=== PATIENT | male | born 2000 | race Caucasian/White ===

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

== ENCOUNTER → 2020-06-15 08:52 | Outpatient (CLI) | payer OTHER, SELFPAY ==
[2020-06-15 08:28] VITALS: BMI 19.5
[2020-06-15 12:51] LABS: Absolute Lymphocyte Count 2.95 X10^3/uL (0.83-4.51); Absolute Neutrophil Count 4.2 X10^3/uL (2.0-7.7); Basophil# 0.02 X10^3/uL; Basophil% 0.3 % (0-1); Eosinophil# 0.17 X10^3/uL; Eosinophils% 2.2 % (0-5); Hematocrit 45.9 % (40-54); Hemoglobin 14.8 g/dL (13.0-16.5); Lymphocyte # 2.95 X10^3/ul (4.0); Lymphocyte % 37.4 % (19-41); Mean Corp Hgb Conc 32.2 g/dL (32-36); Mean Corpuscular Hgb 30.1 pg (27.0-32.0); Mean Corpuscular Volume 93.5 fL (80-94); Mean Platelet Vol. 10.6 fl (6.2-12.0); Monocyte% 6.3 % (0-10); NRBC Flagged by Analyzer 0 % (0-5); Neutrophil # 4.24 X10^3/uL (2.7-7.7); Neutrophil % 53.7 % (47-70); Platelet Count 285 K/mm3 (150-450); RBC Distribution Width CV 11.5 % (11.6-14.6); RBC Distribution Width SD 39.6 fl (35.1-43.9); Red Blood Count 4.91 M/mm3 (4.6-6.2); White Blood Count 7.9 K/mm3 (4.4-11.0)
[2020-06-15 13:16] LABS: Anion Gap 5 (5-15); BUN 18 mg/dL (7-18); BUN/Creat Ratio 22.3 RATIO (10-20); Chloride 104 mmol/L (98-107); Creatinine, Serum 0.81 mg/dL (0.70-1.30); EST Glomerular Filtration Rate 129 mL/min (>60); Est Glom Filt Rate - Afr Amer 157 mL/min (>60); Glucose 99 mg/dL (74-106); Potassium 4.5 mmol/L (3.5-5.1); Sodium Level 139 mmol/L (136-145); T4 Free Direct 0.97 ng/dL (0.76-1.46); Thyroid Stim Hormone (TSH) 1.76 uIU/mL (0.358-3.74)
== END ==
PROVIDERS: PCP Family Medicine; Referring Provider Family Medicine; Visit Provider Family Medicine
DX: F41.9 Anxiety disorder, unspecified (principal); R53.83 Other fatigue; R00.0 Tachycardia, unspecified
CPT/HCPCS: 36415; 80048; 84439; 84443; 85025

== ENCOUNTER → 2020-07-06 07:38 | Outpatient (CLI) | payer OTHER, SELFPAY ==
[2020-06-15 08:28] VITALS: BMI 19.5
--- NOTE | 2020-07-06 07:43 | ECHOD_ITS ---
Reason For Study: possible marfans syncrome Procedure This was a 2D Doppler, Color Flow transthoracic echocardiogram. The study was technically difficult. Due to body habitus and poor apical windows. Exam performed in department. Left Ventricle Normal LV size. Left ventricular systolic function is normal. The estimated ejection fraction is 60 %. No evidence for diastolic dysfunction. No regional wall motion abnormalities noted. Right Ventricle Normal RV size. Normal systolic function. Atria Normal left atrium. Normal right atrium. No doppler evidence for ASD. Mitral Valve There is no mitral annular calcification. Anterior leaflet diffuse mitral valve thickening. Trivial mitral valve insufficiency. Tricuspid Valve Normal tricuspid valve. Trivial tricuspid valve insufficiency. Right ventricular systolic pressure estimated to be 20 mmHg. Aortic Valve Trisinus/trileaflet aortic valve. Normal aortic valve. Pulmonic Valve The pulmonic valve is not well visualized. Trivial pulmonic valve insufficiency. Great Vessels The aortic root is not well visualized. Pericardium/Pleural No pericardial effusion. MMode/2D Measurements & Calculations LVIDd: 4.4 cm IVSd: 1.0 cm Ao root diam: 3.1 cm LVIDs: 2.8 cm LVPWd: 1.0 cm RVDd: 3.1 cm FS: 35.9 % LA A4 area: 11.9 cm2 RA A4 area: 11.7 cm2 Time Measurements MV dec time: 0.19 sec Doppler Measurements & Calculations MV E max chetan: 78.8 cm/sec Lat Peak E' Chetan: 12.6 cm/sec Med Peak E' Chetan: 12.3 cm/sec MV A max chetan: 46.6 cm/sec E/E' lat: 6.3 E/E' med: 6.4 MV E/A: 1.7 PA V2 max: 79.7 cm/sec TR max chetan: 208.2 cm/sec TR max P.4 mmHg Interpretation Summary The study was technically difficult. Left ventricular systolic function is normal. The estimated ejection fraction is 60 %. Anterior leaflet diffuse mitral valve thickening. Trivial mitral valve insufficiency. Trivial tricuspid valve insufficiency. Trivial pulmonic valve insufficiency. Right ventricular systolic pressure estimated to be 20 mmHg. No evidence for diastolic dysfunction. Comment: The aortic root is not well visualized. Consider further evaluation of the thoracic aorta with chest CT scan with IV contrast if clinically indicated. Ordering Physician: Rodrigo Romeo Referring Physician: Rodrigo Romeo Performed By: Cyndi Smith RVT, RDCS and Student
== END ==
PROVIDERS: PCP Family Medicine; Referring Provider Family Medicine; Visit Provider Family Medicine
DX: R29.91 Unspecified symptoms and signs involving the musculoskeletal system (principal)
CPT/HCPCS: 93306

== ENCOUNTER → 2021-05-22 11:16 | Outpatient (CLI) | payer OTHER, SELFPAY ==
[2021-05-19 14:00] VITALS: BMI 19.5
--- NOTE | 2021-05-22 11:19 | EKG12_ITS ---
Test Reason : CP PALP Blood Pressure : / mmHG Vent. Rate : 061 BPM Atrial Rate : 061 BPM P-R Int : 152 ms QRS Dur : 082 ms QT Int : 392 ms P-R-T Axes : 057 067 064 degrees QTc Int : 394 ms Normal sinus rhythm Normal ECG Confirmed by JASON CODY, PASCUAL ([id number]), image editor ZARINA MARCUS ([id number]) on 05/23/2021 9:34:06 AM Referred By: Sabine Bobo Confirmed By:PASCUAL GOMEZ MD
== END ==
LOC: PSN 11:17
PROVIDERS: PCP Family Medicine; Referring Provider Physician Assistant; Visit Provider Physician Assistant
DX: R00.2 Palpitations (principal); R07.9 Chest pain, unspecified
CPT/HCPCS: 93005

== ENCOUNTER 2021-05-27 14:38 | Emergency (ER) | payer OTHER, SELFPAY ==
[2021-05-19 14:00] VITALS: BMI 19.5
[2021-05-27 14:38] VITALS: BP 129/83; PULSE 92; RESP 15; TEMP 36.8; O2SAT 100; BMI 20.3
--- NOTE | 2021-05-27 15:21 | EDS_ITS ---
HPI History of Present Illness Chief Complaint: Lower Extremity Injury Narrative Narrative: 21-year-old male presenting with pain in the right proximal femoral area medially. He states that it just appeared last night. Patient has not done anything strenuous. He states he has not felt a pop. He states this woke him up from sleep and he has a small lump here. Patient denies any testicular pain or penile pain. He denies dysuria or hematuria. He does have radiation of the pain down the leg anteriorly and posteriorly. He has not had fever, chills, nausea, vomiting. PFSH PFS Medical History Hearing problem IBS (irritable bowel syndrome) Seasonal allergies Home Medications calcium carbonate 200 mg calcium (500 mg) chewable tablet 200 mg PO .QID PRN tab 05/31/20 [History Last Taken Unknown] Allergy/AdvReac Type Severity Reaction Status Date / Time No Known Allergies Allergy Unverified 06/15/20 08:26 Family History Grandfather Cancer Parkinson disease Thyroid disorder Grandmother Cancer Osteoporosis Father Arthritis Myocardial infarction, Onset Age: 54 Cancer skin Spinal stenosis Mother Thyroid disorder Social History Smoking Status: Never smoker alcohol intake: current alcohol intake frequency: a few times a week substance use type: does not use what type of physical activity do you participate in: walking, running and weight training frequency: 3-4 times per week ROS ROS ED Constitutional Constitutional ED: Denies chills or fever(s) Eyes Eyes: Denies blurry vision or change in vision ENT ENT ED: Denies ear pain, rhinorrhea or sore throat Cardiovascular Cardiovascular: Denies chest pain or palpitations Respiratory/Chest Respiratory/Chest: Denies cough, dyspnea or sputum Gastrointestinal Gastrointestinal: Denies abdominal pain, nausea or vomiting Genitourinary Genitourinary ED: Denies dysuria or hematuria Musculoskeletal Musculoskeletal: Reports other Details: Small lump in the right proximal femoral region. ; Denies back pain Integumentary Denies abscess or rash Neurologic Neurologic: Denies headache(s) or weakness Psychiatric Psychiatric: Denies anxiety or depression EXAM Physical Exam Const Vital Signs: 05/27/21 14:38 05/27/21 18:32 Temperature 98.3 F Temperature Source Temporal Pulse Rate 92 66 Respiratory Rate 15 17 Blood Pressure 129/83 H 128/81 H Blood Pressure Mean 98 96 Pulse Ox 100 Oxygen Delivery Method Room Air Positive well nourished and well developed General Appearance ED: well developed HEENT Reports moist mucous membranes Negative for trauma Eyes PERRL and EOMs intact bilaterally Resp normal respiratory effort and clear to auscultation bilaterally Cardio regular rate and regular rhythm GI normal to inspection, nondistended, normoactive bowel sounds Extremity Extremity Narrative: Painful 2 cm lump in the right proximal femoral region. No erythema or ecchymosis. Neuro oriented x3 Sensorium / Orientation: alert Psych mental status grossly normal Skin no rashes or lesions noted and no wounds MDM MDM MDM Narrative Medical decision making narrative: Patient presents with painful area in the right inguinal region. I do see this and I am able to palpate it but it does not feel like an abscess or a lymph node. I also do not feel like it is a hernia. Patient stating the pain is very exquisite. I did lab work which shows no leukocytosis and has a negative lactic acid and a negative urinalysis. CT of the abdomen pelvis with IV contrast shows no acute findings in this area. Upon hearing the results the patient asked when can I go home. Patient counseled use Tylenol and ibuprofen for pain. Impression: 1. Right inguinal pain Lab Data Attestation: I reviewed the patient's lab results. Labs: Laboratory Results - last 24 hr 05/27/21 05/27/21 05/27/21 15:30 15:30 15:30 WBC 6.7 RBC 4.81 Hgb 14.7 Hct 43.6 MCV 90.6 MCH 30.6 MCHC 33.7 RDW Std Deviation 38.5 RDW Coeff of Amalia 11.4 L Plt Count 249 MPV 9.5 Immature Gran % (Auto) 0.500 Neut % (Auto) 71.7 H Lymph % (Auto) 16.8 L Mariposa % (Auto) 10.2 H Eos % (Auto) 0.5 Baso % (Auto) 0.3 Absolute Neuts (auto) 4.8 Absolute Lymphs (auto) 1.12 Nucleated RBC % 0 Sodium 138 Potassium 3.9 Chloride 104 Carbon Dioxide 28.0 Anion Gap 6 BUN 12 Creatinine 0.73 Estim Creat Clear Calc 171.62 Est GFR (MDRD) Af Amer 175 Est GFR (MDRD) Non-Af 144 BUN/Creatinine Ratio 16.5 Glucose 103 Lactic Acid 0.8 Calcium 9.1 Troponin I High Sens < 3.0 L Urine Color Urine Clarity Urine pH Ur Specific Grayling Urine Protein Urine Glucose (UA) Urine Ketones Urine Occult Blood Urine Nitrite Urine Bilirubin Urine Urobilinogen Ur Leukocyte Esterase Urine RBC Urine WBC Ur Squamous Epith Cells Amorphous Sediment Urine Bacteria Urine Mucus 05/27/21 15:46 WBC RBC Hgb Hct MCV MCH MCHC RDW Std Deviation RDW Coeff of Amalia Plt Count MPV Immature Gran % (Auto) Neut % (Auto) Lymph % (Auto) Mariposa % (Auto) Eos % (Auto) Baso % (Auto) Absolute Neuts (auto) Absolute Lymphs (auto) Nucleated RBC % Sodium Potassium Chloride Carbon Dioxide Anion Gap BUN Creatinine Estim Creat Clear Calc Est GFR (MDRD) Af Amer Est GFR (MDRD) Non-Af BUN/Creatinine Ratio Glucose Lactic Acid Calcium Troponin I High Sens Urine Color Yellow Urine Clarity Sl. Cloudy Urine pH 8.0 Ur Specific Grayling 1.015 Urine Protein Negative Urine Glucose (UA) Normal Urine Ketones 5 H Urine Occult Blood Negative Urine Nitrite Negative Urine Bilirubin Negative Urine Urobilinogen Normal Ur Leukocyte Esterase Negative Urine RBC 0 SEEN Urine WBC 0-5 SEEN Ur Squamous Epith Cells 0 SEEN Amorphous Sediment 1+ Urine Bacteria 0 SEEN Urine Mucus 0 SEEN Radiography Diagnostic Testing: Radiology Impression Abdomen/Pelvis CT 05/27/21 16:59 IMPRESSION: No acute findings in the abdomen or pelvis. Electronically Signed: Yves Guillen MD ([place]) at 17:26 EDT , Service support , Discharge Plan Triage Chief Complaint: Lower Extremity Injury ED Provider: Charles Lugo Dx/Rx/DC Orders Instructions: ED Groin Strain Prescriptions: No Action calcium carbonate 200 mg calcium (500 mg) tablet,chewable 200 mg PO .QID PRN (Reason: gerd) RF: 0 Stand Alone Forms: ED Work / School Excuse Primary Care Provider: Rodrigo Romeo Referrals: Rodrigo Romeo, DO [Primary Care Provider] - Disposition Disposition: Home, Self Care Discharge Date/Time: 05/27/21 18:37
[2021-05-27] MEDS: Ondansetron 4 MG/2 ML Vial IV (15:42)
[2021-05-27] MEDS: Morphine 4 MG/ML Syringe IV (15:42)
[2021-05-27 15:44] LABS: Absolute Lymphocyte Count 1.12 X10^3/uL (0.83-4.51); Absolute Neutrophil Count 4.8 X10^3/uL (2.0-7.7); Basophil# 0.02 X10^3/uL; Basophil% 0.3 % (0-1); Eosinophil# 0.03 X10^3/uL; Eosinophils% 0.5 % (0-5); Hematocrit 43.6 % (40-54); Hemoglobin 14.7 g/dL (13.0-16.5); Lymphocyte # 1.12 X10^3/ul (0.83-4.51); Lymphocyte % 16.8 % (19-41); Mean Corp Hgb Conc 33.7 g/dL (32-36); Mean Corpuscular Hgb 30.6 pg (27.0-32.0); Mean Corpuscular Volume 90.6 fL (80-94); Mean Platelet Vol. 9.5 fl (6.2-12.0); Monocyte# 0.68 X10^3/uL; Monocyte% 10.2 % (0-10); NRBC Flagged by Analyzer 0 % (0-5); Neutrophil # 4.78 X10^3/uL (2.7-7.7); Neutrophil % 71.7 % (47-70); Platelet Count 249 K/mm3 (150-450); RBC Distribution Width CV 11.4 % (11.6-14.6); RBC Distribution Width SD 38.5 fl (35.1-43.9); Red Blood Count 4.81 M/mm3 (4.6-6.2); White Blood Count 6.7 K/mm3 (4.4-11.0)
[2021-05-27 15:53] LABS: Bacteria 0 SEEN /hpf (None Seen); Mucous, Urine 0 SEEN /hpf (<or=2+); Red Blood Cells-Urine 0 SEEN /hpf (0-5); Squamous Epithelial Cells - UA 0 SEEN /hpf (0-5)
[2021-05-27 15:56] LABS: Color, Urine Yellow (Yellow); Glucose, Dipstick Normal (Normal); Ketone-Dipstick 5 mg/dl (Negative); Leukocyte Esterase-Dipstick Negative /ul (Negative); Nitrite-Dipstick Negative (Negative); Occult Blood-Urine Negative /ul (Negative); Protein-Dipstick Negative (Negative); Specific Gravity, Urine 1.015 (1.002-1.030); Urine Bilirubin Dipstick Negative (Negative); Urine Clarity Sl. Cloudy (Clear); Urine Urobilinogen Normal (Normal)
[2021-05-27 15:59] LABS: Anion Gap 6 (5-15); BUN 12 mg/dL (7-18); BUN/Creat Ratio 16.5 RATIO (10-20); Calcium,Total 9.1 mg/dL (8.5-10.1); Chloride 104 mmol/L (98-107); Creatinine, Serum 0.73 mg/dL (0.70-1.30); EST Glomerular Filtration Rate 144 mL/min (>60); Est Glom Filt Rate - Afr Amer 175 mL/min (>60); Estimated Creatinine Clearance 171.62 ml/min; Glucose 103 mg/dL (74-106); Potassium 3.9 mmol/L (3.5-5.1); Sodium Level 138 mmol/L (136-145); Troponin-I HS < 3.0 pg/mL (3.0-78.5)
[2021-05-27 16:09] LABS: Lactic Acid 0.8 mmol/L (0.4-1.9)
[2021-05-27 16:16] LABS: Amorphous Sediment 1+
[2021-05-27 16:17] LABS: White Blood Cells 0-5 SEEN /hpf (0-5)
--- NOTE | 2021-05-27 16:59 | CT_ITS ---
EXAM: CT ABDOMEN AND PELVIS WITH INTRAVENOUS CONTRAST CLINICAL INDICATION: rlq pain TECHNIQUE: Helically acquired images were obtained of the abdomen and pelvis with intravenous contrast. This CT exam was performed using one or more of the following dose reduction techniques: automated exposure control, adjustment of the mA and/or kV according to patient size, and/or use of iterative reconstruction technique. This report was created using [employer] report generation technology. CONTRAST: IV 100mL Isovue-300 COMPARISON: None. FINDINGS: LOWER THORAX: Unremarkable. Lung bases are clear. No cardiomegaly. No significant pericardial effusion. ABDOMEN: LIVER: Unremarkable. Homogeneous. No focal mass. GALLBLADDER AND BILE DUCTS: Unremarkable. No calcified gallstones. No gallbladder distention or wall edema. No intra- or extrahepatic biliary ductal dilation. PANCREAS: Unremarkable. No focal cystic or solid mass. SPLEEN: Spleen size at the upper limits of normal. ADRENALS: Unremarkable. No nodules. KIDNEYS AND URETERS: Unremarkable. Normal renal size and position. No hydronephrosis. STOMACH AND BOWEL: Unremarkable. No stomach or bowel distention. No focal inflammatory change. PELVIS: APPENDIX: No evidence of acute appendicitis. BLADDER: Unremarkable. REPRODUCTIVE: Unremarkable as visualized. No mass. ABDOMEN and PELVIS: INTRAPERITONEAL SPACE: Unremarkable. No ascites or other fluid collection. No free air. BONES/JOINTS: Unremarkable. No suspicious lytic or blastic abnormality. SOFT TISSUES: Unremarkable. No discrete abdominal or pelvic wall hernia. VASCULATURE: Unremarkable. Abdominal aorta is non-dilated. LYMPH NODES: Unremarkable. No enlarged lymph nodes. CT/Abdomen/Pelvis W IV Cont ONLY IMPRESSION: No acute findings in the abdomen or pelvis. Electronically Signed: Yves Guillen MD ([place]) at 17:26 EDT , Service support ,
[2021-05-27] MEDS: fentaNYL 100 MCG/2 ML Ampul 25 MCG IV (17:24)
[2021-05-27 18:32] VITALS: BP 128/81; PULSE 66; RESP 17
== END 2021-05-27 18:37 | disposition home or self-care (01) ==
PROVIDERS: Emergency Provider Student in an Organized Health Care Education/Training Program; PCP Family Medicine
DX: M79.651 Pain in right thigh (principal)
CPT/HCPCS: 74177; 80048; 81001; 83605; 84484; 85025; 96374; 96375; 99283; Q9967; A4216; J2405

== ENCOUNTER 2021-05-29 15:00 | Emergency (ER) | payer OTHER, SELFPAY ==
[2021-05-29 15:02] VITALS: BP 115/73; PULSE 106; RESP 15; TEMP 37.6; O2SAT 99; BMI 20.4
--- NOTE | 2021-05-29 16:29 | EDS_ITS ---
HPI History of Present Illness Chief Complaint: Fever Informant: patient Onset/Context/Timing Onset: Weeks (1) Context: Sudden Onset Timing: Continuous Quality: Throbbing, aching Location: Right inguinal area Worsened by: Ambulation Relieved by: Nothing Associated Symptoms Associated Symptoms: Dizziness and lightheadedness Narrative Narrative: Patient presents with right inguinal pain that has been getting worse over the past week. Patient was seen here 2 days ago and had labs and CT scan done at that time. Labs were normal and so was the CT scan. Patient was instructed to continue Tylenol or ibuprofen as needed for pain. Patient was instructed to follow-up with his primary care physician. Patient states that today when he called his primary care physician for follow-up he had a fever of 102 and his primary care physician then referred him back to the emergency department. Patient admits to some mild headache and neck pain. Patient denies any chest pain or shortness of breath. Patient denies any nausea or vomiting. Patient denies any urinary complaints. [facility] Medical History (Updated 05/29/21 @ 18:[address] Kwesi Villarreal DO) Hearing problem IBS (irritable bowel syndrome) Seasonal allergies Home Medications calcium carbonate 200 mg calcium (500 mg) chewable tablet 200 mg PO .QID PRN tab 05/31/20 [History Last Taken Unknown] cephalexin 500 mg PO Q6 #40 capsule 05/29/21 [Rx Last Taken Unknown] Allergy/AdvReac Type Severity Reaction Status Date / Time No Known Allergies Allergy Unverified 06/15/20 08:26 Family History Grandfather Cancer Parkinson disease Thyroid disorder Grandmother Cancer Osteoporosis Father Arthritis Myocardial infarction, Onset Age: 54 Cancer skin Spinal stenosis Mother Thyroid disorder no surgical history Social History Smoking Status: Never smoker alcohol intake: current alcohol intake frequency: a few times a week substance use type: does not use what type of physical activity do you participate in: walking, running and weight training frequency: 3-4 times per week ROS ROS ED Constitutional Constitutional ED: Reports fever(s); Denies chills Eyes Eyes: Denies blurry vision or change in vision ENT ENT ED: Denies rhinorrhea or sore throat Cardiovascular Cardiovascular: Denies chest pain or palpitations Respiratory/Chest Respiratory/Chest: Denies cough or dyspnea Gastrointestinal Gastrointestinal: Denies nausea or vomiting Genitourinary Genitourinary ED: Denies dysuria or hematuria Musculoskeletal Musculoskeletal: Reports neck pain; Denies back pain Integumentary Denies abscess or rash Neurologic Neurologic: Reports headache(s); Denies weakness Allergic/Immunologic Allergic/Immunologic ED: Denies mouth swelling or urticaria EXAM Physical Exam Const Vital Signs: 05/29/21 15:02 05/29/21 16:01 Temperature 99.6 F H Temperature Source Temporal Pulse Rate 106 H Respiratory Rate 15 Respiratory Effort Normal Non-Labored Respiratory Pattern Normal Blood Pressure 115/73 Blood Pressure Mean 87 Pulse Ox 99 Oxygen Delivery Method Room Air Positive well nourished and well developed General Appearance ED: well developed HEENT Reports moist mucous membranes Neck supple and no JVD Resp normal respiratory effort and clear to auscultation bilaterally Cardio regular rate, regular rhythm and no murmurs GI normal to inspection, nondistended, normoactive bowel sounds GI Narrative: There are no inguinal hernias palpated. Palpation: soft and tender other (Right inguinal); Negative for guarding or rebound tenderness present Extremity normal to inspection General Extremety ED: Negative for edema or tenderness General Extremity: Negative for edema Neuro oriented x3, CN's II-XII intact bilaterally and no sensory deficits noted Sensorium / Orientation: alert Motor Exam: strength 5/5 throughout Psych mental status grossly normal Skin no rashes or lesions noted MDM MDM MDM Narrative Medical decision making narrative: Patient was given IV fluids here. CBC and comprehensive metabolic profile were obtained and were essentially within normal limits. Urinalysis does not show any evidence of urinary tract infection. The tenderness in the right inguinal area is from tender swollen lymph nodes. There is no inguinal hernia noted. Patient was given a prescription for Keflex. Patient was instructed to continue Tylenol and ibuprofen as needed for any fevers or pain. Patient was instructed to follow-up with his primary care physician in 3 to 5 days. Patient understood and was agreeable with the plan. All questions were answered. Lab Data Attestation: I reviewed the patient's lab results. Labs: Laboratory Results - last 24 hr 05/29/21 05/29/21 05/29/21 16:41 16:50 16:50 WBC 4.1 L RBC 4.79 Hgb 14.8 Hct 43.3 MCV 90.4 MCH 30.9 MCHC 34.2 RDW Std Deviation 38.3 RDW Coeff of Amalia 11.5 L Plt Count 208 MPV 9.6 Immature Gran % (Auto) 0.700 Neut % (Auto) 69.5 Lymph % (Auto) 15.9 L [place] % (Auto) 13.2 H Eos % (Auto) 0.2 Baso % (Auto) 0.5 Absolute Neuts (auto) 2.8 Absolute Lymphs (auto) 0.65 L Nucleated RBC % 0 Sodium 137 Potassium 3.5 Chloride 100 Carbon Dioxide 30.0 Anion Gap 7 BUN 7 Creatinine 0.85 Estim Creat Clear Calc 148.17 Est GFR (MDRD) Af Amer 146 Est GFR (MDRD) Non-Af 121 BUN/Creatinine Ratio 8.2 L Glucose 123 H Calcium 8.9 Total Bilirubin 0.60 AST 19 ALT 21 Alkaline Phosphatase 79 Total Protein 7.6 Albumin 4.0 Globulin 3.6 Albumin/Globulin Ratio 1.1 Urine Color Yellow Urine Clarity Clear Urine pH 6.0 Ur Specific [place] 1.020 Urine Protein Negative Urine Glucose (UA) 50 H Urine Ketones 15 H Urine Occult Blood Negative Urine Nitrite Negative Urine Bilirubin Negative Urine Urobilinogen Normal Ur Leukocyte Esterase Negative Urine RBC 0 SEEN Urine WBC 0 SEEN Ur Squamous Epith Cells 0 SEEN Urine Bacteria 1+ Urine Mucus 0 SEEN Radiography Chest X-Ray - ED: 1 View, Read by ED Physician, Read by Radiologist and Normal Diagnostic Testing: Radiology Impression Chest X-Ray 05/29/21 16:49 IMPRESSION: Normal x-ray examination of the chest. Electronically Signed: Manjit Flowers DO at 16:57 EDT Tel [phone], Service support , Discharge Plan Triage Chief Complaint: Fever ED Provider: Kwesi Villarreal Dx/Rx/DC Orders Clinical Impression: Inguinal lymphadenitis Instructions: Lymphadenopathy Prescriptions: New cephalexin [cephalexin] 500 MG capsule 500 mg PO Q6 Qty: 40 RF: 0 No Action calcium carbonate 200 mg calcium (500 mg) tablet,chewable 200 mg PO .QID PRN (Reason: gerd) RF: 0 Primary Care Provider: Rodrigo Romeo Referrals: Rodrigo Romeo DO [Primary Care Provider] - 3-5 Days Disposition Disposition: Home, Self Care
[2021-05-29 16:48] LABS: Mucous, Urine 0 SEEN /hpf (<or=2+); Red Blood Cells-Urine 0 SEEN /hpf (0-5); Squamous Epithelial Cells - UA 0 SEEN /hpf (0-5); White Blood Cells 0 SEEN /hpf (0-5)
--- NOTE | 2021-05-29 16:49 | RAD_ITS ---
STUDY: X-RAY CHEST REASON FOR EXAM: Male, 21 years old. Fever. Swollen lymph nodes in brain for 2 days TECHNIQUE: Single AP portable view of the chest. COMPARISON: None. FINDINGS: The lungs are clear and expanded. There is no demonstrated pleural abnormality. Normal size heart. Normal mediastinum and laura. Normal visualized pulmonary arteries. Normal visualized aortic arch and descending thoracic aorta. Normal visualized thoracic spine. Normal visualized ribs, clavicles, and shoulders. There is no demonstrated abnormality of the visualized soft tissue structures of the upper abdomen. RAD/Chest 1 View (Portable) IMPRESSION: Normal x-ray examination of the chest. Electronically Signed: Manjit Flowers DO at 16:57 EDT Tel [phone], Service support ,
[2021-05-29] MEDS: 0.9% Normal Saline 1,000 ML 1000 ML IV (16:57)
[2021-05-29 17:04] LABS: Color, Urine Yellow (Yellow); Glucose, Dipstick 50 mg/dl (Normal); Ketone-Dipstick 15 mg/dl (Negative); Leukocyte Esterase-Dipstick Negative /ul (Negative); Nitrite-Dipstick Negative (Negative); Occult Blood-Urine Negative /ul (Negative); Protein-Dipstick Negative (Negative); Urine Bilirubin Dipstick Negative (Negative); Urine Clarity Clear (Clear); Urine Urobilinogen Normal (Normal)
[2021-05-29 17:24] LABS: Bacteria 1+ /hpf (None Seen)
[2021-05-29 17:24] LABS: Absolute Lymphocyte Count 0.65 X10^3/uL (0.83-4.51); Absolute Neutrophil Count 2.8 X10^3/uL (2.0-7.7); Basophil# 0.02 X10^3/uL; Basophil% 0.5 % (0-1); Eosinophil# 0.01 X10^3/uL; Eosinophils% 0.2 % (0-5); Hematocrit 43.3 % (40-54); Hemoglobin 14.8 g/dL (13.0-16.5); Lymphocyte # 0.65 X10^3/ul (0.83-4.51); Lymphocyte % 15.9 % (19-41); Mean Corp Hgb Conc 34.2 g/dL (32-36); Mean Corpuscular Hgb 30.9 pg (27.0-32.0); Mean Corpuscular Volume 90.4 fL (80-94); Mean Platelet Vol. 9.6 fl (6.2-12.0); Monocyte# 0.54 X10^3/uL; Monocyte% 13.2 % (0-10); NRBC Flagged by Analyzer 0 % (0-5); Neutrophil # 2.83 X10^3/uL (2.7-7.7); Neutrophil % 69.5 % (47-70); Platelet Count 208 K/mm3 (150-450); RBC Distribution Width CV 11.5 % (11.6-14.6); RBC Distribution Width SD 38.3 fl (35.1-43.9); Red Blood Count 4.79 M/mm3 (4.6-6.2); White Blood Count 4.1 K/mm3 (4.4-11.0)
[2021-05-29 17:41] LABS: ALB/GLOB Ratio 1.1 RATIO (0.9-2.4); AST(SGOT) 19 U/L (15-37); Alanine Aminotransfer ALT/SGPT 21 U/L (16-61); Alkaline Phosphatase 79 U/L (45-117); Anion Gap 7 (5-15); BUN 7 mg/dL (7-18); BUN/Creat Ratio 8.2 RATIO (10-20); Calcium,Total 8.9 mg/dL (8.5-10.1); Chloride 100 mmol/L (98-107); Creatinine, Serum 0.85 mg/dL (0.70-1.30); EST Glomerular Filtration Rate 121 mL/min (>60); Est Glom Filt Rate - Afr Amer 146 mL/min (>60); Estimated Creatinine Clearance 148.17 ml/min; Globulin 3.6 g/dL (2.2-4.2); Glucose 123 mg/dL (74-106); Potassium 3.5 mmol/L (3.5-5.1); Protein, Total 7.6 g/dL (6.4-8.2); Sodium Level 137 mmol/L (136-145)
[2021-05-29] MEDS: Cephalexin 500 MG Capsule PO (18:24)
[2021-05-29 18:25] VITALS: BP 114/67; PULSE 68; RESP 15; O2SAT 97
== END 2021-05-29 18:25 | disposition home or self-care (01) ==
PROVIDERS: Emergency Provider Emergency Medicine; PCP Family Medicine
DX: I88.9 Nonspecific lymphadenitis, unspecified (principal)
CPT/HCPCS: 71045; 80053; 81001; 85025; 99284; J7030

== ENCOUNTER → 2021-06-02 14:50 | Outpatient (CLI) | payer OTHER, SELFPAY ==
[2021-05-19 14:00] VITALS: BMI 19.5
[2021-06-01 09:39] VITALS: BMI 20.4
--- NOTE | 2021-06-02 14:55 | CT_ITS ---
STUDY: CT CHEST WITH CONTRAST REASON FOR EXAM: Male, 21 years old. possible marfan''s RADIATION DOSAGE (If Supplied By Facility): CTDIvol = ( 5.04 ) mGy, DLP = ( 280.02 ) mGycm TECHNIQUE: Transaxial imaging was performed following intravenous administration of IV 100ML ISOVUE 300. Multiplanar coronal and sagittal images were reformatted. Individualized dose optimization techniques were used for this CT. COMPARISON: None. FINDINGS: The lungs are normal. There is no demonstrated pleural abnormality. Normal heart and pericardium. Normal mediastinum. Normal hilar regions. Normal enhanced pulmonary arteries. Normal aorta arch and descending thoracic aorta. Relative narrowing of the AP dimension of the chest (at lower sternum) in relation to the transverse dimension (Ellen index measures 3.3). More pronounced posterior orientation of the xiphoid likely results in a higher index measurement. There is no demonstrated abnormality of the visualized upper abdomen. CT/Chest WITH Contrast IMPRESSION: 1. No thoracic aortic dissection or coarctation identified (not a dedicated CTA). 2. Pectus excavatum, which can be associated with Marfan''s syndrome. Electronically Signed: Yves Guillen MD ([place]) at 15:33 EDT , Service support ,
== END ==
LOC: CT 14:53
PROVIDERS: PCP Family Medicine; Referring Provider Physician Assistant; Visit Provider Physician Assistant
DX: R29.91 Unspecified symptoms and signs involving the musculoskeletal system (principal)
CPT/HCPCS: 71260; Q9967

== ENCOUNTER → 2021-09-20 16:11 | Outpatient (CLI) | payer OTHER, SELFPAY ==
[2021-09-20 16:50] LABS: Absolute Lymphocyte Count 2.32 X10^3/uL (0.83-4.51); Absolute Neutrophil Count 5.8 X10^3/uL (2.0-7.7); Basophil# 0.04 X10^3/uL; Basophil% 0.5 % (0-1); Eosinophil# 0.04 X10^3/uL; Eosinophils% 0.5 % (0-5); Hematocrit 48.1 % (40-54); Hemoglobin 16.1 g/dL (13.0-16.5); Lymphocyte # 2.32 X10^3/ul (0.83-4.51); Lymphocyte % 26.2 % (19-41); Mean Corp Hgb Conc 33.5 g/dL (32-36); Mean Corpuscular Hgb 30.7 pg (27.0-32.0); Mean Corpuscular Volume 91.6 fL (80-94); Mean Platelet Vol. 9.5 fl (6.2-12.0); Monocyte# 0.62 X10^3/uL; NRBC Flagged by Analyzer 0 % (0-5); Neutrophil % 65.5 % (47-70); Platelet Count 321 K/mm3 (150-450); RBC Distribution Width CV 11.9 % (11.6-14.6); RBC Distribution Width SD 39.8 fl (35.1-43.9); Red Blood Count 5.25 M/mm3 (4.6-6.2); White Blood Count 8.9 K/mm3 (4.4-11.0)
[2021-09-20 17:20] LABS: Hemoglobin A1c 4.9 % (3.8-5.6)
[2021-09-20 17:36] LABS: ALB/GLOB Ratio 1.2 RATIO (0.9-2.4); AST(SGOT) 18 U/L (15-37); Alanine Aminotransfer ALT/SGPT 24 U/L (16-61); Albumin, Serum 4.4 g/dL (3.2-5.0); Alkaline Phosphatase 71 U/L (45-117); Anion Gap 8 (5-15); BUN 14 mg/dL (7-18); BUN/Creat Ratio 15.7 RATIO (10-20); Calcium,Total 9.3 mg/dL (8.5-10.1); Chloride 103 mmol/L (98-107); Creatinine, Serum 0.89 mg/dL (0.70-1.30); EST Glomerular Filtration Rate 114 mL/min (>60); Est Glom Filt Rate - Afr Amer 138 mL/min (>60); Globulin 3.8 g/dL (2.2-4.2); Glucose 89 mg/dL (74-106); Magnesium 2.4 mg/dL (1.6-2.6); Potassium 3.4 mmol/L (3.5-5.1); Protein, Total 8.2 g/dL (6.4-8.2); Sodium Level 139 mmol/L (136-145); Thyroid Stim Hormone (TSH) 1.29 uIU/mL (0.358-3.74)
== END ==
LOC: BIMLAB 16:12
PROVIDERS: PCP Family Medicine; Referring Provider Nurse Practitioner Family; Visit Provider Nurse Practitioner Family
DX: R00.2 Palpitations (principal); R07.9 Chest pain, unspecified; R55 Syncope and collapse; R73.09 Other abnormal glucose
CPT/HCPCS: 36415; 80053; 83036; 83735; 84443; 85025

== ENCOUNTER 2021-11-14 21:17 | Observation (INO) | payer OTHER, SELFPAY ==
[2021-11-14 21:18] VITALS: BP 141/98; PULSE 89; RESP 17; TEMP 36.8; O2SAT 100
--- NOTE | 2021-11-14 21:39 | EKG12_ITS ---
Test Reason : SYNCOPE Blood Pressure : / mmHG Vent. Rate : 079 BPM Atrial Rate : 079 BPM P-R Int : 162 ms QRS Dur : 088 ms QT Int : 360 ms P-R-T Axes : 062 027 052 degrees QTc Int : 412 ms Normal sinus rhythm Normal ECG Confirmed by LIDIA CODY, KATHY ([id number]), offline editor ZARINA MARCUS ([id number]) on 11/17/2021 1:03:20 PM Referred By: REX Confirmed By:KATHY MURILLO MD
--- NOTE | 2021-11-14 21:50 | RAD_ITS ---
Single PA view of the chest. COMPARISON: CT chest 06/02/2021 and chest x-ray 05/29/2021. HISTORY: Palpitations. FINDINGS: Normal size heart with no evidence of pulmonary vascular congestion. Cardiomediastinal silhouette shows normal contours. Increased lung volumes likely due to deep inspiratory effort without flattening of the diaphragm. No airspace opacity or abnormal interstitial pattern. No pleural effusion or pneumothorax. No nodule or mass. Osseous structures are within normal limits for age. RAD/Chest 1 View IMPRESSION: Normal exam. Electronically Signed: Bobby Green DO at 22:47 EST Tel , Service support ,
[2021-11-14 22:00] LABS: Absolute Lymphocyte Count 2.02 X10^3/uL (0.83-4.51); Absolute Neutrophil Count 5.7 X10^3/uL (2.0-7.7); Basophil# 0.04 X10^3/uL; Basophil% 0.5 % (0-1); Eosinophil# 0.09 X10^3/uL; Eosinophils% 1.1 % (0-5); Hematocrit 48.4 % (40-54); Lymphocyte # 2.02 X10^3/ul (0.83-4.51); Mean Corp Hgb Conc 33.1 g/dL (32-36); Mean Corpuscular Hgb 30.6 pg (27.0-32.0); Mean Corpuscular Volume 92.5 fL (80-94); Mean Platelet Vol. 9.2 fl (6.2-12.0); Monocyte# 0.52 X10^3/uL; Monocyte% 6.2 % (0-10); NRBC Flagged by Analyzer 0 % (0-5); Neutrophil # 5.74 X10^3/uL (2.7-7.7); Platelet Count 377 K/mm3 (150-450); RBC Distribution Width CV 11.9 % (11.6-14.6); RBC Distribution Width SD 40.9 fl (35.1-43.9); Red Blood Count 5.23 M/mm3 (4.6-6.2); White Blood Count 8.4 K/mm3 (4.4-11.0)
[2021-11-14 22:26] LABS: ALB/GLOB Ratio 1.1 RATIO (0.9-2.4); AST(SGOT) 22 U/L (15-37); Alanine Aminotransfer ALT/SGPT 35 U/L (16-61); Albumin, Serum 4.6 g/dL (3.2-5.0); Alkaline Phosphatase 89 U/L (45-117); Anion Gap 6 (5-15); BUN 7 mg/dL (7-18); BUN/Creat Ratio 9.3 RATIO (10-20); Calcium,Total 9.3 mg/dL (8.5-10.1); Chloride 108 mmol/L (98-107); Creatinine, Serum 0.75 mg/dL (0.70-1.30); EST Glomerular Filtration Rate 139 mL/min (>60); Est Glom Filt Rate - Afr Amer 168 mL/min (>60); Estimated Creatinine Clearance 164.93 ml/min; Globulin 4.2 g/dL (2.2-4.2); Glucose 110 mg/dL (74-106); Potassium 3.8 mmol/L (3.5-5.1); Protein, Total 8.8 g/dL (6.4-8.2); Sodium Level 143 mmol/L (136-145); Troponin-I HS < 3 pg/mL (3.0-78.0)
[2021-11-14 22:30] LABS: Amphetamine Urine VISTA NEGATIVE (<1000 ng/mL); Barbiturate Urine VISTA NEGATIVE (< 200 ng/mL); Benzodiazepine Urine VISTA NEGATIVE (< 200 ng/mL); Cocaine Urine VISTA NEGATIVE (< 300 ng/mL); Ecstacy Urine VISTA NEGATIVE (< 500 ng/mL); Methadone Urine VISTA NEGATIVE (< 300 ng/mL); PCP Urine VISTA NEGATIVE (< 25 ng/mL); THC Urine VISTA NEGATIVE (< 50 ng/mL); Vista UDS pH Range 6
--- NOTE | 2021-11-14 23:41 | EDS_ITS ---
HPI History of Present Illness Chief Complaint: Syncope Narrative Narrative: Patient is a 21-year-old male who states over the last 3 months he has been having bouts of dizziness and palpitations. He states he started getting worked up as an outpatient by cardiology and had an event monitor performed a few weeks ago. The event monitor did show runs of narrow complex tachycardia and nonsustained ventricular tachycardia. He reports he takes 50 mg of metoprolol daily. He denies any illicit drug use or excessive stimulant use. He states that today he was just at home sitting on the couch when he had a bout of palpitations which then led to syncope. Father was present during this time and states there was no seizure-like activity or postictal phase. The syncopal event did happen twice within a few hours of each other. Therefore they contacted the patient's ceramic tile installation helper who advised him to come to the hospital for evaluation. [facility] Medical History Allergic rhinitis Anxiety Anxiety about health Chest pain Condyloma acuminata Hearing problem IBS (irritable bowel syndrome) Inguinal lymphadenitis Non-sustained ventricular tachycardia Palpitations Pectus excavatum Pre-syncope Seasonal allergies Home Medications omeprazole 20 mg capsule,delayed release 20 mg PO DAILY PRN 09/20/21 [History Last Taken Unknown] sertraline 50 mg tablet 50 mg PO QDAY #30 tab 09/20/21 [Rx Last Taken Unknown] metoprolol tartrate 25 mg tablet 25 mg PO DAILY #30 tab 11/13/21 [Rx Last Taken Unknown] Allergy/AdvReac Type Severity Reaction Status Date / Time cephalexin Allergy Mild Rash-Hives Verified 11/08/21 12:28 Family History Grandfather Cancer Parkinson disease Thyroid disorder Grandmother Cancer Osteoporosis Father Arthritis Myocardial infarction, Onset Age: 54 Cancer skin Spinal stenosis Heart disease atrial fib Mother Thyroid disorder Other CAD (coronary artery disease) Social History Smoking Status: Never smoker alcohol intake: current alcohol intake frequency: a few times a week substance use type: does not use what type of physical activity do you participate in: walking, running and weight training frequency: 3-4 times per week ROS ROS ED Constitutional Constitutional ED: Denies chills or fever(s) ENT ENT ED: Denies sore throat Cardiovascular Cardiovascular: Reports palpitations and racing heartbeat; Denies chest pain Respiratory/Chest Respiratory/Chest: Denies cough or dyspnea Gastrointestinal Gastrointestinal: Denies abdominal pain, diarrhea, nausea or vomiting Genitourinary Genitourinary ED: Denies dysuria Musculoskeletal Musculoskeletal: Denies myalgias Integumentary Denies rash Neurologic Neurologic: Reports other Details: Positive syncope ; Denies headache(s) Hematologic/Lymphatic Hematologic/Lymphatic: Denies easy bleeding or easy bruising EXAM Physical Exam Const Vital Signs: 11/14/21 21:18 11/14/21 21:48 11/14/21 23:56 Temperature 98.2 F Temperature Source Temporal Pulse Rate 89 90 Respiratory Rate 17 15 Respiratory Effort Normal Non-Labored Respiratory Pattern Normal Blood Pressure 141/98 H 132/89 H Blood Pressure Mean 112 103 Pulse Ox 100 97 Oxygen Delivery Method Room Air Room Air Positive well nourished and well developed General Appearance ED: well developed HEENT Reports moist mucous membranes HEENT Narrative: No tongue or cheek biting noted Eyes PERRL and EOMs intact bilaterally Neck supple Resp normal respiratory effort and clear to auscultation bilaterally Cardio regular rate and regular rhythm GI normal to inspection, nondistended, normoactive bowel sounds, non-tender, non- distended and no masses Auscultation: normoactive bowel sounds Palpation: soft Extremity normal to inspection Neuro oriented x3 and CN's II-XII intact bilaterally Sensorium / Orientation: alert Motor Exam: strength 5/5 throughout Psych mental status grossly normal Skin no rashes or lesions noted MDM MDM MDM Narrative Medical decision making narrative: Patient presented to the ER normal sinus rhythm but with his report of 2 bouts of syncope and palpitations as well as recent event monitor showing narrow complex tachycardia and nonsustained V. tach there was concern that he went into 1 of these dysrhythmias leading to his syncope this evening. Chest x-ray and basic blood work was obtained which shows no clinically significant finding. His ceramic tile installation helper does recommend an electrophysiology consultation. Secondary to this I contacted the [facility] who does agree that with the patient's worsening symptoms and recent dysrhythmias on the event monitor that he should be further evaluated. Therefore patient be transferred to their facility for further evaluation and treatment. The patient did remain hemodynamically stable for his entire stay in the ER Lab Data Attestation: I reviewed the patient's lab results. Labs: Laboratory Results - last 24 hr 11/14/21 11/14/21 11/14/21 21:50 21:50 21:50 WBC 8.4 RBC 5.23 Hgb 16.0 Hct 48.4 MCV 92.5 MCH 30.6 MCHC 33.1 RDW Std Deviation 40.9 RDW Coeff of Amalia 11.9 Plt Count 377 MPV 9.2 Immature Gran % (Auto) 0.200 Neut % (Auto) 68.0 Lymph % (Auto) 24.0 [place] % (Auto) 6.2 Eos % (Auto) 1.1 Baso % (Auto) 0.5 Absolute Neuts (auto) 5.7 Absolute Lymphs (auto) 2.02 Nucleated RBC % 0 Sodium 143 Potassium 3.8 Chloride 108 H Carbon Dioxide 29.0 Anion Gap 6 BUN 7 Creatinine 0.75 Estim Creat Clear Calc 164.93 Est GFR (MDRD) Af Amer 168 Est GFR (MDRD) Non-Af 139 BUN/Creatinine Ratio 9.3 L Glucose 110 H Calcium 9.3 Total Bilirubin 0.50 AST 22 ALT 35 Alkaline Phosphatase 89 Troponin I High Sens < 3 L Total Protein 8.8 H Albumin 4.6 Globulin 4.2 Albumin/Globulin Ratio 1.1 Urine Opiates Screen Urine Methadone Screen Ur Barbiturates Screen Ur Phencyclidine Scrn Ur Amphetamines Screen U Methamphetamin-MDMA U Benzodiazepines Scrn Urine Cocaine Screen U Cannabinoids Screen Ur Drug Screen Comment Ethyl Alcohol 173.0 11/14/21 22:00 WBC RBC Hgb Hct MCV MCH MCHC RDW Std Deviation RDW Coeff of Amalia Plt Count MPV Immature Gran % (Auto) Neut % (Auto) Lymph % (Auto) [place] % (Auto) Eos % (Auto) Baso % (Auto) Absolute Neuts (auto) Absolute Lymphs (auto) Nucleated RBC % Sodium Potassium Chloride Carbon Dioxide Anion Gap BUN Creatinine Estim Creat Clear Calc Est GFR (MDRD) Af Amer Est GFR (MDRD) Non-Af BUN/Creatinine Ratio Glucose Calcium Total Bilirubin AST ALT Alkaline Phosphatase Troponin I High Sens Total Protein Albumin Globulin Albumin/Globulin Ratio Urine Opiates Screen NEGATIVE Urine Methadone Screen NEGATIVE Ur Barbiturates Screen NEGATIVE Ur Phencyclidine Scrn NEGATIVE Ur Amphetamines Screen NEGATIVE U Methamphetamin-MDMA NEGATIVE U Benzodiazepines Scrn NEGATIVE Urine Cocaine Screen NEGATIVE U Cannabinoids Screen NEGATIVE Ur Drug Screen Comment Ethyl Alcohol Radiography Diagnostic Testing: Clinical Impression(s) from Imaging Studies Chest X-Ray 11/14/21 21:50 IMPRESSION: Normal exam. Electronically Signed: Bobby Green DO at 22:47 EST Tel , Service support , Discharge Plan Triage Chief Complaint: Syncope ED Provider: Fady Reddy Dx/Rx/DC Orders Clinical Impression: Syncope, Palpitations Prescriptions: No Action omeprazole 20 mg capsule,delayed release(DR/EC) 20 mg PO DAILY PRN (Reason: Heartburn) RF: 0 sertraline 50 mg tablet 50 mg PO QDAY Qty: 30 RF: 1 metoprolol tartrate 25 mg tablet 25 mg PO DAILY Qty: 30 RF: 3 Primary Care Provider: Rodrigo Romeo Referrals: Rodrigo Romeo DO [Primary Care Provider] - Disposition Disposition: Transfer to Another Type HCF Discharge Location: [facility]
[2021-11-14 23:56] VITALS: BP 132/89; PULSE 90; RESP 15; O2SAT 97
[2021-11-15] VITALS (12 sets, daily range): BP systolic 95–154; BP diastolic 58–96; PULSE 58–82; RESP 15–20; TEMP 36.4–36.8; O2SAT 95–99; BMI 19.3
--- NOTE | 2021-11-15 00:02 | ED.RN ---
[facility] DENIED THE PATIENT DUE TO BEING OUT OF THE ZONE, [facility] SAID NO DUE TO HIM BEING OVER 18 AND [facility] IS TALKING TO [place]
[2021-11-15 02:03] LABS: Magnesium 2.6 mg/dL (1.6-2.6)
--- NOTE | 2021-11-15 03:37 | ED.RN ---
CALLED [facility] FOR A BED UPDATE, THEY SAID WE ARE STILL WAITING ON A BED ASSIGNMENT
--- NOTE | 2021-11-15 08:52 | NURSING ---
CALLED [facility] TRANSFER LINE. TALKED TO DHEERAJ.. BEDS ARE CRITICAL. NO BED YET
--- NOTE | 2021-11-15 09:51 | PCM.HP.STD ---
HPI - General General Date of Admission: 11/15/21 HPI Narrative CINDY CUNNINGHAM, is a 21 M came to ED for palpitation. Patient has palpitation ongoing since May but is progressively getting worse and is more related with exertion and work. Patient has episodes of dizziness and palpitations and 1 day before admission when he was in the bar and had for 12 ounces beer he passed out for few seconds according to his friends. After that his father told him to come to ER. Patient also having flushing sensation, palpitation and dizziness. Prior to that patient has been evaluated by heat and frost insulator Dr. Post lead EKG and 2D echo. Twelve-lead EKG on 22 May 2021 shows normal sinus rhythm, P mitrale similar to the present EKG at 79 bpm, QTC 412 ms. Normal axis, MA interval and QRS duration. TSH, serial troponins and magnesium are normal. Patient had Covid infection past October 2020 and was vaccinated in . [facility] Medical History Allergic rhinitis Anxiety Anxiety about health Chest pain Condyloma acuminata Hearing problem IBS (irritable bowel syndrome) Inguinal lymphadenitis Non-sustained ventricular tachycardia Palpitations Pectus excavatum Pre-syncope Seasonal allergies Home Medications omeprazole 20 mg capsule,delayed release 20 mg PO DAILY PRN 09/20/21 [History Last Taken 11/13/21] sertraline 50 mg tablet 50 mg PO QDAY #30 tab 09/20/21 [Rx Last Taken 11/14/21 19:00] metoprolol tartrate 25 mg tablet 25 mg PO DAILY #30 tab 11/13/21 [Rx Last Taken 11/14/21 19:00] acetaminophen [Tylenol] 650 mg PO Q4H PRN 11/15/21 [History Last Taken Unknown] Allergy/AdvReac Type Severity Reaction Status Date / Time cephalexin Allergy Mild Rash-Hives Verified 11/08/21 12:28 Family History Grandfather Cancer Parkinson disease Thyroid disorder Grandmother Cancer Osteoporosis Father Arthritis Myocardial infarction, Onset Age: 54 Cancer skin Spinal stenosis Heart disease atrial fib Mother Thyroid disorder Other CAD (coronary artery disease) Social History Smoking Status: Current some day smoker tobacco type: cigarettes alcohol intake: current alcohol intake frequency: a few times a week substance use type: does not use what type of physical activity do you participate in: walking, running and weight training frequency: 3-4 times per week ROS ROS Narrative Constitutional: Reports fatigue and weakness HEENT: Reports systems reviewed and no addt'l complaints, except as documented Respiratory/Chest: As mentioned in HPI Gastrointestinal: Denies coffee ground emesis, hematemesis or vomiting Genitourinary: Denies burning urination or new urinary tract symptoms Musculoskeletal: Denies joint pain or limited range of motion Neurologic: Denies seizure-like activity skin: No ulcer. No rash Endocrinology: Reports systems reviewed and no addt'l complaints, except as documented Hematologic/Lymphatic: Reports systems reviewed and no addt'l complaints, except as documented Rest 12 ROS are negative except as mentioned in HPI Vital Signs Vital Signs Vital Signs: 11/14/21 21:18 11/14/21 21:48 11/14/21 23:56 Temperature 98.2 F Temperature Source Temporal Pulse Rate 89 90 Respiratory Rate 17 15 Respiratory Effort Normal Non-Labored Respiratory Pattern Normal Blood Pressure 141/98 H 132/89 H Blood Pressure Mean 112 103 Pulse Ox 100 97 Oxygen Delivery Method Room Air Room Air 11/15/21 01:00 11/15/21 03:00 11/15/21 04:29 Temperature Temperature Source Pulse Rate 65 72 70 Respiratory Rate 20 H 18 18 Respiratory Effort Respiratory Pattern Blood Pressure 115/75 95/58 L 113/70 Blood Pressure Mean 88 70 84 Pulse Ox 95 96 95 Oxygen Delivery Method Room Air Room Air Room Air 11/15/21 05:35 11/15/21 06:24 11/15/21 07:24 Temperature Temperature Source Pulse Rate 62 60 58 L Respiratory Rate 17 16 16 Respiratory Effort Respiratory Pattern Blood Pressure 117/74 101/63 113/70 Blood Pressure Mean 88 75 84 Pulse Ox 96 97 99 Oxygen Delivery Method Room Air Room Air Room Air 11/15/21 08:50 11/15/21 09:09 Temperature Temperature Source Pulse Rate 71 66 Respiratory Rate 18 15 Respiratory Effort Respiratory Pattern Blood Pressure 132/96 H 127/78 H Blood Pressure Mean 108 94 Pulse Ox 97 99 Oxygen Delivery Method Room Air Room Air Weight Weight: 165 lb Body Mass Index (BMI) 20.0 Physical Exam Narrative General: Alert, Oriented x3, Cooperative HEENT: Atraumatic, PERRLA, EOMI, Normocephalic Oral: No Gingival or Mucosal Lesions/ Ulcerations Neck: Supple, No JVD, Negative Carotid Bruits Lungs: Air entry equal in bilateral lungs. No crepitation/rhonchi Cardiovascular: Regular rate, Regular Rhythm, Normal S1, Normal S2, No murmurs Abdomen: Bowel Sounds Present, Soft, Non Tender, Non-Distended : No renal angle tenderness. No suprapubic tenderness. Extremities: No edema, Capillary Refill Less than 3 Seconds Skin: No rashes, No breakdown Musculoskeletal: No Tenderness to Palpation of Joints or Extremities Neurological: Cranial nerves II-XII grossly intact, DTR 2+/4 and Symmetrical, Neuro grossly intact Psych/Mental Status: Normal Affect, Appropriate. Results Lab / Micro Data Result Diagrams: 11/14/21 21:50 11/14/21 21:50 Labs: Laboratory Results - last 24 hr 11/14/21 21:50: WBC 8.4, RBC 5.23, Hgb 16.0, Hct 48.4, MCV 92.5, MCH 30.6, MCHC 33.1, RDW Std Deviation 40.9, RDW Coeff of Amalia 11.9, Plt Count 377, MPV 9.2, Immature Gran % (Auto) 0.200, Neut % (Auto) 68.0, Lymph % (Auto) 24.0, [place] % (Auto) 6.2, Eos % (Auto) 1.1, Baso % (Auto) 0.5, Absolute Neuts (auto) 5.7, Absolute Lymphs (auto) 2.02, Nucleated RBC % 0 11/14/21 21:50: Sodium 143, Potassium 3.8, Chloride 108 H, Carbon Dioxide 29.0, Anion Gap 6, BUN 7, Creatinine 0.75, Estim Creat Clear Calc 164.93, Est GFR (MDRD) Af Amer 168, Est GFR (MDRD) Non-Af 139, BUN/Creatinine Ratio 9.3 L, Glucose 110 H, Calcium 9.3, Total Bilirubin 0.50, AST 22, ALT 35, Alkaline Phosphatase 89, Troponin I High Sens < 3 L, Total Protein 8.8 H, Albumin 4.6, Globulin 4.2, Albumin/Globulin Ratio 1.1 11/14/21 21:50: Ethyl Alcohol 173.0 11/14/21 21:50: Magnesium 2.6, TSH 2.30 11/14/21 22:00: Urine Opiates Screen NEGATIVE, Urine Methadone Screen NEGATIVE, Ur Barbiturates Screen NEGATIVE, Ur Phencyclidine Scrn NEGATIVE, Ur Amphetamines Screen NEGATIVE, U Methamphetamin-MDMA NEGATIVE, U Benzodiazepines Scrn NEGATIVE, Urine Cocaine Screen NEGATIVE, U Cannabinoids Screen NEGATIVE, Ur Drug Screen Comment Micro: Microbiology 11/15/21 01:20 Nasal Secretion SARS-CoV-2 Antigen (Rapid) - Final Radiology Impression Chest X-Ray 11/14/21 21:50 IMPRESSION: Normal exam. Electronically Signed: Bobby Norma, DO at 22:47 EST Tel , Service support , Assessment & Plan Assessment/Plan (1) Syncope: PLAN: 1. Syncope, exact etiology unclear: It is unclear whether patient had transit passed out because of alcohol intoxication alcohol level was high 173. Patient has history of NSVT on 30-day event monitor. Patient was seen by Dr. Post in the office on 11/08/2021. Previous echo in July 2020 showed EF 60%, normal RV size and systolic function mild anterior mitral valve thickening. The patient was also in [place] for a year in 2017 with a suspicion raised of Sjogren's disease by heat and frost insulator. Currently waiting for bed availability in [facility] where he is accepted for EP evaluation. Serial troponins, serum magnesium, potassium are normal. No EKG change. 2. Supraventricular tachycardia and NSVT: 30-day event showed supraventricular arrhythmia, narrow complex tachycardia with 186 beats per. He also had 1 episode of NSVT. Patient is on metoprolol 25 mg twice daily and continued 3. Pectus excavatum.: Chronic. As per CT scan of 06/20/2021. Cardiac MRI was ordered as outpatient to exclude Marfan syndrome/infiltrative disease and is scheduled in Dr. [facility] congenital. 4. Occasional alcohol/beer. Denies substance no first-degree family history of sudden cardiac /arrhythmia. Full code VTE prophylaxis low risk. Ambulation encouraged Charges/Coding Visit Charges Inpatient E&M: 86590 Init Hosp L3
--- NOTE | 2021-11-15 09:51 | NURSING ---
PCU DAVID SYNCOPE, TACHYCARDIA
--- NOTE | 2021-11-15 10:30 | CASEMGMT ---
According to the [facility] website, the following are in-network tertiary facilities: [facility], [facility], [facility], [facility], [facility], [facility], [facility], [facility], [facility], and . [facility] CM
--- NOTE | 2021-11-15 10:32 | NURSING ---
CALLED [facility] TRANSFER LINE, TALKED TO DES. SHE TOOK UPDATED INFO ON ADMISSION. SHE UNDERSTANDS PATIENT STILL NEEDS TRANSFERRED
--- NOTE | 2021-11-15 10:48 | PCS.PANDOC ---
PANDEMIC DOCUMENTATION INITIATED: Date: 07/17/2021 Time: 190
[2021-11-15] MEDS: Metoprolol Tartrate 25 MG Tablet PO (12:50)
--- NOTE | 2021-11-15 14:55 | NURSING ---
Attempted to call report to [facility] for pt transfer. Was notified nurse will return call in 5 minutes. Phone number given for Progressive care unit and pt will be picked up in 30 minutes.
--- NOTE | 2021-11-15 15:33 | NURSING ---
Report called for pt transfer to [facility], spoke to nurse Pacheco.
--- NOTE | 2021-11-15 15:53 | DS.PCM_ITS ---
Providers Date of Admission: 11/15/21 Primary Care Physician: Dr. Rodrigo Romeo, DO Reason For Visit: ARRTHYMIA Diagnosis Discharge Diagnosis (1) Syncope: Status: Acute Code(s): R55 - Syncope and collapse Medications at Discharge Home Medications omeprazole 20 mg capsule,delayed release 20 mg PO DAILY PRN 09/20/21 sertraline 50 mg tablet 50 mg PO QDAY #30 tab 09/20/21 metoprolol tartrate 25 mg tablet 25 mg PO DAILY #30 tab 11/13/21 acetaminophen [Tylenol] 650 mg PO Q4H PRN 11/15/21 Hospital Course Summary of Care Provided Hospital Course: The patient was admitted through ER for evaluation of palpitation and syncope. Patient is already accepted in [facility] but was admitted in PCU in taking for unavailability of bed. Patient left her [facility] main campus when the bed got available. Please see H&P for details. Physical Exam Narrative Patient was admitted today and accepted in [facility] therefore left. Please see H&P for detailed physical exam findings. Weight / BMI Weight Weight: 158 lb 11.725 oz Body Mass Index (BMI) 19.3 ABG / Lab / Microbiology Data Result Diagrams: 11/14/21 21:50 11/14/21 21:50 Laboratory: Laboratory Results - last 24 hr 11/14/21 21:50: WBC 8.4, RBC 5.23, Hgb 16.0, Hct 48.4, MCV 92.5, MCH 30.6, MCHC 33.1, RDW Std Deviation 40.9, RDW Coeff of Amalia 11.9, Plt Count 377, MPV 9.2, Immature Gran % (Auto) 0.200, Neut % (Auto) 68.0, Lymph % (Auto) 24.0, [place] % (Auto) 6.2, Eos % (Auto) 1.1, Baso % (Auto) 0.5, Absolute Neuts (auto) 5.7, Absolute Lymphs (auto) 2.02, Nucleated RBC % 0 11/14/21 21:50: Sodium 143, Potassium 3.8, Chloride 108 H, Carbon Dioxide 29.0, Anion Gap 6, BUN 7, Creatinine 0.75, Estim Creat Clear Calc 164.93, Est GFR (MDRD) Af Amer 168, Est GFR (MDRD) Non-Af 139, BUN/Creatinine Ratio 9.3 L, Glucose 110 H, Calcium 9.3, Total Bilirubin 0.50, AST 22, ALT 35, Alkaline Phosphatase 89, Troponin I High Sens < 3 L, Total Protein 8.8 H, Albumin 4.6, Globulin 4.2, Albumin/Globulin Ratio 1.1 11/14/21 21:50: Ethyl Alcohol 173.0 11/14/21 21:50: Magnesium 2.6, TSH 2.30 11/14/21 22:00: Urine Opiates Screen NEGATIVE, Urine Methadone Screen NEGATIVE, Ur Barbiturates Screen NEGATIVE, Ur Phencyclidine Scrn NEGATIVE, Ur Amphetamines Screen NEGATIVE, U Methamphetamin-MDMA NEGATIVE, U Benzodiazepines Scrn NEGATIVE, Urine Cocaine Screen NEGATIVE, U Cannabinoids Screen NEGATIVE, Ur Drug Screen Comment Microbiology: Microbiology 11/15/21 01:20 Nasal Secretion SARS-CoV-2 Antigen (Rapid) - Final Radiography Diagnostic Testing: Radiology Impression Chest X-Ray 11/14/21 21:50 IMPRESSION: Normal exam. Electronically Signed: Bobby Green DO at 22:47 EST Tel , Service support , Meaningful Use Info Meaningful Use Diagnoses (Choose all that apply): None applicable Discharge Plan Admission Admit Date/Time: 11/15/21 09:49 Attending Provider: Dangelo Sawyer Primary Care Provider: Rodrigo Romeo Discharge Orders/Prescriptions Prescriptions: No Action omeprazole 20 mg capsule,delayed release(DR/EC) 20 mg PO DAILY PRN (Reason: Heartburn) RF: 0 sertraline 50 mg tablet 50 mg PO QDAY Qty: 30 RF: 1 acetaminophen [Tylenol] 325 mg Capsule 650 mg PO Q4H PRN (Reason: Chest Pain) RF: 0 metoprolol tartrate 25 mg tablet 25 mg PO DAILY Qty: 30 RF: 3 Referrals / Follow Up: Rodrigo Romeo DO [Primary Care Provider] - Disposition Discharge Orders: Discharge Patient (Routine); Ordered 11/15/21 Ordered By: Dr. Dangelo Sawyer Charges/Coding Addendum Addendum: Please cancel the billing charge of patient for the same date. Visit Charges OBSV E&M: 16890 Observ/hosp same date L3
== END 2021-11-15 15:20 | disposition short-term general hospital (02) ==
LOC: ED 11-15 01:02 → PCU 11-16 11:11
PROVIDERS: Admitting Provider Internal Medicine; Emergency Provider Emergency Medicine; PCP Family Medicine; Visit Provider Internal Medicine
DX: R55 Syncope and collapse (principal); R00.2 Palpitations; I47.2 Ventricular tachycardia; F41.9 Anxiety disorder, unspecified; Q67.6 Pectus excavatum; K58.9 Irritable bowel syndrome, unspecified; F10.129 Alcohol abuse with intoxication, unspecified; Y90.6 Blood alcohol level of 120-199 mg/100 ml; F17.210 Nicotine dependence, cigarettes, uncomplicated; Z79.899 Other long term (current) drug therapy; Z86.16 Personal history of COVID-19
CPT/HCPCS: 71045; 80053; 80307; 82077; 83735; 84443; 84484; 85025; 87426; 93005; 99218; 99284; A4216; G0378

== ENCOUNTER 2021-11-19 23:56 | Emergency (ER) | payer OTHER, SELFPAY ==
[2021-11-19 23:56] VITALS: BP 120/94; PULSE 110; RESP 18; TEMP 37; O2SAT 100; BMI 18.2
[2021-11-20] VITALS (12 sets, daily range): BP systolic 118–131; BP diastolic 66–90; PULSE 78–98; RESP 14–18; TEMP 36.3–37; O2SAT 97–99
--- NOTE | 2021-11-20 | EKG12_ITS ---
Test Reason : DYSRYTHMIA Blood Pressure : / mmHG Vent. Rate : 092 BPM Atrial Rate : 092 BPM P-R Int : 158 ms QRS Dur : 086 ms QT Int : 328 ms P-R-T Axes : 062 030 057 degrees QTc Int : 405 ms Normal sinus rhythm Low voltage QRS Confirmed by LIDIA CODY, KATHY ([id number]), editor book ZARINA MARCUS ([id number]) on 11/22/2021 9:48:08 AM Referred By: ROCHELLE Confirmed By:KATHY MURILLO MD
--- NOTE | 2021-11-20 00:29 | ED.RN ---
PT VERBALIZES THAT I KNOW HOW TO MANIPULATE THE SYSTEM AND I WILL MAKE SURE THAT I DON'T GET PINK SLIPPED AND I GET TO GO HOME. PT REPEATEDLY VERBALIZES THAT HE IF HE HAS TO WAIT TOO LONG HE WILL LEAVE.
[2021-11-20 00:41] LABS: Absolute Lymphocyte Count 3.94 X10^3/uL (0.83-4.51); Basophil# 0.06 X10^3/uL; Basophil% 0.5 % (0-1); Eosinophil# 0.17 X10^3/uL; Eosinophils% 1.4 % (0-5); Hematocrit 46.8 % (40-54); Hemoglobin 15.9 g/dL (13.0-16.5); Lymphocyte # 3.94 X10^3/ul (0.83-4.51); Lymphocyte % 33.6 % (19-41); Mean Corpuscular Hgb 31.1 pg (27.0-32.0); Mean Corpuscular Volume 91.4 fL (80-94); Mean Platelet Vol. 9.2 fl (6.2-12.0); Monocyte# 0.56 X10^3/uL; Monocyte% 4.8 % (0-10); NRBC Flagged by Analyzer 0 % (0-5); Neutrophil # 6.98 X10^3/uL (2.7-7.7); Neutrophil % 59.4 % (47-70); Platelet Count 410 K/mm3 (150-450); RBC Distribution Width CV 11.9 % (11.6-14.6); RBC Distribution Width SD 39.9 fl (35.1-43.9); Red Blood Count 5.12 M/mm3 (4.6-6.2); White Blood Count 11.7 K/mm3 (4.4-11.0)
[2021-11-20 00:53] LABS: Anion Gap 6 (5-15); BUN 11 mg/dL (7-18); BUN/Creat Ratio 14.9 RATIO (10-20); Calcium,Total 9.1 mg/dL (8.5-10.1); Chloride 108 mmol/L (98-107); Creatinine, Serum 0.74 mg/dL (0.70-1.30); EST Glomerular Filtration Rate 142 mL/min (>60); Est Glom Filt Rate - Afr Amer 171 mL/min (>60); Estimated Creatinine Clearance 151.96 ml/min; Glucose 109 mg/dL (74-106); Potassium 4.4 mmol/L (3.5-5.1); Sodium Level 143 mmol/L (136-145)
[2021-11-20 01:01] LABS: Amphetamine Urine VISTA NEGATIVE (<1000 ng/mL); Barbiturate Urine VISTA NEGATIVE (< 200 ng/mL); Benzodiazepine Urine VISTA NEGATIVE (< 200 ng/mL); Cocaine Urine VISTA NEGATIVE (< 300 ng/mL); Ecstacy Urine VISTA NEGATIVE (< 500 ng/mL); Methadone Urine VISTA NEGATIVE (< 300 ng/mL); PCP Urine VISTA NEGATIVE (< 25 ng/mL); THC Urine VISTA NEGATIVE (< 50 ng/mL); Vista UDS pH Range 5
--- NOTE | 2021-11-20 01:48 | EX.ED.DYSGE1 ---
HPI <Dr. Geoff Louis MD - Last Filed: 11/20/21 22:43> History of Present Illness Chief Complaint: Suicidal Informant: patient and parent Narrative Narrative: Patient presents after suicidal ideation statements. He does have a history of anxiety. He gets Zoloft. It sounds like this might be prescribed by primary physician. I do not think he is seeing a counselor or psychiatrist at this time. Of note, history is limited due to heavy alcohol intoxication. This patient told a friend that he had tried to kill himself by cutting his wrist. No meds were reportedly taken. The alcohol was drank. Per his mother he has never displayed suicidal thoughts before. This is really a new thing. He is evidently stressed over finances and inability to pay bills. Nothing specifically makes symptoms better or worse. Patient had stated to the nurse that he knows how to manipulate doctors. He is going to leave when he gets the chance. He will walk out of here. It was explained to him that we need to have further evaluation. It was explained that he is expected to stay in the room and be cooperative. We are here to help him. [facility] <Dr. Geoff Louis MD - Last Filed: 11/20/21 22:43> [facility] Medical History Allergic rhinitis Anxiety Anxiety about health Chest pain Condyloma acuminata Hearing problem IBS (irritable bowel syndrome) Inguinal lymphadenitis Non-sustained ventricular tachycardia Palpitations Pectus excavatum Pre-syncope Seasonal allergies Home Medications omeprazole 20 mg capsule,delayed release 20 mg PO DAILY PRN 09/20/21 [History Last Taken 11/13/21] sertraline 50 mg tablet 50 mg PO QDAY #30 tab 09/20/21 [Rx Last Taken 11/14/21 19:00] acetaminophen [Tylenol] 650 mg PO Q4H PRN 11/15/21 [History Last Taken Unknown] Allergy/AdvReac Type Severity Reaction Status Date / Time cephalexin Allergy Mild Rash-Hives Verified 11/20/21 00:03 Penicillins [PCN] Allergy Rash Verified 11/20/21 00:03 Family History Grandfather Cancer Parkinson disease Thyroid disorder Grandmother Cancer Osteoporosis Father Arthritis Myocardial infarction, Onset Age: 54 Cancer skin Spinal stenosis Heart disease atrial fib Mother Thyroid disorder Other CAD (coronary artery disease) Social History Smoking Status: Current some day smoker tobacco type: cigarettes and e-cigarettes alcohol intake: current alcohol intake frequency: a few times a week substance use type: does not use what type of physical activity do you participate in: walking, running and weight training frequency: 3-4 times per week ROS <Dr. Geoff Louis MD - Last Filed: 11/20/21 22:43> ROS ED Review of Systems ROS Unobtainable: due to mental status and other Details: Patient is heavily intoxicated. Constitutional Constitutional ED: Denies fever(s) Eyes Eyes: Denies blurry vision ENT ENT ED: Denies rhinorrhea Cardiovascular Cardiovascular: Reports palpitations and other Details: Patient has a history of some palpitations. He evidently had episode of nonsustained V. tach once. However, he had a month-long title one reading teacher placed that showed no dysrhythmias. He has been off of his medications. He has a another monitor on at this time. He is seeing cardiology. He has not been having any symptoms or syncope. ; Denies chest pain Respiratory/Chest Respiratory/Chest: Denies cough or dyspnea Gastrointestinal Gastrointestinal: Denies diarrhea or vomiting Genitourinary Genitourinary ED: Denies dysuria Musculoskeletal Musculoskeletal: Denies myalgias Integumentary Denies rash Neurologic Neurologic: Denies headache(s) Psychiatric Psychiatric: Reports anxiety, suicidal ideation and suicidal thoughts Endocrine Endocrinology: Denies polydipsia or polyuria Allergic/Immunologic Allergic/Immunologic ED: Denies urticaria EXAM <Dr. Geoff Louis MD - Last Filed: 11/20/21 22:43> Physical Exam Const Vital Signs: 11/19/21 23:56 11/20/21 01:00 11/20/21 02:51 Temperature 98.6 F Temperature Source Temporal Pulse Rate 110 H Respiratory Rate 18 16 14 Blood Pressure 120/94 H Blood Pressure Mean 102 Pulse Ox 100 Oxygen Delivery Method 11/20/21 03:14 11/20/21 04:19 11/20/21 05:17 Temperature Temperature Source Pulse Rate 88 Respiratory Rate 16 14 15 Blood Pressure 118/78 Blood Pressure Mean 91 Pulse Ox 99 Oxygen Delivery Method Room Air 11/20/21 06:00 11/20/21 07:00 11/20/21 08:00 Temperature Temperature Source Pulse Rate Respiratory Rate 16 15 16 Blood Pressure Blood Pressure Mean Pulse Ox Oxygen Delivery Method 11/20/21 09:00 11/20/21 10:00 11/20/21 11:00 Temperature 98.6 F Temperature Source Temporal Pulse Rate 98 Respiratory Rate 15 16 18 Blood Pressure 131/90 H Blood Pressure Mean 103 Pulse Ox 97 Oxygen Delivery Method Room Air 11/20/21 15:02 Temperature 97.4 F L Temperature Source Pulse Rate 78 Respiratory Rate 14 Blood Pressure 118/66 Blood Pressure Mean Pulse Ox 98 Oxygen Delivery Method Patient is asleep. He can be aroused with voice and gentle shaking. Positive well nourished and well developed General Appearance ED: well developed; Negative for cyanotic or diaphoretic HEENT Negative for trauma Eyes PERRL General Eye ED: Negative for pale conjunctiva Neck no JVD Chest Wall Chest Narrative: Long-term title one reading teacher attached anterior chest. Resp normal respiratory effort and clear to auscultation bilaterally Cardio regular rate, regular rhythm and no murmurs GI normal to inspection, nondistended, normoactive bowel sounds and non-tender Palpation: soft Back/Spine no CVA tenderness Extremity normal to inspection General Extremety ED: Negative for edema or tenderness General Extremity: Negative for edema Neuro Sensorium / Orientation: lethargic Psych Psych Narrative: Right now he is quiet. He has been mildly agitated at times. However he has not been threatening to any staff. He has been cooperative. Attitude: agitated Mood & Affect: anxious Skin Skin Narrative: Patient has multiple superficial abrasions/lacerations to his left volar wrist. None of these need suturing. Trauma: abrasion Wounds: wounds noted <Dr. Charles Lugo, DO - Last Filed: 11/20/21 13:42> Physical Exam Const Vital Signs: 11/19/21 23:56 11/20/21 01:00 11/20/21 02:51 Temperature 98.6 F Temperature Source Temporal Pulse Rate 110 H Respiratory Rate 18 16 14 Blood Pressure 120/94 H Blood Pressure Mean 102 Pulse Ox 100 Oxygen Delivery Method 11/20/21 03:14 11/20/21 04:19 11/20/21 05:17 Temperature Temperature Source Pulse Rate 88 Respiratory Rate 16 14 15 Blood Pressure 118/78 Blood Pressure Mean 91 Pulse Ox 99 Oxygen Delivery Method Room Air 11/20/21 06:00 11/20/21 07:00 11/20/21 08:00 Temperature Temperature Source Pulse Rate Respiratory Rate 16 15 16 Blood Pressure Blood Pressure Mean Pulse Ox Oxygen Delivery Method 11/20/21 09:00 11/20/21 10:00 11/20/21 11:00 Temperature 98.6 F Temperature Source Temporal Pulse Rate 98 Respiratory Rate 15 16 18 Blood Pressure 131/90 H Blood Pressure Mean 103 Pulse Ox 97 Oxygen Delivery Method Room Air 11/20/21 15:02 Temperature 97.4 F L Temperature Source Pulse Rate 78 Respiratory Rate 14 Blood Pressure 118/66 Blood Pressure Mean Pulse Ox 98 Oxygen Delivery Method MDM <Dr. Geoff Louis MD - Last Filed: 11/20/21 22:43> MDM MDM Narrative Medical decision making narrative: Patient's EKG shows no acute process. CBC shows minimal elevation of white count which is a nonspecific finding. Electrolytes show no marked abnormalities. Tox screen is negative. Alcohol level was quite elevated at 321. Patient will need further sobriety in order to get a good history and further details. We will have counselor see him once his alcohol level is down. However, he is medically cleared for psychiatric evaluation and admission if needed. We will delay the evaluation until further sobriety though. Lab Data Attestation: I reviewed the patient's lab results. Labs: Laboratory Results - last 24 hr 11/20/21 11/20/21 11/20/21 00:13 00:24 00:24 WBC 11.7 H RBC 5.12 Hgb 15.9 Hct 46.8 MCV 91.4 MCH 31.1 MCHC 34.0 RDW Std Deviation 39.9 RDW Coeff of Amalia 11.9 Plt Count 410 MPV 9.2 Immature Gran % (Auto) 0.300 Neut % (Auto) 59.4 Lymph % (Auto) 33.6 [place] % (Auto) 4.8 Eos % (Auto) 1.4 Baso % (Auto) 0.5 Absolute Neuts (auto) 7.0 Absolute Lymphs (auto) 3.94 Nucleated RBC % 0 Sodium 143 Potassium 4.4 Chloride 108 H Carbon Dioxide 29.0 Anion Gap 6 BUN 11 Creatinine 0.74 Estim Creat Clear Calc 151.96 Est GFR (MDRD) Af Amer 171 Est GFR (MDRD) Non-Af 142 BUN/Creatinine Ratio 14.9 Glucose 109 H Calcium 9.1 Urine Opiates Screen NEGATIVE Urine Methadone Screen NEGATIVE Ur Barbiturates Screen NEGATIVE Ur Phencyclidine Scrn NEGATIVE Ur Amphetamines Screen NEGATIVE U Methamphetamin-MDMA NEGATIVE U Benzodiazepines Scrn NEGATIVE Urine Cocaine Screen NEGATIVE U Cannabinoids Screen NEGATIVE Ur Drug Screen Comment Ethyl Alcohol 11/20/21 11/20/21 00:24 11:48 WBC RBC Hgb Hct MCV MCH MCHC RDW Std Deviation RDW Coeff of Amalia Plt Count MPV Immature Gran % (Auto) Neut % (Auto) Lymph % (Auto) [place] % (Auto) Eos % (Auto) Baso % (Auto) Absolute Neuts (auto) Absolute Lymphs (auto) Nucleated RBC % Sodium Potassium Chloride Carbon Dioxide Anion Gap BUN Creatinine Estim Creat Clear Calc Est GFR (MDRD) Af Amer Est GFR (MDRD) Non-Af BUN/Creatinine Ratio Glucose Calcium Urine Opiates Screen Urine Methadone Screen Ur Barbiturates Screen Ur Phencyclidine Scrn Ur Amphetamines Screen U Methamphetamin-MDMA U Benzodiazepines Scrn Urine Cocaine Screen U Cannabinoids Screen Ur Drug Screen Comment Ethyl Alcohol 321.0 H* 56.0 EKG Initial EKG: Comments: EKG done as part of medical clearance and read by me shows a normal sinus rhythm with overall rate of 92. There is no ventricular ectopy. No PVCs or PACs. There is no acute ST elevation or depression consistent with infarct or ischemia. NH interval, QRS duration and QTc are all within normal limits. There is no marked change from EKG of 14 November of this year. <Dr. Charles Lugo, DO - Last Filed: 11/20/21 13:42> [facility] Narrative Medical decision making narrative: 21-year-old male with history of anxiety presenting last evening and saw my partner who was intoxicated and expressing ideas of suicidal thoughts. Patient has been monitored until his alcohol is below 100 and he was able to see social work and at this time after talking with his mother there is no history of suicidal ideation or attempts. His mother feels comfortable helping him get outpatient follow-up. Patient is amenable to this and does not admit to any suicidal ideation before and now he is sober and not admitting to any suicidal or homicidal ideation. Social work is comfortable safety planning him for home. Given this patient will be discharged home with his mother. He is counseled return for any new or worsening symptoms. Lab Data Labs: Laboratory Results - last 24 hr 11/20/21 11/20/21 11/20/21 00:13 00:24 00:24 WBC 11.7 H RBC 5.12 Hgb 15.9 Hct 46.8 MCV 91.4 MCH 31.1 MCHC 34.0 RDW Std Deviation 39.9 RDW Coeff of Amalia 11.9 Plt Count 410 MPV 9.2 Immature Gran % (Auto) 0.300 Neut % (Auto) 59.4 Lymph % (Auto) 33.6 [place] % (Auto) 4.8 Eos % (Auto) 1.4 Baso % (Auto) 0.5 Absolute Neuts (auto) 7.0 Absolute Lymphs (auto) 3.94 Nucleated RBC % 0 Sodium 143 Potassium 4.4 Chloride 108 H Carbon Dioxide 29.0 Anion Gap 6 BUN 11 Creatinine 0.74 Estim Creat Clear Calc 151.96 Est GFR (MDRD) Af Amer 171 Est GFR (MDRD) Non-Af 142 BUN/Creatinine Ratio 14.9 Glucose 109 H Calcium 9.1 Urine Opiates Screen NEGATIVE Urine Methadone Screen NEGATIVE Ur Barbiturates Screen NEGATIVE Ur Phencyclidine Scrn NEGATIVE Ur Amphetamines Screen NEGATIVE U Methamphetamin-MDMA NEGATIVE U Benzodiazepines Scrn NEGATIVE Urine Cocaine Screen NEGATIVE U Cannabinoids Screen NEGATIVE Ur Drug Screen Comment Ethyl Alcohol 11/20/21 11/20/21 00:24 11:48 WBC RBC Hgb Hct MCV MCH MCHC RDW Std Deviation RDW Coeff of Amalia Plt Count MPV Immature Gran % (Auto) Neut % (Auto) Lymph % (Auto) [place] % (Auto) Eos % (Auto) Baso % (Auto) Absolute Neuts (auto) Absolute Lymphs (auto) Nucleated RBC % Sodium Potassium Chloride Carbon Dioxide Anion Gap BUN Creatinine Estim Creat Clear Calc Est GFR (MDRD) Af Amer Est GFR (MDRD) Non-Af BUN/Creatinine Ratio Glucose Calcium Urine Opiates Screen Urine Methadone Screen Ur Barbiturates Screen Ur Phencyclidine Scrn Ur Amphetamines Screen U Methamphetamin-MDMA U Benzodiazepines Scrn Urine Cocaine Screen U Cannabinoids Screen Ur Drug Screen Comment Ethyl Alcohol 321.0 H* 56.0 Discharge Plan Triage Chief Complaint: Suicidal ED Provider: Geoff Louis Dx/Rx/DC Orders Clinical Impression: Suicidal ideation, Abrasion of left wrist, initial encounter, Alcohol intoxication Instructions: ED Withdrawal Alcohol, CONTRACT, No Harm Prescriptions: No Action omeprazole 20 mg capsule,delayed release(DR/EC) 20 mg PO DAILY PRN (Reason: Heartburn) RF: 0 sertraline 50 mg tablet 50 mg PO QDAY Qty: 30 RF: 1 acetaminophen [Tylenol] 325 mg Capsule 650 mg PO Q4H PRN (Reason: Chest Pain) RF: 0 Stand Alone Forms: ED Work / School Excuse, Work Status Form Primary Care Provider: Rodrigo Romeo Referrals: Rodrigo Romeo, [Primary Care Provider] - Disposition Disposition: Home, Self Care Discharge Date/Time: 11/20/21 15:03
--- NOTE | 2021-11-20 10:15 | CM.ED ---
SOCIAL WORK Informed by nursing, patient intoxicated upon arrival. Patient presents with suicidal ideation. Frostproof Slip on chart. This worker to evaluate once medically cleared. Michael Kc, TORPEDOMAN'S MATE, WEB DESIGNER
--- NOTE | 2021-11-20 14:40 | CM.ED ---
SOCIAL WORK ASSESSMENT Referral Source: Dr. Lugo Reason for Consult: Suicidal ideation Chief Compliant: Patient presented last evening intoxicated with suicidal ideation. Marital/Social History: Single Living Situation: Home alone in an apartment Support/Resources: Family, friends History: None Education and Employment History: high school grad, employed full-time Mental Health Treatment/History: anxiety for the last 2 months. Started on Zoloft. Triggers/Stressors: stressed over finances due to health issues. Patient reports had COVID-19 in October 2020. Patient has had issues with increased heart rate. Coping Skills: ?talk self down?, watch a show or movie, walk or jog Abuse Issues: Patient denies any history of emotional, physical, or sexual abuse. Substance Abuse History: alcohol. Patient admits to drinking 1-2 beers a night and ?a little more on the weekends.? Patient reports substance abuse in the family. Risk to Self/Others: Suicidal- Patient denies any suicidal ideation, plan, or intent. Homicidal- Patient denies any homicidal ideation. Violence- patient reports cut wrist last night, no prior history of cutting. Mental Status Exam: Orientation- A&OX3 Memory: good Appearance/General Behavior: appropriate, calm Mood/Affect: appropriate Communication Pattern: responds to questions Thought Process: appropriate General Intellectual Functioning: Average Judgement: good Insight: good Assessment: Met with patient and patient?s mother in room. Mother stepped out while this worker completed assessment. Patient admits to social stressors and reports ?I drank more than normal last night.? Patient states does not remember a lot of what was said and done last evening due to intoxication. Patient states ?I blacked out and cut my wrist. I?ve never cut before.? Patient denies any current suicidal ideation, plan, or intent. Patient reports good support from family and friends and feels safe returning home. Patient states has been worried about health due to effects from COVID-19 on his heart. Patient wearing heart monitor. Much emotional support and education provided. Patient open to counseling services and provided with list of providers. Patient gave permission for this worker to speak with mother. Mother escorted back to room and reports ?this is not normal for him.? Mother feels safe with patient returning home and states has good family and friend support. Mother concerned about patient taking Zoloft and believes medication may be increasing patient?s anxiety. Patient reports plan to speak with PCP regarding medication. Collaboration with Dr. Lugo. Patient does not require hospitalization at this time. Safety plan completed with patient and patient?s mother. Resources provided. Follow up phone calls to be completed by ER SW over the next 2 days. Plan: Safety plan completed, home with resources provided JOANN Vaughan, MILLED LUMBER GRADER
--- NOTE | 2021-11-21 17:56 | CM.ED ---
Addendum entered by Kayla Rizo 11/21/21 17:59: Continued He has felt he needed help for awhile but is glad he came in last night for help. Patient was advised that the ED is available 24/06 for any help or assistance and patient verbalized understanding. Patient voiced no issues or concerns. Advised that Jeffry will follow up with him on Saturday and patient appreciative of the support. SW staff available if futher needs arise. Plan: Home with safety plan. Kayla TRAN Original Note: DON Note 5:03 pm SW called patient. He indicated he was doing good but voiced that he was currently at work. SW agreed to call patient back later. 5:50pm SW called patient. He reports he had a good day and indicated that this is the first day in a week that he has been back to work. Patient said that he is currently at [employer] Saturday with her friend/Uncle waiting for your call. Patient said that he is glad he came into the hospitl last night and said that he f
--- NOTE | 2021-11-22 20:17 | CM.ED ---
SOCIAL WORK Follow up call Patient was sent home with safety plan on 11/20/21. Follow up call made by Kayla OCHOA on 11/21/21. Call to patient today for follow up. Patient states is doing very well and plans to call to set up counseling. Patient also reports plan to attend AA meeting due to abuse of alcohol at times. Patient thanking this worker for time in ER and phone call today. Patient encouraged to call the ER with any further needs for assistance. Michael Kc, MANAGER PHP, SOLE LEATHER CUTTING MACHINE OPERATOR
== END 2021-11-20 15:03 | disposition home or self-care (01) ==
PROVIDERS: Student in an Organized Health Care Education/Training Program; Emergency Provider Emergency Medicine; PCP Family Medicine
DX: R45.851 Suicidal ideations (principal); S60.812A Abrasion of left wrist, initial encounter; F10.129 Alcohol abuse with intoxication, unspecified; F17.210 Nicotine dependence, cigarettes, uncomplicated; Q67.6 Pectus excavatum; F41.9 Anxiety disorder, unspecified; X58.XXXA Exposure to other specified factors, initial encounter; Z79.899 Other long term (current) drug therapy
CPT/HCPCS: 36415; 80048; 80307; 82077; 85025; 87426; 93005; 99283; A4216

== ENCOUNTER → 2023-04-11 | Outpatient (CLI) | payer BC, SELFPAY ==
[2023-04-11 14:58] LABS: Absolute Lymphocyte Count 2.55 X10^3/uL (0.83-4.51); Absolute Neutrophil Count 5.2 X10^3/uL (2.0-7.7); Basophil# 0.04 X10^3/uL; Basophil% 0.5 % (0-1); Eosinophils% 1.2 % (0-5); Hematocrit 48.8 % (40-54); Hemoglobin 16.6 g/dL (13.0-16.5); Lymphocyte # 2.55 X10^3/ul (0.83-4.51); Lymphocyte % 30.6 % (19-41); Mean Corpuscular Hgb 31.1 pg (27.0-32.0); Mean Corpuscular Volume 91.4 fL (80-94); Mean Platelet Vol. 8.9 fl (6.2-12.0); Monocyte# 0.43 X10^3/uL; Monocyte% 5.2 % (0-10); NRBC Flagged by Analyzer 0 % (0-5); Neutrophil # 5.17 X10^3/uL (2.7-7.7); Neutrophil % 61.9 % (47-70); Platelet Count 384 K/mm3 (150-450); RBC Distribution Width CV 11.9 % (11.6-14.6); RBC Distribution Width SD 39.9 fl (35.1-43.9); Red Blood Count 5.34 M/mm3 (4.6-6.2); White Blood Count 8.3 K/mm3 (4.4-11.0)
[2023-04-11 16:07] LABS: Anion Gap 5 (5-15); BUN 10 mg/dL (7-18); BUN/Creat Ratio 12.6 RATIO (10-20); Chloride 108 mmol/L (98-107); Creatinine, Serum 0.79 mg/dL (0.70-1.30); EST Glomerular Filtration Rate 129 mL/min (>60); Est Glom Filt Rate - Afr Amer 156 mL/min (>60); Glucose 110 mg/dL (74-106); Magnesium 2.7 mg/dL (1.6-2.6); Potassium 3.8 mmol/L (3.5-5.1); Sodium Level 140 mmol/L (136-145); Thyroid Stim Hormone (TSH) 0.76 uIU/mL (0.358-3.74)
== END | disposition home or self-care (01) ==
LOC: LAB 14:44
PROVIDERS: PCP Family Medicine; Referring Provider Nurse Practitioner Gerontology; Visit Provider Nurse Practitioner Gerontology
DX: R00.2 Palpitations (principal)
CPT/HCPCS: 36415; 80048; 83735; 84439; 84443; 84481; 85025

== ENCOUNTER 2023-04-19 07:44 | Emergency (ER) | payer BC, SELFPAY ==
[2023-04-19 07:45] VITALS: BP 186/101; PULSE 108; RESP 14; TEMP 36.2; O2SAT 100; BMI 20.7
--- NOTE | 2023-04-19 08:07 | EKG12_ITS ---
Test Reason : HIGH HR Blood Pressure : / mmHG Vent. Rate : 080 BPM Atrial Rate : 080 BPM P-R Int : 152 ms QRS Dur : 080 ms QT Int : 344 ms P-R-T Axes : 053 015 053 degrees QTc Int : 396 ms Normal sinus rhythm Normal ECG Confirmed by JASON CODY, PASCUAL ([id number]), associate editor ZARINA MARCUS ([id number]) on 04/22/2023 10:29:24 AM Referred By: ROBERTO Confirmed By:PASCUAL GOMEZ MD
--- NOTE | 2023-04-19 08:09 | EX.ED.DYSGE1 ---
HPI History of Present Illness Chief Complaint: Palpitations Narrative Narrative: 23-year-old male past medical history of previous palpitations and tachycardia, presents with rapid heart rate. He states he sees Dr. Post as his skin tanner and is currently taking metoprolol 25 mg twice a day. He states he did not have problems with palpitations for at least 7 to 8 months, but over the last month he seems to get them every day. He saw the skin tanner this nurse practitioner who is setting him up for a Holter monitor next week. He presents to the emergency department today because of more of a sustained tachycardia. He woke up this morning with a heart rate ranging from 1 60-1 80 and may have felt his heart skipping a beat, but a strong, pounding rapid heart rate. Usually, his symptoms resolve after about 20 minutes, but it started at 630 this morning and was lasting until he got to the emergency department. He denies any nausea or vomiting, no other symptoms. This is similar to his previous tachycardia. It sounds as if he is having paroxysmal supraventricular tachycardia. He does admit to smoking a few cigarettes yesterday, and to drinking alcohol. This seems to be a trigger for him when he has his palpitations. Currently, upon examination he feels improved. [facility] Medical History Allergic rhinitis Anxiety Anxiety about health Chest pain Condyloma acuminata Hearing problem IBS (irritable bowel syndrome) Inguinal lymphadenitis Left ventricular dilatation Non-sustained ventricular tachycardia Palpitations Pectus excavatum Pre-syncope Seasonal allergies Home Medications omeprazole 20 mg capsule,delayed release 20 mg PO DAILY PRN Heartburn 09/20/21 [History Last Taken 11/13/21] acetaminophen 325 mg capsule (Tylenol) 650 mg PO Q4H PRN Chest Pain 11/15/21 [History Last Taken Unknown] metoprolol tartrate 25 mg tablet 12.5 mg PO ONCE PRN palpitstions 02/13/22 [History Last Taken Unknown] multivitamin (Daily Multi-Vitamin tablet) 1 tab PO DAILY 04/11/23 [History Last Taken Unknown] Allergy/AdvReac Type Severity Reaction Status Date / Time cephalexin Allergy Mild Rash-Hives Verified 04/19/23 07:47 Penicillins [PCN] Allergy Rash Verified 04/19/23 07:47 Family History Grandfather Cancer Parkinson disease Thyroid disorder Grandmother Cancer Osteoporosis Father Arthritis Myocardial infarction, Onset Age: 54 Cancer skin Spinal stenosis Heart disease atrial fib Mother Thyroid disorder Other CAD (coronary artery disease) Social History Smoking Status: Current some day smoker tobacco type: cigarettes and e-cigarettes alcohol intake: current alcohol intake frequency: a few times a week substance use type: does not use what type of physical activity do you participate in: walking, running and weight training frequency: 3-4 times per week ROS ROS ED ROS Narrative Constitutional: No fever, no chills. HEENT: No sore throat. No neck pain. No loss of vision. No rhinorrhea. Cardiovascular: Positive chest pain-resolved. Positive palpitations. High heart rate in the 160s to 180s this morning. No pedal edema. Respiratory: No cough, no shortness of breath. Abdominal: No abdominal pain. No nausea. No vomiting. Genitourinary: No dysuria. No hematuria. Musculoskeletal: No myalgias. No arthralgias. Neurologic: No headaches. Positive dizziness and lightheadedness-resolved/improved Skin: No rash. No change in color. Psychiatric: No depression. No anxiety. EXAM Physical Exam Narrative Exam Narrative: Afebrile. Vital signs noted. HEENT: Normocephalic. Atraumatic. PERRL, EOMI. Neck soft and supple. No point tenderness or step off. Cardiovascular: Regular rate and rhythm. No murmurs, rubs, or gallops appreciated. Respiratory: No tachypnea. Lungs clear to auscultation bilaterally. Gastrointestinal: Abdomen soft, nontender, with normoactive bowel sounds. No rebound or guarding. Neurological: Awake. Alert. Nonfocal, nonlateralizing. Skin: No rash. Normal color. No pallor. Musculoskeletal: No pedal edema. Full range of motion extremities. Const Vital Signs: 04/19/23 07:45 04/19/23 07:51 04/19/23 08:19 Temperature 97.2 F L Temperature Source Temporal Pulse Rate 108 H Respiratory Rate 14 Respiratory Effort Normal Non-Labored Blood Pressure 186/101 H Blood Pressure Mean 129 Pulse Ox 100 Oxygen Delivery Method Room Air Room Air 04/19/23 08:21 Temperature Temperature Source Pulse Rate 79 Respiratory Rate 18 Respiratory Effort Blood Pressure 135/67 H Blood Pressure Mean 89 Pulse Ox 98 Oxygen Delivery Method Room Air MDM MDM MDM Narrative Medical decision making narrative: I reviewed the patient's prior out patient cardiology records and notes. It was reported that he did have a 12 beat run of wide-complex tachycardia that was asymptomatic. He has had echocardiograms in the past with an EF of 60%. He has had narrow complex tachycardia as well. My suspicion is more that he may be having dysrhythmias such as PACs versus PVCs versus bouts of his sustained paroxysmal supraventricular tachycardia. I will check his laboratory work to look for dehydration or anemia. EKG was obtained and interpreted by myself independently which demonstrates normal sinus rhythm at 80 bpm without ectopy or acute ST changes. No STEMI. I feel cardiac ischemia/STEMI has been ruled out with this EKG. I will obtain a troponin just to see if there has been a troponin leak with his reported SVT. As he was having chest pain also I will obtain a chest x-ray, but I have low suspicion for pulmonary embolism as his pulse ox is 100% on room air, and his symptoms have essentially resolved. Chest x-ray interpreted by myself independently shows no evidence of an acute process, no pneumonia or pneumothorax. I reviewed the radiology report which confirms my independent interpretation. I reviewed his laboratory work and he has a normal white count of 8.0, hemoglobin normal at 16.1, platelet count normal at 331. CMP is grossly unremarkable with a normal sodium of 140 and a normal potassium of 3.5, magnesium also normal at 2.0. High-sensitivity troponin is 3. I do not feel that serial enzymes are indicated as he is not having chest pain so I do not feel he needs to be a chest pain rule out. At this point in time, upon repeat examination at approximately 9:15 AM, his heart rate is in the 70s and his blood pressure has come down to 135/67. I do feel that there may be some anxiety component paired with his paroxysmal supraventricular tachycardia. I discussed the patient with Dr. Antonio with cardiology who agrees with increasing the dosing of his metoprolol to tartrate to 50 mg twice a day. He was told that should he have severe bradycardia or low blood pressure with this, that he should back off the dosing. Otherwise he will follow-up with cardiology as scheduled for his Holter monitor. I feel he can be discharged safely home with follow-up. Return instructions to the emergency department were reviewed. Disposition is discharged home in stable condition. Lab Data Attestation: I reviewed the patient's lab results. Labs: Laboratory Results - last 24 hr 04/19/23 04/19/23 08:01 08:01 WBC 8.0 RBC 5.21 Hgb 16.1 Hct 48.5 MCV 93.1 MCH 30.9 MCHC 33.2 RDW Std Deviation 41.5 RDW Coeff of Amalia 12.0 Plt Count 331 MPV 9.1 Immature Gran % (Auto) 0.100 Neut % (Auto) 61.3 Lymph % (Auto) 30.9 [place] % (Auto) 5.7 Eos % (Auto) 1.4 Baso % (Auto) 0.6 Absolute Neuts (auto) 4.9 Absolute Lymphs (auto) 2.46 Nucleated RBC % 0 Sodium 140 Potassium 3.5 Chloride 106 Carbon Dioxide 27.0 Anion Gap 7 BUN 11 Creatinine 0.81 Estim Creat Clear Calc 154.70 Est GFR (MDRD) Af Amer 152 Est GFR (MDRD) Non-Af 126 BUN/Creatinine Ratio 13.6 Glucose 108 H Calcium 8.7 Magnesium 2.0 Total Bilirubin 0.60 AST 27 ALT 34 Alkaline Phosphatase 69 Troponin I High Sens 3 Total Protein 7.6 Albumin 4.0 Globulin 3.6 Albumin/Globulin Ratio 1.1 Radiography Diagnostic Testing: Clinical Impression(s) from Imaging Studies Chest X-Ray 04/19/23 08:33 IMPRESSION: No acute abnormality is seen. Electronically Signed: Baldo Fowler MD at 8:59 EDT , Discharge Plan Triage Chief Complaint: Palpitations ED Provider: Joey Sultana Dx/Rx/DC Orders Clinical Impression: Paroxysmal supraventricular tachycardia, Palpitations Instructions: ED Understanding Supraventricular Tachycardia (SVT), ED Palpitations Prescriptions: No Action omeprazole 20 mg capsule,delayed release(DR/EC) 20 mg PO DAILY PRN (Reason: Heartburn) metoprolol tartrate 25 mg tablet 12.5 mg PO ONCE PRN (Reason: palpitstions) multivitamin [Daily Multi-Vitamin] Tablet 1 tab PO DAILY acetaminophen [Tylenol] 325 mg Capsule 650 mg PO Q4H PRN (Reason: Chest Pain) Stand Alone Forms: ED Work / School Excuse Primary Care Provider: Rodrigo Romeo Referrals: Rodrigo Romeo, DO [Primary Care Provider] - Activity Restrictions/Additional Instructions: Increase your metoprolol to tartrate to 50 mg twice a day (2 tablets of the 25 mg by mouth twice a day). Follow-up with cardiology for your Holter monitor as scheduled. Disposition Disposition: Home, Self Care
[2023-04-19 08:19] LABS: Absolute Lymphocyte Count 2.46 X10^3/uL (0.83-4.51); Absolute Neutrophil Count 4.9 X10^3/uL (2.0-7.7); Basophil# 0.05 X10^3/uL; Basophil% 0.6 % (0-1); Eosinophil# 0.11 X10^3/uL; Eosinophils% 1.4 % (0-5); Hematocrit 48.5 % (40-54); Hemoglobin 16.1 g/dL (13.0-16.5); Lymphocyte # 2.46 X10^3/ul (0.83-4.51); Lymphocyte % 30.9 % (19-41); Mean Corp Hgb Conc 33.2 g/dL (32-36); Mean Corpuscular Hgb 30.9 pg (27.0-32.0); Mean Corpuscular Volume 93.1 fL (80-94); Mean Platelet Vol. 9.1 fl (6.2-12.0); Monocyte# 0.45 X10^3/uL; Monocyte% 5.7 % (0-10); NRBC Flagged by Analyzer 0 % (0-5); Neutrophil # 4.87 X10^3/uL (2.7-7.7); Neutrophil % 61.3 % (47-70); Platelet Count 331 K/mm3 (150-450); RBC Distribution Width SD 41.5 fl (35.1-43.9); Red Blood Count 5.21 M/mm3 (4.6-6.2)
[2023-04-19 08:21] VITALS: BP 135/67; PULSE 79; RESP 18; O2SAT 98
[2023-04-19] MEDS: 0.9% Normal Saline 1,000 ML 1000 ML IV (08:25)
--- NOTE | 2023-04-19 08:33 | RAD_ITS ---
STUDY: X-RAY CHEST REASON FOR EXAM: Male, 23 years old. Chest pain TECHNIQUE: Single AP portable view of the chest. COMPARISON: Comparison is made with prior study dated November 14, 2021. FINDINGS: EKG electrodes are seen. Hyperinflation. The lungs are clear. There is no demonstrated pleural abnormality. Normal size heart. Normal mediastinum and laura. Normal visualized pulmonary arteries. Normal visualized aortic arch and descending thoracic aorta. Normal visualized thoracic spine. Normal visualized ribs, clavicles, and shoulders. There is no demonstrated abnormality of the visualized soft tissue structures of the upper abdomen. RAD/Chest 1 View (Portable) IMPRESSION: No acute abnormality is seen. Electronically Signed: Baldo Fowler MD at 8:59 EDT ,
[2023-04-19 08:43] LABS: ALB/GLOB Ratio 1.1 RATIO (0.9-2.4); AST(SGOT) 27 U/L (15-37); Alanine Aminotransfer ALT/SGPT 34 U/L (16-61); Alkaline Phosphatase 69 U/L (45-117); Anion Gap 7 (5-15); BUN 11 mg/dL (7-18); BUN/Creat Ratio 13.6 RATIO (10-20); Calcium,Total 8.7 mg/dL (8.5-10.1); Chloride 106 mmol/L (98-107); Creatinine, Serum 0.81 mg/dL (0.70-1.30); EST Glomerular Filtration Rate 126 mL/min (>60); Est Glom Filt Rate - Afr Amer 152 mL/min (>60); Globulin 3.6 g/dL (2.2-4.2); Glucose 108 mg/dL (74-106); Potassium 3.5 mmol/L (3.5-5.1); Protein, Total 7.6 g/dL (6.4-8.2); Sodium Level 140 mmol/L (136-145); Troponin-I HS 3 pg/mL (3.0-78.0)
[2023-04-19 09:18] VITALS: BP 135/95; PULSE 73; RESP 20; O2SAT 98
[2023-04-19 09:29] VITALS: PULSE 76; RESP 18; O2SAT 100
== END 2023-04-19 09:29 | disposition home or self-care (01) ==
PROVIDERS: Emergency Provider Emergency Medicine; PCP Family Medicine; Visit Provider Emergency Medicine
DX: R00.2 Palpitations (principal); I47.1 Supraventricular tachycardia; F17.210 Nicotine dependence, cigarettes, uncomplicated; Z79.899 Other long term (current) drug therapy; F17.290 Nicotine dependence, other tobacco product, uncomplicated
CPT/HCPCS: 71045; 80053; 83735; 84484; 85025; 93005; 96360; 99284; J7030; A4216

== ENCOUNTER → 2023-05-06 | Outpatient (CLI) | payer BC, SELFPAY | END | disposition home or self-care (01) | PROVIDERS: PCP Family Medicine; Referring Provider Nurse Practitioner Gerontology; Visit Provider Nurse Practitioner Gerontology | DX: R00.2 Palpitations (principal) | CPT/HCPCS: 93225; 93226 ==

== ENCOUNTER 2023-07-21 22:03 | Emergency (ER) | payer BC, SELFPAY ==
[2023-07-21 22:04] VITALS: BP 145/90; PULSE 98; RESP 16; TEMP 36.4; O2SAT 100; BMI 21.0
--- NOTE | 2023-07-21 22:41 | EX.ED.GENINJ ---
HPI History of Present Illness Chief Complaint: Laceration Narrative Narrative: Patient sustained a cut to the right index finger distally while cutting tomatoes. No other injuries tetanus is not up-to-date [facility] Medical History Allergic rhinitis Anxiety Anxiety about health Chest pain Condyloma acuminata Hearing problem IBS (irritable bowel syndrome) Inguinal lymphadenitis Left ventricular dilatation Non-sustained ventricular tachycardia Palpitations Pectus excavatum Pre-syncope Seasonal allergies Home Medications omeprazole 20 mg capsule,delayed release 20 mg PO DAILY PRN Heartburn 09/20/21 [History Last Taken 11/13/21] multivitamin (Daily Multi-Vitamin tablet) 1 tab PO DAILY 04/11/23 [History Last Taken Unknown] Allergy/AdvReac Type Severity Reaction Status Date / Time cephalexin Allergy Mild Rash-Hives Verified 07/21/23 22:06 Penicillins [PCN] Allergy Rash Verified 07/21/23 22:06 Family History Grandfather Cancer Parkinson disease Thyroid disorder Grandmother Cancer Osteoporosis Father Arthritis Myocardial infarction, Onset Age: 54 Cancer skin Spinal stenosis Heart disease atrial fib Mother Thyroid disorder Other CAD (coronary artery disease) Social History Smoking Status: Current some day smoker tobacco type: cigarettes and e-cigarettes alcohol intake: current alcohol intake frequency: a few times a week substance use type: does not use what type of physical activity do you participate in: walking, running and weight training frequency: 3-4 times per week ROS ROS ED ROS Narrative Past medical history: none Medications: Reviewed Social history: Noncontributory Review of systems: Musculoskeletal: Lacerations in HPI Skin: As above Neurological: No weakness or paresthesias Hematologic: No easy bleeding or easy bruising EXAM Physical Exam Narrative Exam Narrative: Physical exam General: Patient does not appear in significant distress . Head: Normocephalic, Atraumatic Neck: No C-spine tenderness Cardiovascular: Normal distal pulses Back: Nontender, Normal Inspection. Extremities: 2 cm laceration over the pulp of the index finger of the right hand it is horizontal. No tendon involvement. Skin: No abrasions, no lacerations Neurological: Normal strength and sensation Const Vital Signs: 07/21/23 22:04 Temperature 97.6 F L Temperature Source Temporal Pulse Rate 98 Respiratory Rate 16 Blood Pressure 145/90 H Blood Pressure Mean 108 Pulse Ox 100 Oxygen Delivery Method Room Air PROC Procedures Lacerations Finger laceration: Length: 0.79 in Depth: Sub Q Shape: Linear Prep: Shure-Clens Laceration repair: Lidocaine and Local Number of Sutures/[place]: 3 Suture Information: Ethilon and 4-0 Comment: Patient tolerated procedure MDM MDM MDM Narrative Medical decision making narrative: Patient sustained a laceration, at this time there is no need for an x-ray. Tetanus was updated. Laceration was sutured. Patient be discharged with wound care instructions. Discharge Plan Triage Chief Complaint: Laceration ED Provider: Grady Grigsby Dx/Rx/DC Orders Clinical Impression: Tetanus-diphtheria (Td) vaccination, Finger laceration Instructions: ED Laceration, Hand: All Closures Prescriptions: No Action omeprazole 20 mg capsule,delayed release(DR/EC) 20 mg PO DAILY PRN (Reason: Heartburn) multivitamin [Daily Multi-Vitamin] Tablet 1 tab PO DAILY Stand Alone Forms: ED Work / School Excuse Primary Care Provider: Rodrigo Romeo Referrals: Rodrigo Romeo, [Primary Care Provider] - 10 Day for suture removal Activity Restrictions/Additional Instructions: Stitches to be removed in 10 days
[2023-07-21] MEDS: Diphth,Pertuss(Acell),Tet Vac 0.5 ML Vial IM (23:10)
[2023-07-21] MEDS: Lidocaine 1% (20 ml mdv) 20 ML Vial INFILT (23:12)
== END 2023-07-21 23:24 | disposition home or self-care (01) ==
PROVIDERS: Emergency Provider Emergency Medicine; PCP Family Medicine; Visit Provider Emergency Medicine
DX: S61.210A Laceration without foreign body of right index finger without damage to nail, initial encounter (principal); F17.210 Nicotine dependence, cigarettes, uncomplicated; Z23 Encounter for immunization; X58.XXXA Exposure to other specified factors, initial encounter
CPT/HCPCS: 12001; 90715; 99284

== ENCOUNTER 2024-01-29 07:39 | Emergency (ER) | payer BC, SELFPAY ==
[2024-01-29 07:39] VITALS: BP 160/105; PULSE 79; RESP 16; TEMP 36.2; O2SAT 100; BMI 21.8
--- NOTE | 2024-01-29 08:02 | ED.VIS.GI ---
HPI HPI - GI History of Present Illness Chief Complaint: Abd Pain Informant: patient Abdominal Pain/Flank Pain Onset: Today Context: Sudden Onset Timing: Intermittent Quality: Dull Location: RUQ Worsened by: Nothing Relieved by: Nothing Nausea/Vomiting/Emesis GI Symptom: Negative for Nausea or Vomiting Diarrhea/Melena/Hematochezia GI Symptom: Positive for Diarrhea and Hematochezia Onset: Today Associated Symptoms Associated Symptoms: Positive for Dysuria; Negative for Frequency or Hematuria Narrative Narrative: Patient presents with abdominal pain and rectal bleeding that began this morning. Patient states his pain is intermittent. Patient states his pain is mainly over the right upper abdomen. Patient describes the pain as dull. Patient states nothing makes it better nothing makes it worse. Patient states he noted some blood in his stool and on the toilet paper when he wiped. Patient states he has had a history of colon polyps in the past. Patient admits to some dysuria. Patient denies any fevers or chills. Patient denies any nausea or vomiting. PFSH PFS Medical History Allergic rhinitis Anxiety Anxiety about health Chest pain Condyloma acuminata Hearing problem History of suicidal ideation IBS (irritable bowel syndrome) Inguinal lymphadenitis Left ventricular dilatation Non-sustained ventricular tachycardia Palpitations Pectus excavatum Pre-syncope Seasonal allergies Home Medications multivitamin (Daily Multi-Vitamin tablet) 1 tab PO DAILY 04/11/23 [History Last Taken Unknown] venlafaxine 75 mg capsule,extended release 24 hr (Effexor XR) 75 mg PO DAILY #90 caps 10/09/23 [Rx Last Taken Unknown] metoprolol succinate 50 mg tablet,extended release 24 hr 50 mg PO DAILY #30 tabs 10/29/23 [Rx Last Taken Unknown] ciprofloxacin HCl 500 mg tablet 500 mg PO BID #20 TABLETS 01/29/24 [Rx Last Taken Unknown] metronidazole 500 mg tablet 500 mg PO Q6H #40 tabs 01/29/24 [Rx Last Taken Unknown] Allergy/AdvReac Type Severity Reaction Status Date / Time cephalexin Allergy Mild Rash-Hives Verified 01/28/24 09:28 Penicillins [PCN] Allergy Rash Verified 01/28/24 09:28 sertraline [From Zoloft] AdvReac Severe Other Verified 02/27/24 09:28 Family History Grandfather Cancer Parkinson disease Thyroid disorder Grandmother Cancer Osteoporosis Father Arthritis Myocardial infarction, Onset Age: 54 Cancer skin Spinal stenosis Heart disease atrial fib Mother Thyroid disorder Other CAD (coronary artery disease) Social History Smoking Status: Current some day smoker tobacco type: e-cigarettes alcohol intake: current alcohol intake frequency: a few times a week Alcohol type: beer substance use type: does not use what type of physical activity do you participate in: walking and running frequency: 3-4 times per week seatbelt use: always do you feel safe at home: Yes ROS ROS ED Constitutional Constitutional ED: Denies chills or fever(s) Eyes Eyes: Denies blurry vision or change in vision ENT ENT ED: Denies rhinorrhea or sore throat Cardiovascular Cardiovascular: Denies chest pain or palpitations Respiratory/Chest Respiratory/Chest: Denies cough or dyspnea Gastrointestinal Gastrointestinal: Reports abdominal pain and diarrhea; Denies nausea or vomiting Genitourinary Genitourinary ED: Reports dysuria; Denies hematuria Musculoskeletal Musculoskeletal: Denies back pain or neck pain Integumentary Denies abscess or rash Neurologic Neurologic: Denies headache(s) or weakness Allergic/Immunologic Allergic/Immunologic ED: Denies mouth swelling or urticaria EXAM Physical Exam Const Vital Signs: 01/29/24 07:39 Temperature 97.2 F L Temperature Source Temporal Pulse Rate 79 Respiratory Rate 16 Blood Pressure 160/105 H Blood Pressure Mean 123 Pulse Ox 100 Oxygen Delivery Method Room Air Positive well nourished and well developed General Appearance ED: well developed and NAD HEENT Reports moist mucous membranes Neck supple and no JVD Resp normal respiratory effort and clear to auscultation bilaterally Cardio regular rate and regular rhythm GI non-distended Palpation: soft and tender RUQ (Mild); Negative for guarding or rebound tenderness present Neuro CN's II-XII intact bilaterally, moves all extremities, no sensory deficits noted and gait normal Sensorium / Orientation: alert Motor Exam: strength 5/5 throughout Psych mental status grossly normal MDM MDM MDM Narrative Medical decision making narrative: Differential diagnosis includes gastritis, lower gastrointestinal bleeding, diverticulitis, colitis, urinary tract infection, pancreatitis, and viral illness. CBC will be obtained to assess for leukocytosis and anemia. Comprehensive metabolic profile will be obtained to assess for hepatic function, renal function, and electrolyte abnormality. Lipase will be obtained to assess for pancreatitis. Stool will be sent for occult blood to assess for lower gastrointestinal bleeding. Urinalysis will be obtained to assess for urinary tract infection. Lab Data Attestation: I reviewed the patient's lab results. Lab results narrative: CBC was reviewed and was within normal limits. Comprehensive metabolic profile was reviewed and was within normal limits. Lipase was reviewed and was normal. Urinalysis was reviewed. There is no evidence of urinary tract infection or hematuria. Stool for occult blood was reviewed and was positive. Labs: Laboratory Results - last 24 hr 01/29/24 01/29/24 01/29/24 07:50 08:36 09:01 WBC 6.3 RBC 5.13 Hgb 16.3 Hct 47.9 MCV 93.4 MCH 31.8 MCHC 34.0 RDW Std Deviation 39.6 RDW Coeff of Amalia 11.5 L Plt Count 354 MPV 9.3 Immature Gran % (Auto) 0.300 Neut % (Auto) 48.6 Lymph % (Auto) 41.9 [place] % (Auto) 6.7 Eos % (Auto) 1.9 Baso % (Auto) 0.6 Absolute Neuts (auto) 3.0 Absolute Lymphs (auto) 2.62 Nucleated RBC % 0 Sodium Cancelled 141 Potassium Cancelled 3.8 Chloride Cancelled 107 Carbon Dioxide Cancelled 32.0 Anion Gap Cancelled 2 L BUN Cancelled 10 Creatinine Cancelled 0.78 Estim Creat Clear Calc Cancelled 169.34 Est GFR (MDRD) Af Amer Cancelled 156 Est GFR (MDRD) Non-Af Cancelled 129 BUN/Creatinine Ratio Cancelled 12.7 Glucose Cancelled 97 Calcium Cancelled 8.7 Total Bilirubin Cancelled 0.70 AST Cancelled 33 ALT Cancelled 48 Alkaline Phosphatase Cancelled 61 Total Protein Cancelled 7.7 Albumin Cancelled 4.0 Globulin Cancelled 3.7 Albumin/Globulin Ratio Cancelled 1.1 Lipase Cancelled 24 Urine Color Yellow Urine Clarity Sl. Cloudy Urine pH 8.0 Ur Specific [place] 1.015 Urine Protein 15 H Urine Glucose (UA) Normal Urine Ketones Negative Urine Occult Blood Negative Urine Nitrite Negative Urine Bilirubin Negative Urine Urobilinogen Normal Ur Leukocyte Esterase 25 H Urine RBC 0 SEEN Urine WBC 0-5 SEEN Ur Squamous Epith Cells 0-5 SEEN Urine Bacteria RARE Urine Mucus RARE Radiography Diagnostic Testing: Clinical Impression(s) from Imaging Studies Abdomen/Pelvis CT 01/29/24 08:16 IMPRESSION: 1. Mild edema and thickening of the inner mucosa of the wall of the proximal transverse colon in the right subhepatic space is consistent with nonspecified colitis. No colonic masses or diverticula are present. There is no demonstrated free air or abscess. The remaining colonic loops are normal. Electronically Signed: Konrad Larry MD at 10:36 EST , CT scan of the abdomen and pelvis was obtained. There is mild edema and thickening of the inner mucosa of the wall of the proximal transverse colon in the right subhepatic space consistent with colitis. There is no free air or abscess noted. There is no other acute abnormality noted. This was interpreted by the radiologist and was also independently reviewed by myself. Treatment and Re-Evaluation :: Patient was given IV fluids. Patient is feeling somewhat better on reevaluation. Patient was advised of his findings. Patient was given prescriptions for Cipro and Flagyl. Patient was instructed to avoid drinking alcohol while taking Flagyl. Patient was instructed to follow-up with his primary care physician in 5 to 7 days for reevaluation. Patient understood and was agreeable with the plan. All questions were answered. Discharge Plan Triage Chief Complaint: Abd Pain ED Provider: Kwesi Villarreal Dx/Rx/DC Orders Clinical Impression: Colitis, Gastrointestinal bleeding, lower Instructions: ED Understanding Colitis Prescriptions: New metronidazole [metronidazole] 500 mg tablet 500 mg PO Q6H Qty: 40 0RF ciprofloxacin HCl [ciprofloxacin HCl] 500 mg tablet 500 mg PO BID Qty: 20 0RF No Action multivitamin [Daily Multi-Vitamin] Tablet 1 tab PO DAILY venlafaxine [Effexor XR] 75 mg capsule,extended release 24hr 75 mg PO DAILY Qty: 90 1RF metoprolol succinate 50 mg tablet extended release 24 hr 50 mg PO DAILY Qty: 30 11RF Stand Alone Forms: ED Work / School Excuse Primary Care Provider: Rodrigo Romeo Referrals: Rodrigo Romeo, DO [Primary Care Provider] - 5-7 Days Disposition Disposition: Home, Self Care
--- NOTE | 2024-01-29 08:16 | CT_ITS ---
STUDY: CT ABDOMEN AND PELVIS WITH CONTRAST REASON FOR EXAM: Male, 23 years old. Right upper quadrant pain, blood in stool. RADIATION DOSAGE (If Supplied By Facility): CTDIvol = ( 10.61 ) mGy, DLP = ( 576.37 ) mGycm TECHNIQUE: Transaxial images were obtained from the dome of the diaphragm to the symphysis pubis with oral contrast. ml of Gastrografin and amp; 100mL Isovue-300 contrast was administered. Sagittal and coronal images were reconstructed. Individualized dose optimization techniques were used for this CT. COMPARISON: None. FINDINGS: The visualized lung bases are unremarkable. The visualized portions of the heart are within normal limits. Normal liver. Normal gallbladder and extrahepatic biliary system. No radiopaque gallstones are seen. No visualized pericholecystic fluid or inflammatory stranding. Normal spleen. Normal pancreas. Normal bilateral adrenal glands. Normal right kidney. Normal left kidney. No hydronephrosis or large radiopaque kidney stones are present. Normal visualized stomach. Normal small intestine. Mild edema and thickening of the inner mucosa of the wall of the proximal transverse colon in the right subhepatic space is consistent with nonspecified colitis. No colonic masses or diverticula are present. There is no demonstrated free air or abscess. The remaining colonic loops are normal. The appendix is visualized and appears normal. Normal abdominal aorta. Normal inferior vena cava. Normal retroperitoneum. Normal urinary bladder. Normal abdominal wall. Normal osseous structures. CT/Abdomen/Pelvis WITH Contrast IMPRESSION: 1. Mild edema and thickening of the inner mucosa of the wall of the proximal transverse colon in the right subhepatic space is consistent with nonspecified colitis. No colonic masses or diverticula are present. There is no demonstrated free air or abscess. The remaining colonic loops are normal. Electronically Signed: Konrad Larry MD at 10:36 EST ,
[2024-01-29 08:29] LABS: Absolute Lymphocyte Count 2.62 X10^3/uL (0.83-4.51); Basophil# 0.04 X10^3/uL; Basophil% 0.6 % (0-1); Eosinophil# 0.12 X10^3/uL; Eosinophils% 1.9 % (0-5); Hematocrit 47.9 % (40-54); Hemoglobin 16.3 g/dL (13.0-16.5); Lymphocyte # 2.62 X10^3/ul (0.83-4.51); Lymphocyte % 41.9 % (19-41); Mean Corpuscular Hgb 31.8 pg (27.0-32.0); Mean Corpuscular Volume 93.4 fL (80-94); Mean Platelet Vol. 9.3 fl (6.2-12.0); Monocyte# 0.42 X10^3/uL; Monocyte% 6.7 % (0-10); NRBC Flagged by Analyzer 0 % (0-5); Neutrophil # 3.03 X10^3/uL (2.7-7.7); Neutrophil % 48.6 % (47-70); Platelet Count 354 K/mm3 (150-450); RBC Distribution Width CV 11.5 % (11.6-14.6); RBC Distribution Width SD 39.6 fl (35.1-43.9); Red Blood Count 5.13 M/mm3 (4.6-6.2); White Blood Count 6.3 K/mm3 (4.4-11.0)
[2024-01-29] MEDS: 0.9% Normal Saline (1000mL) 1,000 ML 1000 ML IV (08:34)
[2024-01-29 08:40] LABS: Red Blood Cells-Urine 0 SEEN /hpf (0-5)
--- OUTSIDE RECORDS SUMMARY | 2024-01-29 08:49 | XMS RPT_ITS | CCD ---
Author Name Unknown Address [address] [place] [address] Organization [facility] Care Team Providers Care Snake Charmer Name Role Phone Unavailable Primary Care Provider MICHAEL Gonzalez Primary Care Unavailable Allergies Allergy Classification Reported Allergen(s) Allergy Type Date of Onset Reaction(s) Facility (1 source) Cephalexin; Translations: [CEPHALEXIN] Drug Allergy 06-01-2021 [facility] Other [facility] Medications Current Medications Medication Drug Class(es) Dates Sig (Normalized) Sig (Original) sodium chloride flush 0.9 % injection 3 mL (1 source) Start: 11-13-2021 sodium chloride flush 0.9 % injection 3 mL Problems Problem Classification Problem Date Documented Da te Episodic/Chronic Cardiac dysrhythmias (1 source) Palpitations; Translations: [Palpitations] Episodic Results Test Name Value Interpretation Reference Range Facil ity Vital Signs Date Time Vital Sign Value Performing Clinician Faci lity 11-13-2021 12:31-0500 Diastolic blood pressure 94 mm[Hg] Rivera Adames i, MD Work Phone: [facility] 11-13-2021 12:31-0500 Heart rate 78 /min Rivera Washington MD Work Phone: [facility] 11-13-2021 12:31-0500 Respiratory rate 16 /min Rivera Washington MD Work Phone: [facility] 11-13-2021 12:31-0500 SaO2% (BldA) [Mass fraction] 100 % Rivera Washington MD Work Phone: [facility] 11-13-2021 12:31-0500 Systolic blood pressure 135 mm[Hg] Rivera Washington MD Work Phone: [facility] 11-13-2021 12:06-0500 Body temperature 99.39 [degF] Rivera Washington MD Work Phone: [facility] 11-13-2021 12:06-0500 Body weight 74.84 kg Rivera Washington MD Work Phone: [facility] Encounters Encounter Date Encounter Type Care Provider Facility Start: 08-25-2023 Emergency department patient visit MICHAEL SPENCER Facility:[facility] Start: 11-13-2021 End: 11-13-2021 Emergency department patient visit Rivera Washington MD Work Phone: [facility] ED Procedures Date Procedure Procedure Detail Performing Clinician Start: 11-15-2021 Antibody screen Plan of Treatment Date Care Activity Detail Author Start: 08-02-2021 Influenza vaccination Flu vaccine (# 1) [facility] Start: 2012 COVID-19 Vaccine (1) COVID-19 Vaccin e (1) [facility] EKG 12 Lead - Chest Pain EKG 12 Lead - Chest Pain ECG STAT 11/13/2021 12:04 PM EST [facility] Work Phone: Payers Date Payer Category Payer Unknown [id number] Social History Date Type Detail Facility Start: 11-13-2021 Tobacco smoking stat [facility] Light tobacco smoker [facility] Work Phone: Start: 11-13-2021 Tobacco use and exposure Smokeless tobacco non-user [facility] Work Phone: Start: 11-13-2021 Alcohol intake Current drinke r of alcohol (finding) [facility] Work Phone: Start: 11-13-2021 History SDOH Alcohol Comment daily [facility] Work Phone: Start: 2000 Sex Assigned At Not on file S [facility] Work Phone: Exposure to SARS-CoV -2 (event) Not sure [facility] Work Phone: Progress note 10-14-2023 Note Date & Type Note Facility 09-14-2023 Note HNO ID: [id number] Author: Note, Interface Service: ? Author Type: ? Type: Progress Notes Filed: 09/14/2023 5:10 AM Note Text: Epic Scheduled Downtime: 09/14/2023 1:00:00 AM to 09/14/2023 1:28:00 AM [facility] Clinical Note 11-16-2021 Note Date & Type Note Facility 11-16-2021 Note HNO ID: [id number] Author: Shelley Ashby RN Service: Care Management Author Type: Registered Nurse Type: Care Mgt Initial Assessment Filed: 11/16/2021 8:27 AM Note Text: CARE MANAGEMENT PROGRESS NOTE SERVICE DATE: 11/16/2021 SERVICE TIME: 8:26 AM LOS: 1 day [place] of Choice Given: No Reason Not Given: No placements necessary Needs Prior to Discharge: Other: See Comment (Medical clearance) 21 year old male admitted for palpitations. Chart reviewed. Functionally independent. No skilled needs. This patient has been screened for Care Management Transitional Planning Services. At this time, it does not appear this patient will require transition planning services. Should this change, and the patient require transition planning services during this admission, please contact Case Management. SIGNATURE: Shelley Ashby RN PATIENT NAME: Peng Cunningham DATE: November 16, 2021 TIME: 8:26 AM PAGER/CONTACT #: [phone] [facility] Evaluation note Note Date & Type Note Facility documented in this encounter [facility] Work Phone: Hospital Discharge instructions InstructionsAttachments Note Date & Type Note Facility Hospital Discharge instructions Rivera Washington MD - 11/13/2021 Call your doctor about adjusting medications; Return for shortness of breath The following attachments cannot be sent through Care Everywhere.Palpitations (Lithuanian)documented in this encounter [facility] Work Phone: Summary Purpose Family History No Family History Records FoundNo Family History Records FoundNo Family History Records Found Advance Directives No Advanced Directives Records FoundNo Advanced Directives Records FoundNo Advanced Directives Records Found Additional Source Comments Reason for Visit (unrecogniz ed section and content) Scheduled Active and Recently Administ ered Medications (unrecognized section and content) Linked Groups Order Group 1: Saline lock IV (COMPLETED) Routine, CONTINUOUS, Starting on Sat11/13/21 at 1215, Until Specified And sodium chloride flush 0.9 % injection 3 mLJump to med 3 mL, IntraVENous, EVERY 8 HOURS, First dose on Sat11/13/21 at 1208
Flush line with 3-5 mL
(unrecognized sect ion and content) No Status Records FoundNo Status Records FoundNo Status Records Found INFORMATION SOURCE (unrecogn ized section and content) DATE CREATED AUTHOR AUTHOR'S ORGANIZ ATION 02/22/2022 [facility] DATE CREATED AUTHOR AUTHOR'S ORGANIZ ATION 09/15/2023 [facility] FOR RECORDS PERTAINING TO PATIENTS WHO ARE OR HAVE BEEN ENROLLED IN A CHEMICAL DEPENDENCY/SUBSTANCEABUSE PROGRAM, SOME INFORMATION MAY BE OMITTED. This clinical summary was aggregated from multiple sources. Caution should be exercised in using it in the provision of clinical care. This summary normalizes information from multiple sources, and as a consequence, information in this document may materially change the coding, format and clinical context of patient data. In addition, data may be omitted in some cases. CLINICAL DECISIONS SHOULD BE BASED ON THE PRIMARY CLINICAL RECORDS. [employer] provides no warranty or guarantee of the accuracy or completeness of information in this document.
[2024-01-29 08:51] LABS: Color, Urine Yellow (Yellow); Glucose, Dipstick Normal (Normal); Ketone-Dipstick Negative (Negative); Leukocyte Esterase-Dipstick 25 /ul (Negative); Nitrite-Dipstick Negative (Negative); Occult Blood-Urine Negative /ul (Negative); Protein-Dipstick 15 mg/dl (Negative); Specific Gravity, Urine 1.015 (1.002-1.030); Urine Bilirubin Dipstick Negative (Negative); Urine Clarity Sl. Cloudy (Clear); Urine Urobilinogen Normal (Normal)
[2024-01-29 09:02] LABS: Bacteria RARE /hpf (None Seen); Mucous, Urine RARE /hpf (<or=2+); Squamous Epithelial Cells - UA 0-5 SEEN /hpf (0-5); White Blood Cells 0-5 SEEN /hpf (0-5)
[2024-01-29 09:31] LABS: ALB/GLOB Ratio 1.1 RATIO (0.9-2.4); AST(SGOT) 33 U/L (15-37); Alanine Aminotransfer ALT/SGPT 48 U/L (16-61); Alkaline Phosphatase 61 U/L (45-117); Anion Gap 2 (5-15); BUN 10 mg/dL (7-18); BUN/Creat Ratio 12.7 RATIO (10-20); Calcium,Total 8.7 mg/dL (8.5-10.1); Chloride 107 mmol/L (98-107); Creatinine, Serum 0.78 mg/dL (0.70-1.30); EST Glomerular Filtration Rate 129 mL/min (>60); Est Glom Filt Rate - Afr Amer 156 mL/min (>60); Estimated Creatinine Clearance 169.34 ml/min; Globulin 3.7 g/dL (2.2-4.2); Glucose 97 mg/dL (74-106); Lipase 24 U/L (13-75); Potassium 3.8 mmol/L (3.5-5.1); Protein, Total 7.7 g/dL (6.4-8.2); Sodium Level 141 mmol/L (136-145)
[2024-01-29 09:39] VITALS: BP 114/78; PULSE 78; RESP 16; O2SAT 98
[2024-01-29] MEDS: Ciprofloxacin 500 MG Tablet PO (10:52)
[2024-01-29] MEDS: metroNIDAZOLE 500 MG Tablet PO (10:52)
[2024-01-29 10:54] VITALS: BP 124/78; PULSE 64; RESP 16; TEMP 36.4; O2SAT 99
== END 2024-01-29 10:56 | disposition home or self-care (01) ==
PROVIDERS: Emergency Provider Emergency Medicine; PCP Family Medicine; Visit Provider Emergency Medicine
DX: K52.9 Noninfective gastroenteritis and colitis, unspecified (principal); F17.290 Nicotine dependence, other tobacco product, uncomplicated; Z86.010 Personal history of colon polyps
CPT/HCPCS: 74177; 80053; 81001; 82274; 83690; 85025; 99284; J7030; Q9967; A4216

== ENCOUNTER 2024-03-27 09:57 | Day surgery (SDC) | payer BC, SELFPAY ==
[2024-03-27 10:11] VITALS: BP 143/87; PULSE 76; RESP 18; TEMP 36.8; O2SAT 100; BMI 21.0
--- NOTE | 2024-03-27 10:14 | PCM.HP.BLA ---
History and Physical Date of Admission: 03/27/24 Date of Service: 03/10/24 MR#: [id number] Acct: [id number] Name: CINDY CUNNINGHAM Rep #: [id number] : 2000 Provider: Dr. Estee Leyva MD Age/Sex: 23/M Location: [facility] Status: Signed Intake Vital Signs 02/03/2409:02 03/10/2409:02 Height 6 ft 4 in 6 ft 4 in Weight: 179 lb 6 oz 177 lb 6 oz BMI 21.8 21.6 BP 116/72 140/91 H Blood Pressure Location Lt brachial Rt brachial Position Sitting Sitting Respiration 16 18 Pulse 48 L 96 Pulse Source Monitor Monitor Temp 97.4 F L 97.3 F L Temp Source Temporal Temporal Pulse Oximetry (%) 99 100 Oxygen Delivery Method room air room air Intake Visit Reasons: hx of polyps Chief Complaint: hx of polpys Is patient in pain?: No Allergies cephalexin Allergy (Mild, Verified 03/10/24 09:08) Rash-HivesPenicillins [PCN] Allergy (Verified 03/10/24 09:08) Rashsertraline [From Zoloft] Adverse Reaction (Severe, Verified 03/10/24 09:08) Other Medications multivitamin (Daily Multi-Vitamin tablet) 1 tab PO DAILY 04/11/23 [History Confirmed 03/10/24] venlafaxine 75 mg capsule,extended release 24 hr (Effexor XR) 75 mg PO DAILY #90 caps 10/09/23 [Rx Confirmed 03/10/24] metoprolol succinate 50 mg tablet,extended release 24 hr 50 mg PO DAILY #30 tabs 10/29/23 [Rx Confirmed 03/10/24] metronidazole 500 mg tablet 500 mg PO Q6H #40 tabs 01/29/24 [Rx Confirmed 03/10/24] omeprazole 40 mg capsule,delayed release 40 mg PO QDAY #30 caps 03/12/24 [Rx Confirmed 03/12/24] PFSH Medical History (Updated 03/12/24 @ 08:[address] Estee Leyva MD) Allergic rhinitis Anxiety Anxiety about health Chest pain Condyloma acuminata GERD (gastroesophageal reflux disease) Hearing problem History of suicidal ideation IBS (irritable bowel syndrome) Inguinal lymphadenitis Left ventricular dilatation Non-sustained ventricular tachycardia Palpitations Pectus excavatum Pre-syncope Seasonal allergies Family History Grandfather Cancer Parkinson disease Thyroid disorderGrandmother Cancer OsteoporosisFather Arthritis Myocardial infarction, Onset Age: 54 Cancer skin Spinal stenosis Heart disease atrial fibMother Thyroid disorderOther CAD (coronary artery disease) Social History Smoking Status: Current some day smoker tobacco type: e-cigarettes alcohol intake: current alcohol intake frequency: a few times a week Alcohol type: beer substance use type: does not use what type of physical activity do you participate in: walking and running frequency: 3-4 times per week seatbelt use: always do you feel safe at home: Yes HPI HPI HPI: 23 y/o M presents for EGD & Colonoscopy due to GERD, blood in stool. Pt had colonoscopy in [address] Santiago- pt thought he had 3 polyps but actually only one hyperplastic in sigmoid and negative random biopsy and normal TI bx to r/o crohns. Pt denies FH of IBD/colon cancer. Pt states his BM go between diarrhea/constipation. Pt has occasionally blood in stool- bright red/maroon occ black about 2 x a week, with stool in between with no blood. BM daily. no known hemorrhoids, occ n/v, daily GERD-burning up esophagus-not on medication. ROS General General: No weight change, appetite, fatigue, colon cancer, breast cancer or weakness HEENT HEENT: No difficulty swallowing, eye injury, eye surgery, swollen glands or hoarseness Endo Endocrine: No thyroid disease, diabetes mellitus, thyroid cancer, Hair loss, heat intolerance or cold intolerance Skin Skin: No rash or changing moles Musc Musculoskeletal: No back problems, arthritis, rheumatoid arthritis, gout or joint pain Cardio Cardiovascular: Yes high blood pressure; No murmur, pacemaker, heart disease, atrial fibrillation, heart attack, heart stent, palpitations, shortness of breat with exertion or chest pain Psych Psychiatric: Yes depression and anxiety; No hearing voices Resp Respiratory: No shortness of breath, No sleep apnea, No cough, No COPD, No asthma, No emphysema and No wheezing Gastro Gastrointestinal: Yes abdominal pain, Yes nausea or vomiting, Yes diarrhea, Yes constipation, Yes blood in stool, No acid reflux, Yes hemorrhoids, No ulcers, No gallbladder problem and No black,tarry stools [place] Hematologic: No blood thinners, No blood disorders, No bleeding, No anemia and No blood clots Neuro Neurologic: No numbness, No tingling and No weakness Exam Const General: cooperative, healthy appearing, comfortable and no acute distress HENVA Head: normocephalic and atraumatic Neck Neck: supple Resp Effort & Inspection: normal respiratory effort Cardio Rate: regular rate GI Inspection: non-distended Palpation: soft, no hernias and nontender Skin General: no rashes or lesions noted Neuro General: CN's II-XI intact bilaterally Extrem General: normal to inspection Psych Mental Status: mental status grossly normal Attitude: cooperative Assessment and Plan Assessment and Plan (1) GERD (gastroesophageal reflux disease): Status: Acute (2) Blood per rectum: Status: Acute Orders: Orders Colonoscopy 03/27/24 Maddie ORDOÑEZ PA-C EGD 03/27/24 Maddie ORDOÑEZ PA-C Medications: New omeprazole swallow whole; do not crush, chew, dissolve, cut, break 40 mg PO QDAY [address] Estee Leyva MD Plan Will send in script for omeprazole as pt has GERD daily. Also d/w pt that he can always out eat medication if he has something that irritates it like spicy foods, alcohol, etc. I have discussed the above with the patient. I have offered the patient esophagogastroduodenoscopy and colonoscopy for evaluation. I have explained the risks/benefits of the procedure and described the procedure. I have discussed the risks with the patient, including but not limited to: infection, bleeding, perforation of the GI tract requiring emergency surgery, inability to complete the procedure, injury to any internal organs, complications of anesthesia, etc. - the patient understands and agrees to proceed. I have answered all the patient's questions to the patient's satisfaction and the patient has no further questions. The patient has been given instructions for the colon cleansing preparation. 1 day of clears, MiraLAX Dulcolax prep. Estee Leyva M.D. Pager: [phone] [facility] [address] [place] [address], [facility], [address] [place] [address] Office: [phone] Coding Level of Care Code Off vis,new,level 3 Diagnoses GERD (gastroesophageal reflux disease) K21.9 Blood per rectum K62.5 03/12/24 0901 <Electronically signed by Estee Leyva MD> Date Estee Leyva MD
[2024-03-27] MEDS: Lactated Ringers 1,000 ML 15 ML IV (10:16)
[2024-03-27 11:20] VITALS: BP 143/87; BP 97/96; PULSE 86; RESP 14; TEMP 36.5; O2SAT 99
--- NOTE | 2024-03-27 11:23 | OP.EGD_ITS ---
Patient Name: Peng Lora Procedure Date: 03/27/2024 10:36 AM Date of : 2000 Age: 23 Procedure: Upper GI endoscopy Indications: Heartburn Providers: Estee Leyva MD Medicines: Monitored Anesthesia Care Patient Profile: This is a 23 year old male. Complications: No immediate complications. Procedure: Pre-Anesthesia Assessment: - Prior to the procedure, a History and Physical was performed, and patient medications and allergies were reviewed. The patient's tolerance of previous anesthesia was also reviewed. The risks and benefits of the procedure and the sedation options and risks were discussed with the patient. All questions were answered, and informed consent was obtained. Prior Anticoagulants: The patient has taken no anticoagulant or antiplatelet agents. ASA Grade Assessment: Per anesthesia. After reviewing the risks and benefits, the patient was deemed in satisfactory condition to undergo the procedure. After obtaining informed consent, the endoscope was passed under direct vision. Throughout the procedure, the patient's blood pressure, pulse, and oxygen saturations were monitored continuously. The Colonoscope was introduced through the mouth, and advanced to the second part of duodenum. The upper GI endoscopy was accomplished without difficulty. The patient tolerated the procedure well. Scope In: 10:55:41 AM Scope Out: 10:58:37 AM Total Procedure Duration Time 0 hours 2 minutes 56 seconds Findings: The Z-line was variable. The cardia and gastric fundus were normal on retroflexion. Mildly erythematous mucosa without bleeding was found in the gastric antrum. Biopsies were taken with a cold forceps for histology. Biopsies were taken with a cold forceps for Helicobacter pylori cultures. The examined duodenum was normal. No gross lesions were noted in the entire esophagus. Impression: - Z-line variable. - Erythematous mucosa in the antrum. Biopsied. - Normal examined duodenum. - No gross lesions in the entire esophagus. Recommendation: - Await pathology results. - Discharge patient to home. - Resume previous diet. - Use Prilosec (omeprazole) 40 mg PO daily. - Continue present medications. Procedure Code(s): --- Professional --- 12109, Esophagogastroduodenoscopy, flexible, transoral; with biopsy, single or multiple Diagnosis Code(s): --- Professional --- K22.89, Other specified disease of esophagus K31.89, Other diseases of stomach and duodenum R12, Heartburn CPT copyright 2021 [employer]. All rights reserved. The codes documented in this report are preliminary and upon certified medical coder review may be revised to meet current compliance requirements. MD Estee Duran MD 03/27/2024 11:22:32 AM This report has been signed electronically. Number of Addenda: 0 Note Initiated On: 03/27/2024 10:36 AM
--- NOTE | 2024-03-27 11:23 | OP.CCLET_ITS ---
03/27/2024 Rodrigo Romeo Re : Upper GI endoscopy procedure for Peng Lora Dear Dr. Romeo This procedure was performed on Wednesday, March 27, 2024. My impressions and recommendations are as follows: Impressions : - Z-line variable. - Erythematous mucosa in the antrum. Biopsied. - Normal examined duodenum. - No gross lesions in the entire esophagus. Recommendations : - Await pathology results. - Discharge patient to home. - Resume previous diet. - Use Prilosec (omeprazole) 40 mg PO daily. - Continue present medications. My findings are described in the full procedure note, which is enclosed. If I can be of further assistance, please feel free to contact me at Doctor phone number(s): , Work: . Sincerely, MD Estee Duran MD 03/27/2024 11:22:32 AM This report has been signed electronically.
[2024-03-27 11:25] VITALS: BP 106/69; BP 143/87; PULSE 64; RESP 14; O2SAT 100
--- NOTE | 2024-03-27 11:26 | OP.CCLET_ITS ---
03/27/2024 Rodrigo Romeo Re : Colonoscopy procedure for Peng Lora Dear Dr. Romeo This procedure was performed on Wednesday, March 27, 2024. My impressions and recommendations are as follows: Impressions : - Non-bleeding internal hemorrhoids. - The entire examined colon is normal. - The examined portion of the ileum was normal. - No specimens collected. Recommendations : - Discharge patient to home. - Resume previous diet. - Continue present medications. - Repeat colonoscopy in 10 years for screening purposes. My findings are described in the full procedure note, which is enclosed. If I can be of further assistance, please feel free to contact me at Doctor phone number(s): , Work: . Sincerely, MD Estee Duran MD 03/27/2024 11:25:12 AM This report has been signed electronically.
--- NOTE | 2024-03-27 11:26 | OP.COLON_ITS ---
Patient Name: Peng Lora Procedure Date: 03/27/2024 10:59 AM Date of : 2000 Age: 23 Procedure: Colonoscopy Indications: Rectal bleeding Providers: Estee Leyva MD Medicines: Monitored Anesthesia Care Patient Profile: This is a 23 year old male. Last Colonoscopy: 2017. Complications: No immediate complications. Procedure: Pre-Anesthesia Assessment: - Prior to the procedure, a History and Physical was performed, and patient medications and allergies were reviewed. The patient's tolerance of previous anesthesia was also reviewed. The risks and benefits of the procedure and the sedation options and risks were discussed with the patient. All questions were answered, and informed consent was obtained. Prior Anticoagulants: The patient has taken no anticoagulant or antiplatelet agents. ASA Grade Assessment: Per anesthesia. After reviewing the risks and benefits, the patient was deemed in satisfactory condition to undergo the procedure. After I obtained informed consent, the scope was passed under direct vision. Throughout the procedure, the patient's blood pressure, pulse, and oxygen saturations were monitored continuously. The Colonoscope was introduced through the anus and advanced to the terminal ileum. The colonoscopy was performed without difficulty. The patient tolerated the procedure well. The quality of the bowel preparation was good. Scope In: 11:00:21 AM Scope Withdrawal Time 0 hours 8 minutes 35 seconds Scope Out: 11:14:37 AM Total Procedure Duration Time 0 hours 14 minutes 16 seconds Findings: Non-bleeding internal hemorrhoids were found. The hemorrhoids were Grade I (internal hemorrhoids that do not prolapse). The entire examined colon appeared normal. The terminal ileum appeared normal. Impression: - Non-bleeding internal hemorrhoids. - The entire examined colon is normal. - The examined portion of the ileum was normal. - No specimens collected. Recommendation: - Discharge patient to home. - Resume previous diet. - Continue present medications. - Repeat colonoscopy in 10 years for screening purposes. Procedure Code(s): --- Professional --- 01741, Colonoscopy, flexible; diagnostic, including collection of specimen(s) by brushing or washing, when performed (separate procedure) Diagnosis Code(s): --- Professional --- K64.0, First degree hemorrhoids K62.5, Hemorrhage of anus and rectum CPT copyright 2021 [employer]. All rights reserved. The codes documented in this report are preliminary and upon sous chef review may be revised to meet current compliance requirements. MD Estee Duran MD 03/27/2024 11:25:12 AM This report has been signed electronically. Number of Addenda: 0 Note Initiated On: 03/27/2024 10:59 AM
[2024-03-27 11:30] VITALS: BP 105/68; BP 143/87; PULSE 66; RESP 14; O2SAT 100
[2024-03-27 11:37] VITALS: BP 105/86; BP 143/87; PULSE 70; RESP 16; TEMP 36.2; O2SAT 100
[2024-03-27 11:55] VITALS: BP 143/87
--- NOTE | 2024-03-27 13:30 | EGD_PTH ---
PATIENT: CINDY CUNNINGHAM LOC: EN U#:[id number] AGE/SX: 23/M ROOM: RE03/27/[address]: Dr. Estee Leyva MD : 2000 BED: DIS: 03/27/2024 SPEC #: [id number] RECD: 03/27/24 14:06 STATUS: LIA KT #: [id number] SAM: 03/27/24 13:[address]: Estee Leyva DEPT: SURGICAL PATHOLOGY RECD BY: Pearl Cueto ENTERED: 03/27/24 14:22 SP TYPE: EGD BIOPSY TYLER DR: Dr. Rodrigo Romeo, DO Tissues: Gastric mucous membrane Procedures: Surgery Specimen Level IV HEADER OPERATION: Colonoscopy, EGD biopsy PRE-OP DIAGNOSIS: GERD, Blood per rectum TISSUE SUBMITTED: Gastric antrum biopsy MICROSCOPIC DIAGNOSIS Gastric antrum, biopsy: Chronic gastritis. AM/ 03/31/2024 COMMENT The results of immunohistochemistry for Helicobacter pylori will be reported separately ([id number]). MICROSCOPIC DESCRIPTION Slides are reviewed. GROSS DESCRIPTION Received in fixative is one container labeled with the patient's name and designated Gastric antrum biopsy. The specimen consists of one irregular fragment of light delcid soft tissue that measures 0.6 x 0.3 x 0.1 cm. The specimen is totally submitted in one cassette. TRI/ 03/27/2024 TC:3 CPT:41721
--- NOTE | 2024-03-27 13:30 | IMM_PTH ---
PATIENT: CINDY CUNNINGHAM LOC: EN U#:[id number] AGE/SX: 23/M ROOM: RE03/27/[address]: Dr. Estee Leyva MD : 2000 BED: DIS: 03/27/2024 SPEC #: [id number] RECD: 03/27/24 14:34 STATUS: LIA REQ #: [id number] SAM: 03/27/24 13:[address]: Estee Leyva DEPT: IMMUNOHISTOCHEMISTRY RECD BY: Dexter Stephen ENTERED: 03/27/24 14:34 SP TYPE: IMMUNO OTHR DR: Dr. Rodrigo Romeo DO Tissues: Stomach, NOS Procedures: H Pylori (initial) PHYSICIAN & INSTITUTION [place] [address] SPECIMEN INFORMATION: Tissue Source: Gastric antrum Clinical Info: GERD, Blood per rectum Specimen Number: [id number] CPT code: 90103 METHODOLOGY: Deparaffinized sections of prefer/formalin-fixed tissue or PAP/DQ stained slides are incubated with monoclonal/polyclonal antibodies/oligonucleotide probes. Localization is made via biotin free immunoperoxidase method. Appropriate controls are performed and reacted as expected. Results on target cell population are indicated in the following table: RESULTS: ANTIBODY / CLONE RESULT H Pylori (polyclonal) negative These tests were developed and their performance characteristics determined by [facility]. They may not have been cleared or approved by the U.S. Food and Drug Administration. The FDA has determined that such clearance or approval is not necessary. The above immunohistochemical/dualISH markers are ordered and reviewed by the Pathologist. INTERPRETATION: Gastric antrum, biopsy: Negative for Helicobacter pylori organisms. MICHELLE/ 03/31/2024
== END 2024-03-27 12:02 | disposition home or self-care (01) ==
LOC: EN 09:57 → AC 09:59
PROVIDERS: PCP Family Medicine; Referring Provider Surgery; Visit Provider Surgery
PROC: 0DJD8ZZ Inspection of Lower Intestinal Tract, Via Natural or Artificial Opening Endoscopic (ICD-10-PCS; CPT 45378; principal; 2024-03-27 13:25)
DX: K29.50 Unspecified chronic gastritis without bleeding (principal); F31.9 Bipolar disorder, unspecified; K62.5 Hemorrhage of anus and rectum; F17.290 Nicotine dependence, other tobacco product, uncomplicated; K64.0 First degree hemorrhoids; K21.9 Gastro-esophageal reflux disease without esophagitis; F41.9 Anxiety disorder, unspecified; K31.89 Other diseases of stomach and duodenum; K22.89 Other specified disease of esophagus; Z79.899 Other long term (current) drug therapy; Z86.010 Personal history of colon polyps
CPT/HCPCS: 43239; 45378; 88305; 88342; J7120; J2405

== ENCOUNTER 2024-11-25 15:53 | Emergency (ER) | payer BC, SELFPAY ==
[2024-11-25 15:54] VITALS: BP 142/100; PULSE 106; RESP 20; TEMP 36.1; O2SAT 100; BMI 22.4
--- NOTE | 2024-11-25 16:31 | EX.ED.DYSGE1 ---
HPI History of Present Illness Chief Complaint: Numb/Ting Informant: patient Narrative Narrative: Presents here after waking at 5:30 AM numbness left ear and left jaw this been persistent. No history of similar. No ear pain face pain. No headaches. Denies hemiparesis arms or legs. No history of similar. No speech changes. History of bipolar and GERD on medications. Family history in a first cousin having multiple sclerosis on his dad side. Prior similar symptoms: No PFSH PFSH Medical History History of echocardiogram Hearing loss d/t noise Wears glasses Bipolar disorder Alcohol use Gastric reflux Smoker Cardiology follow-up encounter GERD (gastroesophageal reflux disease) History of suicidal ideation Left ventricular dilatation Pectus excavatum Non-sustained ventricular tachycardia Allergic rhinitis Anxiety Pre-syncope Chest pain Palpitations Inguinal lymphadenitis Condyloma acuminata Anxiety about health IBS (irritable bowel syndrome) Hearing problem Seasonal allergies Home Medications ?Medication ?Instructions ?Recorded ?Last Taken ?Type multivitamin (Daily Multi-Vitamin 1 tab PO DAILY 04/11/23 Unknown History tablet) metoprolol succinate 50 mg 50 mg PO DAILY PRN PALPITATION 03/23/24 Unknown History tablet,extended release 24 hr venlafaxine 75 mg capsule,extended 75 mg PO DAILY #90 caps 07/28/24 Unknown Rx release 24 hr omeprazole 40 mg capsule,delayed 40 mg PO DAILY #30 caps 11/06/24 Unknown Rx release Allergy/AdvReac Type Severity Reaction Status Date / Time cephalexin Allergy Mild Rash-Hives Verified 11/25/24 15:54 Penicillins (PCN) Allergy Rash Verified 11/25/24 15:54 sertraline (From Zoloft) AdvReac Severe Other Verified 11/25/24 15:54 Family History Grandfather Cancer Parkinson disease Thyroid disorder Grandmother Cancer Osteoporosis Father Arthritis Myocardial infarction, Onset Age: 54 Cancer skin Spinal stenosis Heart disease atrial fib Mother Thyroid disorder Other CAD (coronary artery disease) Surgical History History of colonoscopy Social History Smoking Status: Current some day smoker tobacco type: e-cigarettes alcohol intake: current alcohol intake frequency: a few times a week Alcohol type: beer substance use type: does not use what type of physical activity do you participate in: walking and running frequency: 3-4 times per week seatbelt use: always do you feel safe at home: Yes ROS ROS ED Constitutional Constitutional ED: Denies chills, fever(s) or sweats ENT ENT ED: Denies sore throat Cardiovascular Cardiovascular: Denies chest pain, leg edema, palpitations or racing heartbeat Respiratory/Chest Respiratory/Chest: Denies cough, dyspnea or dyspnea on exertion Gastrointestinal Gastrointestinal: Denies abdominal pain, diarrhea, nausea or vomiting Genitourinary Genitourinary ED: Denies dysuria, hematuria or urinary frequency Musculoskeletal Musculoskeletal: Denies back pain, extremity pain or neck pain Integumentary Denies rash or wounds Neurologic Neurologic: Reports paresthesias; Denies headache(s) or weakness EXAM Physical Exam Const Vital Signs: 11/25/24 15:54 Temperature 97 F L Temperature Source Temporal Pulse Rate 106 H Respiratory Rate 20 H Blood Pressure 142/100 H Blood Pressure Mean 114 Pulse Ox 100 Oxygen Delivery Method Room Air Positive well nourished and well developed General Appearance ED: well developed and NAD HEENT Reports moist mucous membranes normocephalic and atraumatic Eyes General Eye ED: Yes normal appearance of both eyes Neck full ROM Chest Wall Chest: Negative for tenderness Resp normal respiratory effort and normal air movement Effort and Inspection: symmetric chest movement; Negative for respiratory distress Cardio regular rate, regular rhythm and no murmurs Peripheral Pulses: pulses 2+ throughout GI normal to inspection, nondistended, normoactive bowel sounds and non-tender Palpation: Negative for guarding or rebound tenderness present Extremity normal to inspection General Extremety ED: Negative for edema or tenderness General Extremity: Negative for edema Neuro oriented x3 and no sensory deficits noted Sensorium / Orientation: awake and alert Skin Skin Narrative: decrease sensation left V3 branch ear and jaw. Normal sensation V1 V2. MDM MDM MDM Narrative Medical decision making narrative: Interventions / MDM: Differential diagnosis: Left V3 paresthesia Diagnosis considered but do not suspect: No pain region for concerns of shingles. No facial motor involvement for concerns of Zuñiga's palsy. My EKG interpretation: N/A Imaging independently reviewed and interpreted by myself: N/A External documents reviewed: N/A Test considered but not ordered:N/A ED course: Patient with focal paresthesia left V3 branch mandibular nerve. No other deficits. Discussed nonspecific symptoms at this time. Discussed he does have a cousin with MS therefore needs to monitor for other areas of paresthesias that may warrant workup. At this time he will monitor symptoms discussed new concerning symptoms needs immediate return to the ED. the patient understands and agrees with plan. All questions were answered. Re-evaluation: stable Disposition discussed with patient/family/significant other: Patient Case discussed with consulting clinician: N/A This note was generated with [employer] dictation software. It may contain incorrect words, spelling, and punctuation that were not noted in checking the note before signing. Discharge Plan Triage Chief Complaint: Numb/Ting ED Provider: Lowell Snaders Dx/Rx/DC Orders Clinical Impression: Paresthesia Instructions: ED Paraesthesias Prescriptions: No Action multivitamin [Daily Multi-Vitamin] Tablet 1 tab PO DAILY venlafaxine 75 mg capsule,extended release 24hr 75 mg PO DAILY Qty: 90 1RF metoprolol succinate 50 mg tablet extended release 24 hr 50 mg PO DAILY PRN (Reason: PALPITATION) omeprazole 40 mg capsule,delayed release(DR/EC) 40 mg PO DAILY Qty: 30 0RF Primary Care Provider: Rodrigo Romeo Referrals: Rodrigo Romeo, [Primary Care Provider] - 1-2 Weeks Activity Restrictions/Additional Instructions: You have focal paresthesia to the left V3 branch mandibular nerve. Normal sensation of V1 and V2. Nonspecific this time. Does not isolate to stroke symptoms, with numbness not shingles. No weakness for concerns for Zuñiga's palsy. Monitor for development of other regions of paresthesias and follow-up with your doctor. Report cousin having history of multiple sclerosis. If persistent or new areas of involvement may need workup as an outpatient. Print Language: Wolof Disposition Disposition: Home, Self Care Discharge Date/Time: 11/25/24 16:30
== END 2024-11-25 16:30 | disposition home or self-care (01) ==
LOC: ED 16:25
PROVIDERS: Emergency Provider Emergency Medicine; PCP Family Medicine; Visit Provider Emergency Medicine
DX: R20.2 Paresthesia of skin (principal); F17.290 Nicotine dependence, other tobacco product, uncomplicated
CPT/HCPCS: 99282

== ENCOUNTER 2024-11-26 07:51 | Emergency (ER) | payer BC, SELFPAY ==
[2024-11-26 07:51] VITALS: BP 154/114; PULSE 73; RESP 14; TEMP 36.1; O2SAT 98
--- NOTE | 2024-11-26 08:10 | CT_ITS ---
STUDY: CT CERVICAL SPINE WITHOUT CONTRAST REASON FOR EXAM: Male, 24 years old. pain RADIATION DOSAGE (If Supplied By Facility): CTDIvol = ( 17.71 ) mGy, DLP = ( 416.90 ) mGycm TECHNIQUE: High resolution transaxial imaging was performed without contrast material. Sagittal and coronal images were reconstructed. Individualized dose optimization techniques were used for this CT. COMPARISON: None FINDINGS: Normal craniovertebral junction. Normal anterior atlantoaxial articulation. Normal odontoid process. Normal cervical lordosis. Normal vertebral bodies and posterior osseous elements. C2-3: Normal endplates. Normal disc height and morphology. Normal central canal and intervertebral neuroforamina. C3-4: Normal endplates. Normal disc height and morphology. Normal central canal and intervertebral neuroforamina. C4-5: Normal endplates. Normal disc height and morphology. Normal central canal and intervertebral neuroforamina. C5-6: Normal endplates. Normal disc height and morphology. Normal central canal and intervertebral neuroforamina. C6-7: Normal endplates. Normal disc height and morphology. Normal central canal and intervertebral neuroforamina. C7-T1: Normal endplates. Normal disc height and morphology. Normal central canal and intervertebral neuroforamina. Normal visualized soft tissue structures. CT/Spine Cervical without Contras IMPRESSION: Normal unenhanced CT examination of the cervical spine. Electronically Signed: Alberto Baltazar MD at 9:19 EST ,
--- NOTE | 2024-11-26 08:10 | CT_ITS ---
STUDY: CT BRAIN WITHOUT CONTRAST REASON FOR EXAM: Male, 24 years old. Left paresthesias RADIATION DOSAGE (If Supplied By Facility): CTDIvol = ( 44.99 ) mGy, DLP = ( 779.24 ) mGycm TECHNIQUE: Transaxial CT imaging of the brain was performed without administration of intravenous contrast material. Individualized dose optimization techniques were used for this CT. COMPARISON: No relevant priors. FINDINGS: Normal soft tissue structures. Normal calvarium. Normal size ventricles and extra-axial spaces for the patient''s age. Normal white matter tracts of the cerebral hemispheres. Normal basal ganglia and thalami. Normal brainstem. Normal cerebellum. There is no intracranial hemorrhage. There are no findings of an acute ischemic infarction. Normal visualized paranasal sinuses. CT/Brain/Head without Contrast IMPRESSION: Normal unenhanced CT scan of the brain. Electronically Signed: Alberto Baltazar MD at 9:16 EST ,
--- NOTE | 2024-11-26 08:12 | EX.ED.UPPERE ---
HPI History of Present Illness Chief Complaint: Upper Extremity Injury Informant: patient Narrative Narrative: 24-year-old male presenting to the emergency room with left posterior shoulder pain and left arm paresthesias. Patient states he was seen in emergency yesterday with left facial paresthesias. He states that over the past several days his entire left face is numb. This is different than what was described to the ED physician yesterday. In either case patient states that that is unchanged he has not developed any facial weakness or visual changes. He has not developed a rash. When he awoke today he had pain in the left posterior shoulder near his scapula and his left arm felt numb. Now he notes intermittent pain shooting into the arm. No left arm weakness no leg symptoms. No chest pain. No dyspnea. He notes occasional charley horses in his feet. He states he called his primary care doctor and was sent to emergency. [facility] Medical History History of echocardiogram Hearing loss d/t noise Wears glasses Bipolar disorder Alcohol use Gastric reflux Smoker Cardiology follow-up encounter GERD (gastroesophageal reflux disease) History of suicidal ideation Left ventricular dilatation Pectus excavatum Non-sustained ventricular tachycardia Allergic rhinitis Anxiety Pre-syncope Chest pain Palpitations Inguinal lymphadenitis Condyloma acuminata Anxiety about health IBS (irritable bowel syndrome) Hearing problem Seasonal allergies Home Medications ?Medication ?Instructions ?Recorded ?Last Taken ?Type multivitamin (Daily Multi-Vitamin 1 tab PO DAILY 04/11/23 Unknown History tablet) metoprolol succinate 50 mg 50 mg PO DAILY PRN PALPITATION 03/23/24 Unknown History tablet,extended release 24 hr venlafaxine 75 mg capsule,extended 75 mg PO DAILY #90 caps 07/28/24 Unknown Rx release 24 hr omeprazole 40 mg capsule,delayed 40 mg PO DAILY #30 caps 11/06/24 Unknown Rx release Allergy/AdvReac Type Severity Reaction Status Date / Time cephalexin Allergy Mild Rash-Hives Verified 11/26/24 07:52 Penicillins (PCN) Allergy Rash Verified 11/26/24 07:52 sertraline (From Zoloft) AdvReac Severe Other Verified 11/26/24 07:52 Family History Grandfather Cancer Parkinson disease Thyroid disorder Grandmother Cancer Osteoporosis Father Arthritis Myocardial infarction, Onset Age: 54 Cancer skin Spinal stenosis Heart disease atrial fib Mother Thyroid disorder Other CAD (coronary artery disease) Surgical History History of colonoscopy Social History Smoking Status: Current some day smoker tobacco type: e-cigarettes alcohol intake: current alcohol intake frequency: a few times a week Alcohol type: beer substance use type: does not use what type of physical activity do you participate in: walking and running frequency: 3-4 times per week seatbelt use: always do you feel safe at home: Yes ROS ROS ED Constitutional Constitutional ED: Denies chills, fever(s) or weight loss Eyes Eyes: Denies change in vision or diplopia ENT ENT ED: Denies ear pain, rhinorrhea or sore throat Cardiovascular Cardiovascular: Denies chest pain, orthopnea, palpitations or racing heartbeat Respiratory/Chest Respiratory/Chest: Denies cough, dyspnea or orthopnea Gastrointestinal Gastrointestinal: Denies abdominal pain, diarrhea, nausea or vomiting Genitourinary Genitourinary ED: Denies dysuria, hematuria or urinary frequency Musculoskeletal Musculoskeletal: Reports back pain; Denies arthralgias or myalgias Integumentary Denies abscess or rash Neurologic Neurologic: Reports paresthesias; Denies headache(s) or weakness Psychiatric Psychiatric: Denies anxiety, depression, suicidal ideation or suicidal thoughts Endocrine Endocrinology: Denies polydipsia, polyphagia or polyuria Allergic/Immunologic Allergic/Immunologic ED: Denies mouth swelling, tongue swelling or urticaria EXAM Physical Exam Const Vital Signs: 11/26/24 07:51 Temperature 96.9 F L Temperature Source Temporal Pulse Rate 73 Respiratory Rate 14 Blood Pressure 154/114 H Blood Pressure Mean 127 Pulse Ox 98 Oxygen Delivery Method Room Air Positive well nourished and well developed General Appearance ED: well developed HEENT Reports normocephalic, head/scalp atraumatic and moist mucous membranes Eyes PERRL and EOMs intact bilaterally Neck no lymphadenopathy, supple and no JVD Resp normal respiratory effort and clear to auscultation bilaterally Cardio regular rate, regular rhythm and no murmurs GI normal to inspection, nondistended, normoactive bowel sounds and non-tender Palpation: soft Back/Spine no CVA tenderness and normal ROM Extremity Extremity Narrative: Patient states he has tenderness to palpation in the left supraspinatus region. I do not appreciate any rashes there. He notes it is worse with range of motion. I do not appreciate any focal deficits in the range of motion. No loss of sensation or strength. General Extremety ED: Negative for edema General Extremity: Negative for edema Neuro oriented x3 Neuro Narrative: Patient states he has loss of sensation over the his entire left face. There is no motor changes compared to the right. There is no rash in the skin scalp ear canal. Upper extremity triceps brachial radialis DTR are intact/equal Sensorium / Orientation: alert Motor Exam: strength 5/5 throughout Psych mental status grossly normal Mood & Affect: Negative for depressed or tearful Skin no rashes or lesions noted and no wounds MDM MDM MDM Narrative Medical decision making narrative: Differential diagnosis includes but not limited to anemia electrolyte abnormalities dehydration stroke intracranial hemorrhage/malignancy neurologic concerns such as demyelinating neuropathies muscular spasm CT of the brain does not show any acute findings or obvious malignancies. There is no edema noted. CT of the cervical spine appeared normal. Clinically the patient has subjective numbness left facial from infraorbital region to his left ear. He does not have any ocular symptomology. The patient is otherwise neuro vastly intact with no motor deficits. CBC and BMP within normal limits. At this point I believe the patient can be discharged home. Would recommend primary care follow-up return if worsening or concerns History & Record Review Discussion w/independent historian: Patient Discharge Plan Triage Chief Complaint: Upper Extremity Injury ED Provider: Dakota Jarquin Dx/Rx/DC Orders Clinical Impression: Facial paresthesia, Acute pain of left shoulder Instructions: ED Paraesthesias Prescriptions: No Action multivitamin [Daily Multi-Vitamin] Tablet 1 tab PO DAILY venlafaxine 75 mg capsule,extended release 24hr 75 mg PO DAILY Qty: 90 1RF metoprolol succinate 50 mg tablet extended release 24 hr 50 mg PO DAILY PRN (Reason: PALPITATION) omeprazole 40 mg capsule,delayed release(DR/EC) 40 mg PO DAILY Qty: 30 0RF Primary Care Provider: Rodrigo Romeo Referrals: Rodrigo Romeo, [Primary Care Provider] - 1 Week Print Language: Macedonian Disposition Disposition: Home, Self Care
[2024-11-26 08:42] LABS: Absolute Lymphocyte Count 0.91 X10^3/uL (0.83-4.51); Absolute Neutrophil Count 9.3 X10^3/uL (2.0-7.7); Basophil# 0.07 X10^3/uL; Basophil% 0.6 % (0-1); Eosinophil# 0.04 X10^3/uL; Eosinophils% 0.4 % (0-5); Hemoglobin 15.4 g/dL (13.0-16.5); Lymphocyte # 0.91 X10^3/ul (0.83-4.51); Lymphocyte % 8.3 % (19-41); Mean Corpuscular Hgb 31.7 pg (27.0-32.0); Mean Corpuscular Volume 90.5 fL (80-94); Mean Platelet Vol. 9.4 fl (6.2-12.0); Monocyte# 0.69 X10^3/uL; Monocyte% 6.3 % (0-10); NRBC Flagged by Analyzer 0 % (0-5); Neutrophil # 9.26 X10^3/uL (2.7-7.7); Neutrophil % 83.9 % (47-70); Platelet Count 373 K/mm3 (150-450); RBC Distribution Width CV 11.8 % (11.6-14.6); RBC Distribution Width SD 39.3 fl (35.1-43.9); Red Blood Count 4.86 M/mm3 (4.6-6.2)
[2024-11-26 09:12] LABS: Anion Gap 5 (5-15); BUN 13 mg/dL (7-18); BUN/Creat Ratio 15.4 RATIO (10-20); Calcium,Total 9.1 mg/dL (8.5-10.1); Chloride 102 mmol/L (98-107); Creatinine, Serum 0.84 mg/dL (0.70-1.30); EST Glomerular Filtration Rate 118 mL/min (>60); Est Glom Filt Rate - Afr Amer 143 mL/min (>60); Glucose 127 mg/dL (74-106); Potassium 3.9 mmol/L (3.5-5.1); Sodium Level 137 mmol/L (136-145)
[2024-11-26 09:50] VITALS: BP 140/89; PULSE 78; RESP 16; TEMP 36.6; O2SAT 99
== END 2024-11-26 09:53 | disposition home or self-care (01) ==
PROVIDERS: Emergency Provider Emergency Medicine; PCP Family Medicine; Visit Provider Emergency Medicine
DX: R20.2 Paresthesia of skin (principal); F31.9 Bipolar disorder, unspecified; M25.512 Pain in left shoulder; F17.290 Nicotine dependence, other tobacco product, uncomplicated
CPT/HCPCS: 70450; 72125; 80048; 85025; 99282

== ENCOUNTER 2025-08-15 10:04 | Emergency (ER) | payer BC, SELFPAY ==
[2025-08-15 10:04] VITALS: BP 125/84; PULSE 95; RESP 16; TEMP 36.6; O2SAT 100; BMI 20.5
--- NOTE | 2025-08-15 10:08 | ED.VIS.LOWEX ---
HPI History of Present Illness HPI Narrative: Patient presents with right leg laceration that occurred earlier this morning, approximately 7 hours prior to arrival. Patient states he was [place] in [place] and stepped in a hole. Patient thinks he cut his leg on a tree branch. Patient describes his pain as aching. Patient states it is better when he elevates his leg. Patient states nothing makes it worse. Patient denies any paresthesias or weakness. Patient states his last tetanus was 1 year ago. Chief Complaint: Laceration Informant: patient Occured/Mechanism Comment: Stepped in a hole Onset/Context/Timing Onset: Today Context: Sudden Onset Timing: Continuous Quality of Pain: Aching Location: Right lower leg Worsened by: Nothing Relieved by: Elevation Associated Symptoms Associated Symptoms: Negative for Parasthesia, Weakness or Loss of Funtion Narrative Tetanus Immunization: <5 years PFSH [facility] Medical History History of echocardiogram Hearing loss d/t noise Wears glasses Bipolar disorder Alcohol use Gastric reflux Smoker Cardiology follow-up encounter GERD (gastroesophageal reflux disease) History of suicidal ideation Left ventricular dilatation Pectus excavatum Non-sustained ventricular tachycardia Allergic rhinitis Anxiety Pre-syncope Chest pain Palpitations Inguinal lymphadenitis Condyloma acuminata Anxiety about health IBS (irritable bowel syndrome) Hearing problem Seasonal allergies Home Medications ?Medication ?Instructions ?Recorded ?Last Taken ?Type multivitamin (Daily Multi-Vitamin 1 tab PO DAILY 04/11/23 Unknown History tablet) metoprolol succinate 50 mg 50 mg PO DAILY PRN PALPITATION 03/23/24 Unknown History tablet,extended release 24 hr venlafaxine 150 mg 150 mg PO QDAY 01/26/25 Unknown History capsule,extended release 24 hr (Effexor XR) omeprazole 40 mg capsule,delayed 40 mg PO DAILY #90 caps 02/16/25 Unknown Rx release clindamycin HCl 300 mg capsule 300 mg PO Q6H #40 CAPSULES 08/15/25 Unknown Rx (Cleocin HCl) Allergy/AdvReac Type Severity Reaction Status Date / Time cephalexin Allergy Mild Rash-Hives Verified 01/26/25 09:02 Penicillins (PCN) Allergy Rash Verified 01/26/25 09:02 sertraline (From Zoloft) AdvReac Severe Other Verified 01/26/25 09:02 Family History Grandfather Cancer Parkinson disease Thyroid disorder Grandmother Cancer Osteoporosis Father Arthritis Myocardial infarction, Onset Age: 54 Cancer skin Spinal stenosis Heart disease atrial fib Mother Thyroid disorder Other CAD (coronary artery disease) Surgical History History of colonoscopy Social History Smoking Status: Current some day smoker tobacco type: e-cigarettes alcohol intake: current alcohol intake frequency: a few times a week Alcohol type: beer substance use type: does not use what type of physical activity do you participate in: walking and running frequency: 3-4 times per week seatbelt use: always do you feel safe at home: Yes ROS ROS ED Constitutional Constitutional ED: Denies chills or fever(s) Eyes Eyes: Denies blurry vision or change in vision ENT ENT ED: Denies rhinorrhea or sore throat Cardiovascular Cardiovascular: Denies chest pain or palpitations Respiratory/Chest Respiratory/Chest: Denies cough or dyspnea Gastrointestinal Gastrointestinal: Denies nausea or vomiting Genitourinary Genitourinary ED: Denies dysuria or hematuria Musculoskeletal Musculoskeletal: Denies back pain or neck pain Integumentary Denies abscess or rash Neurologic Neurologic: Denies headache(s) or weakness Allergic/Immunologic Allergic/Immunologic ED: Denies mouth swelling or urticaria EXAM Physical Exam Const Vital Signs: 08/15/25 10:04 Temperature 97.9 F Temperature Source Oral Pulse Rate 95 Respiratory Rate 16 Blood Pressure 125/84 H Blood Pressure Mean 97 Pulse Ox 100 Oxygen Delivery Method Room Air Positive well nourished and well developed General Appearance ED: well developed and NAD HEENT Reports moist mucous membranes Neck full ROM and supple Extremity Extremity Narrative: There is a 5 cm full-thickness curvilinear laceration over the anterior right lower leg. There is minimal bleeding noted. There are no foreign bodies visualized. There is tenderness over the tibia. Strength is 5/5 bilaterally in the lower extremities. There are no sensory deficits noted. Neuro oriented x3, CN's II-XII intact bilaterally, moves all extremities and no sensory deficits noted Sensorium / Orientation: alert Motor Exam: strength 5/5 throughout Psych mental status grossly normal MDM MDM MDM Narrative Medical decision making narrative: Differential diagnose includes laceration, and retained foreign body. X-rays of the right tibia and fibula will be obtained to assess for retained foreign body. History & Record Review Additional record(s) reviewed:: Prior outpatient record and Prior ED visit Radiography Diagnostic Testing: Clinical Impression(s) from Imaging Studies Tibia/Fibula X-Ray 08/15/25 10:25 IMPRESSION: Laceration anterior mid calf without radiopaque foreign body. Negative for fracture. Reading Location: [id number] X-rays of the right tibia and fibula were obtained. There are 4 views. On my independent interpretation, there is no radiopaque foreign body. There is no acute fracture. Radiologist also interpreted the x-rays and agrees. Treatment and Re-Evaluation Narrative: The wound was cleaned and irrigated with copious amounts of normal saline. The wound was anesthetized with 1% plain lidocaine locally. The wound was closed with 4 horizontal mattress # 4 -0 nylon sutures under sterile technique. Patient tolerated the procedure well. Bacitracin dressing was applied. Patient was instructed to keep the wound clean and dry. Patient was given a dose of clindamycin here. Patient is given a prescription for clindamycin. Patient was instructed to follow-up with his primary care physician in 7 to 10 days for wound recheck and suture removal. Patient understood and was agreeable with plan. All questions were answered. Procedures Lacerations Right lower leg: Length: 5 cm Depth: Sub Q Shape: Linear Prep: Sterile Conditions and Chlorhexadine Laceration repair: Irrigated, Lidocaine, Local, Skin sutures and Wound explored Irrigated (ml): 100 Number of Sutures/Georges: 4 Suture Information: Ethilon, Horizontal, Mattress and 4-0 Discharge Plan Triage Chief Complaint: Laceration ED Provider: Kwesi Villarreal Dx/Rx/DC Orders Clinical Impression: Laceration of right lower leg, Anxiety Instructions: ED Laceration Extremity Prescriptions: New clindamycin HCl [Cleocin HCl] 300 mg capsule 300 mg PO Q6H Qty: 40 0RF No Action multivitamin [Daily Multi-Vitamin] Tablet 1 tab PO DAILY venlafaxine [Effexor XR] 150 mg capsule,extended release 24hr 150 mg PO QDAY metoprolol succinate 50 mg tablet extended release 24 hr 50 mg PO DAILY PRN (Reason: PALPITATION) omeprazole 40 mg capsule,delayed release(DR/EC) 40 mg PO DAILY Qty: 90 1RF Primary Care Provider: Rodrigo Romeo Referrals: Rodrigo Romeo, [Primary Care Provider] - 10 Day for suture removal Print Language: Hungarian Disposition Disposition: Home, Self Care
--- NOTE | 2025-08-15 10:25 | RAD_ITS ---
PROCEDURE: TIBIA FIBULA 2 VIEWS 08/15/2025 REASON FOR EXAM: INJURY/PAIN Laceration. TECHNIQUE: Procedure Code: RADTF Modality: DX Procedure: TIBIA FIBULA 2 VIEWS Laterality: Right COMPARISON: None FINDINGS: Bones: Tibia and fibula negative. No fractures. Joints: Knee and ankle articulations negative. Soft tissues: Laceration overlying the anterior mid calf with no radiopaque foreign body. Otherwise soft tissues negative. Other: Remainder of exam negative. RAD/Tibia & Fibula 2 Views IMPRESSION: Laceration anterior mid calf without radiopaque foreign body. Negative for fracture. Reading Location: [id number]
--- OUTSIDE RECORDS SUMMARY | 2025-08-15 11:32 | XMS RPT_ITS | CCD ---
Author Organization [facility] Care Team Providers Care Automation Qa Lead Name Role Phone Unavailable Primary Care Provider UnavailDr. Michael Murphy Primary Care Provider Dr. Michael Spencer Referring Provider [phone] BJ Barroso NP Attending Provider Dr. Michael Spencer Primary Care Provider Dr. Michael Spencer Attending Provider Dr. Michael Spencer Referring Provider Dr. Michael Spencer Primary Care Provider Dr. Michael Spencer Attending Provider Dr. Michael Spencer Referring Provider BJ Cortez Attending Provider [phone] Dr. Estee Leyva Attending Provider Dr. Estee Leyva Referring Provider Dr. Estee Leyva Other Provider BROWN, MICHAEL R Primary Care Unavailable Kwesi Villarreal Attending Unavailable Brown, Michael R Primary Care Unavailable Lowell Sanders Attending Unavailable Brown, Michael R Primary Care Unavailable Dakota Jarquin Attending Unavailable Brown, Michael R Primary Care Unavailable Brown, Michael R Primary Care Unavailable Estee Leyva Attending Unavailable Estee Leyva Referring Unavailable Brown, Michael R Referring Unavailable Brown, Michael R Primary Care Unavailable Estee Leyva Attending Unavailable Brown, Michael R Attending Unavailable Brown, Michael R Referring Unavailable Brown, Michael R Primary Care Unavailable Brown, Michael R Referring Unavailable Brown Michael R Attending Unavailable Brown, Michael R Primary Care Unavailable Brown, Michael R Primary Care Unavailable Estee Leyva Consulting Unavailable Estee Leyva Attending Unavailable Estee Leyva Referring Unavailable Brown, Michael R Referring Unavailable Brown, Michael R Primary Care Unavailable Estee Leyva Attending Unavailable Brown, Michael R Attending Unavailable Brown, Michael R Primary Care Unavailable Brown, Michael R Referring Unavailable Angela Cortez Attending Unavailable Brown, Michael R Referring Unavailable Brown, Michael R Primary Care Unavailable Allergies Allergy Classification Reported Allergen(s) Allergy Type Date of Onset Reaction(s) Facility (5 sources) Cephalexin; Translations: [CEPHALEXIN] [facility] Penicillins Allergy to substance 04-19-2023 [facility] (3 sources) Sertraline; Translations: [SERTRALINE] Drug Allergy 08-25-2023 Other [facility] (1 source) Cephalexin Drug Allergy 01-26-2025 [facility] Repository (1 source) Penicillins Drug allergy (disorder) 01-26-2025 [facility] Repository (1 source) Sertraline Drug Allergy 01-26-2025 [facility] Repository Medications Current Medications Medication Drug Class(es) Dates Sig (Normalized) Sig (Original) 24 hr metoprolol succinate 50 mg extended release oral tablet (20 sources) beta-Adrenergic Debby Start: 10-29-2023 End: 03-23-2024 take 50 mg by mouth once daily Metoprolol Succinate Active 50 MG PO DAILY March 23, 2024 12:00am Start: 08-08-2023 End: 10-29-2023 take 12.5 mg by mouth once Metoprolol Tartrate Discont inued 12.5 MG PO ONCE August 08, 2023 11:47am October 29, 2023 1:43pm Start: 02-13-2022 End: 07-21-2023 take 12.5 mg by mouth once Metoprolol Tartrate Discont inued 12.5 MG PO ONCE February 13, 2022 4:31pm July 21, 2023 10:21pm Start: 02-07-2022 End: 02-13-2022 take 12.5 mg by mouth twice daily Metoprolol Tartrate Discontinued 12.5 MG PO TWICE A DAY 30 March 9th, 2022 1:00am February 13, 2022 4:31pm Start: 11-08-2021 End: 11-16-2021 take 25 mg by mouth once daily Metoprolol Tartrate Dis continued 25 MG PO DAILY November 13, 2021 9:45am November 16, 2021 6:12pm Multivitamin (Daily Multi-Vitamin) tablet (4 sources) Start: 04-11-2023 take 1 tablet by mouth once daily Multivitamin (Daily Multi-Vitamin) tablet Active 1 TABLET PO DAILY April 10, 2023 11:00pm Start: 04-11-2023 take 1 tablet by danae th once daily Multivitamin (Daily Multi-Vitamin) tablet Active 1 TABLET PO DAILY April 11, 2023 12:00am omeprazole 40 mg delayed release oral capsule (5 sources) Proton Pump Inhibitor Start: 03-12-2024 take 40 mg by mouth once daily Omeprazole Active 40 MG PO daily March 12, 2024 12:00am swallow whole; do not crush, chew, dissolve, cut, break Start: 09-20-2021 End: 01-28-2024 take 20 mg by mouth once daily Omeprazole Discontinued 20 MG PO DAILY September 20, 2021 12:00am January 28, 2024 10:39am sodium chloride flush 0.9 % injection 3 mL (1 source) Start: 11-13-2021 sodium chloride flush 0.9 % injection 3 mL 24 hr venlafaxine 75 mg extended release oral capsule (4 sources) Serotonin and Norepinephrine Reuptake Inhibitor Start: 09-05-2023 End: 10-09-2023 take 1 capsule by mouth once daily Venlafaxine (Effexor Xr) 75 mg capsule,extended release 24hr Active 75 MG PO DAILY October 09, 2023 12:44pm Completed/Discontinued Medications Medication Drug Class(es) Dates Sig (Normalized) Sig (Original) acetaminophen 325 mg oral capsule (4 sources) Start: 11-15-2021 End: 07-21-2023 take 2 capsules by mouth every four hours Acetaminophen (Tylenol) 325 mg Capsule Discontinued 650 MG PO Q4H November 15, 2021 1:00am July 21, 2023 10:21pm benzonatate 100 mg oral capsule (4 sources) Non-narcotic Antitussive Start: 06-01-2021 End: 09-20-2021 take 1 capsule by mouth twice daily Benzonatate (Tessalon Perles) 100 mg capsule Discontinued 100 MG PO TWICE A DAY June 01, 2021 12:00am September 20, 2021 3:39pm calcium carbonate 500 mg chewable tablet (4 sources) Start: 05-31-2020 End: 09-20-2021 take 200 mg by mouth four times daily Calcium Carbonate Discontinued 200 MG PO .QID May 31, 2020 12:00am September 20, 2021 3:39pm cephalexin 500 mg oral capsule (4 sources) Cephalosporin Antibacterial Start: 05-29-2021 End: 06-01-2021 take 500 mg by mouth every six hours Cephalexin Discontinued 500 MG PO EVERY 6 HOURS May 29, 2021 12:00am June 01, 2021 9:57am ciprofloxacin 500 mg oral tablet (2 sources) Quinolone Antimicrobial Start: 01-29-2024 End: 02-04-2024 take 500 mg by mouth twice daily Ciprofloxacin Hcl Discontinued 500 MG PO TWICE A DAY January 29, 2024 1:00am February 04, 2024 10:02am doxycycline hyclate 100 mg oral tablet (4 sources) Tetracycline-class Drug Start: 06-01-2021 End: 09-20-2021 take 100 mg by mouth twice daily Doxycycline Hyclate Discontinued 100 MG PO TWICE A DAY June 01, 2021 12:00am September 20, 2021 3:39pm hydrOXYzine hydrochloride 25 mg oral tablet (4 sources) Antihistamine Start: 09-05-2023 End: 01-28-2024 take 25 mg by mouth every eight hours Hydroxyzine Hcl Discontinued 25 MG PO Q8H September 05, 2023 11:38am January 28, 2024 10:39am Start: 09-05-2023 End: 09-05-2023 take 25 mg by mouth once daily Hydroxyzine Hcl Discont inued 25 MG PO DAILY September 05, 2023 12:00am September 05, 2023 11:39am imiquimod 50 mg/ml topical cream (8 sources) Start: 06-15-2020 End: 08-16-2020 Imiquimod Discontinued 1 APPLIC TOPICAL .3xw 12 June 17, 2020 7:36am August 16, 2020 8:10am metroNIDAZOLE 500 mg oral tablet (2 sources) Nitroimidazole Antimicrobial Start: 01-29-2024 End: 03-23-2024 take 500 mg by mouth every six hours Metronidazole Discontinued 500 MG PO EVERY 6 HOURS January 29, 2024 1:00am March 23, 2024 10:37am sertraline 50 mg oral tablet (4 sources) Serotonin Reuptake Inhibitor Start: 09-20-2021 End: 02-13-2022 take 50 mg by mouth once daily Sertraline Discontinued 50 MG PO daily September 20, 2021 12:00am February 13, 2022 4:31pm Problems Active Problems Problem Classification Problem Date Documented Da te Episodic/Chronic Alcohol-related disorders (4 sources) Alcohol intoxication; Translations: [Alcohol use, unspecified with intoxication, unspecified] 11-28-2021 Episodic Anxiety disorders (6 sources) Anxiety; Translations: [Anxiety disorder, unspecified] 11-02-2021 Chronic Cardiac dysrhythmias (8 sources) Paroxysmal supraventricular tachycardia; Translations: [Supraventricular tachycardia] 04-19-2023 Chronic Cardiac dysrhythmias (14 sources) Palpitations; Translations: [Palpitations] Episodic Conditions associated with dizziness or vertigo (4 sources) Dizziness; Translations: [Dizziness and giddiness] 02-12-2022 Episodic Esophageal disorders (3 sources) Gastroesophageal reflux disease; Translations: [Gastro-esophageal reflux disease without esophagitis] Onset: 03-12-2024 Chronic Gastrointestinal hemorrhage (4 sources) Lower gastrointestinal hemorrhage; Translations: [Gastrointestinal hemorrhage, unspecified] 01-29-2024 Episodic Immunizations and screening for infectious disease (3 sources) Requires tetanus and diphtheria vaccination; Translations: [Encounter for immunization] 07-21-2023 Episodic Lymphadenitis (4 sources) Lymphadenitis; Translations: [Nonspecific lymphadenitis, unspecified] 11-07-2021 Episodic Miscellaneous mental health disorders (2 sources) Anxiety about body function or health; Translations: [Other symptoms and signs involving emotional state] 11-07-2021 Episodic Mood disorders (5 sources) Moderate depressed bipolar I disorder; Translations: [Bipolar disorder, current episode depressed, moderate] 09-05-2023 Chronic Noninfectious gastroenteritis (2 sources) Colitis; Translations: [Noninfective gastroenteritis and colitis, unspecified] 01-29-2024 Episodic Nonspecific chest pain (4 sources) Chest pain; Translations: [Chest pain, unspecified] 02-12-2022 Episodic Open wounds of extremities (3 sources) Laceration of finger; Translations: [Laceration without foreign body of unspecified finger without damage to nail, initial encounter] 07-21-2023 Episodic Other and ill-defined heart disease (4 sources) Left cardiac ventricular dilatation; Translations: [Cardiomegaly] 01-17-2022 Chronic Other and unspecified benign neoplasm (2 sources) Polyp of colon; Translations: [Polyp of colon] 01-28-2024 Episodic Other congenital anomalies (4 sources) Pectus excavatum; Translations: [Pectus excavatum] 11-07-2021 Chronic Other congenital anomalies (2 sources) Pectus excavatum; Translations: [Pectus excavatum] 01-28-2024 Chronic Other nervous system disorders (1 source) Paresthesia of skin; Translations: [Paresthesia of skin] Onset: 5 Episodic Other non-traumatic joint disorders (1 source) Pain in left shoulder; Translations: [Pain in left shoulder] Onset: 5 Episodic Other upper respiratory disease (4 sources) Allergic rhinitis; Translations: [Allergic rhinitis, unspecified] 02-12-2022 Chronic Suicide and intentional self-inflicted injury (4 sources) Suicidal thoughts; Translations: [Suicidal ideations] 11-28-2021 Episodic Syncope (8 sources) Near syncope; Translations: [Syncope and collapse] 02-12-2022 Episodic Viral infection (4 sources) Condyloma acuminatum of the anogenital region; Translations: [Anogenital (venereal) warts] 11-07-2021 Episodic Past or Other Problems Problem Classification Problem Date Documented Da te Episodic/Chronic Abdominal pain (2 sources) Abdominal pain; Translations: [Unspecified abdominal pain] Onset: 02-03-2024 03-10-2024 Episodic Other and unspecified benign neoplasm (3 sources) Polyp of colon; Translations: [Benign neoplasm of colon] Onset: 01-28-2024 01-28-2024 Episodic Unclassified (4 sources) Abrasion of left wrist, initial encounter 11-28-2021 Results Test Name Value Interpretation Reference Range Facility Internal Medicine Office Vis iton 01-26-2025 Internal Medicine Office Visit [facility] [address] [place], [place] [address] OFFICE VISIT Date of Service: 01/26/25 MR#: [id number] Acct: [id number] Name: PENG LORA Rep #: [id number] : 2000 Provider: Dr. Michael Michael Br own, DO Age/Sex: 24/M Location: [facility] Status: Signed Intake Vital Signs 07/28/24 08:28 11/26/24 07:51 01/26/25 09:06 Height 6 ft 4 in 6 ft 4 in 6 ft 4 in Weight: 186 lb BMI 22.6 BP 138/78 H Blood Pressure Location Rt brachial Position Sitting Respiration 16 Pulse 16 L Pulse Source Monitor Temp 99.7 F H Temp Source Temporal Pulse Oximetry (%) 99 Oxygen Delivery Method room air Intake Visit Reasons: 6 M FU Chief Complaint: 6m f/u Director Of Capital Giving Required: No Accompanied by: Self Is patient in pain?: No Allergies cephalexin Allergy (Mild, Verified 01/26/25 09:02) Rash-Hives Penicillins (PCN) Allergy (Verified 01/26/25 09:02) Rash sertraline (From Zoloft) Adverse Reaction (Severe, Verified 01/26/25 09:02) Other Medications ???Medication ???Instructions ???Recorded ???Confirmed ???Type multivitamin (Daily Multi-Vitamin 1 tab PO DAILY 04/11/23 01/26/25 History tablet) metoprolol succinate 50 mg 50 mg PO DAILY PRN PALPITATION 01/26/25 History tablet,extended release 24 hr omeprazole 40 mg capsule,delayed 40 mg PO DAILY #30 caps 11/06/24 0 01/26/25 Rx release venlafaxine 150 mg 150 mg PO QDAY 01/26/25 01/26/25 H istory capsule,extended release 24 hr (Effexor XR) Have you fallen in the past year?: No Nurse's Note: 6 month follow up needs refills [facility] Medical History History of echocardiogram Hearing loss d/t noise Wears glasses Bipolar disorder Alcohol use Gastric reflux Smoker Cardiology follow-up encounter GERD (gastroesophageal reflux disease) History of suicidal ideation Left ventricular dilatation Pectus excavatum Non-sustained ventricular tachycardia Allergic rhinitis Anxiety Pre-syncope Chest pain Palpitations Inguinal lymphadenitis Condyloma acuminata Anxiety about health IBS (irritable bowel syndrome) Hearing problem Seasonal allergies Surgical History History of colonoscopy Family History Grandfather Cancer Parkinson disease Thyroid disorder Grandmother Cancer Osteoporosis Father Arthritis Myocardial infarction, Onset Age: 54 Cancer skin Spinal stenosis Heart disease atrial fib Mother Thyroid disorder Other CAD (coronary artery disease) Social History Smoking Status: Current some day smoker tobacco type: e-cigarettes alcohol intake: current alcohol intake frequency: a few times a week Alcohol type: beer substance use type: does not use what type of physical activity do you participate in: walking and running frequency: 3-4 times per week seatbelt use: always do you feel safe at home: Yes HPI HPI Chief Complaint: 6m f/u Details: PENG LORA, is a 24 M who presents to the office today for his 6-month follow-up exam. This patient started drinking very heavily again and checked himself into rehab. Unfortunately although he is not drinking excessively he still drinks occasionally and tells me he is afraid of stopping drinking because of problems he has had with seizures when he has tried to abstain completely. He does not drink the day before he goes into work so he has been able to pass drug screens that are set up for him to have done randomly. I think doing medical detox would be worthwhile but again he is really not willing to do it because what he perceives as risks. He no longer takes the metoprolol but takes propranolol on a as needed basis. His Ventralex if it has been increased 250 mg a day by a psychiatrist that he sees. ROS Const Constitutional: No body ache, excessive sweating, fatigue, fever(s), frequent falls, headache(s), snoring, weakness, weight change, sleep problems or change in appetite Eyes Eyes: No blurry vision, change in vision, eye pain or Light sensitivity ENT ENT: No abnormal hearing, ear or mastoid pain, tinnitus, nasal congestion, headache(s), neck pain or sore throat Resp Respiratory: No cough, shortness of breath, snoring or wheezing Cardio Cardiology: No chest pain at rest, chest pain with exertion, excessive sweating, shortness of breath, dyspnea on exertion, lightheadedness, orthopnea or palpitations Gastro GI: No abdominal pain, change in bowel habits, constipation, cramping, diarrhea, nausea/dyspepsia or vomiting Genitourinary Male: No burning urination, painful urination, urinary incontinence, urinary frequency or blood in urine (more content not included)... Normal [facility] Basic Metabolic Profile (BMP )on 11-26-2024 BUN/CRE 15.4 RATIO Normal - [facility] Comment on above: Performed By: #### L 500.2500, L100.0100 ####[facility] [id number] [place], [address] CA,Total 9.1 mg/dL Normal 8.5-10.1 [facility] Comment on above: Performed By: #### L 500.2500, L100.0100 ####[facility] [id number] [place], [address] Chloride [Moles/Vol] 102 mmol/L Normal 98-107 [facility] Comment on above: Performed By: #### L 500.2500, L100.0100 ####[facility] [id number] [place], [address] CO2 [Moles/Vol] 30.0 mmol/L Normal 21.0-32.0 [facility] Comment on above: Performed By: #### L 500.2500, L100.0100 ####[facility] [id number] [place], [address] Creatinine [Mass/Vol] 0.84 mg/dL Normal 0.70-1.30 [facility] Comment on above: Result Comment: The validity of the calculated GFR GFRAA in patients over 70 years has not been determined. Clinical correlation is essential. Performed By: #### L 500.2500, L100.0100 ####[facility] [id number] [place], [address] EST GFR - AA 143 mL/min Normal >60 [facility] Comment on above: Result Comment: Afri can Maldivian GFR Calc Performed By: #### L 500.2500, L100.0100 ####[facility] [id number] [place], [address] GAP 5 Normal 5-15 [facility] Comment on above: Performed By: #### L 500.2500, L100.0100 ####[facility] [id number] [place], [address] GFR/1.73 sq M.predicted among non-blacks MDRD (S/P/Bld) [Vol rate/Area] 118 mL/min/{1.73_m2} Normal >60 [facility] Comment on above: Result Comment: Non- GFR Calc Performed By: #### L 500.2500, L100.0100 ####[facility] [id number] [place], [address] Glucose [Mass/Vol] 127 mg/dL High 74-106 [facility] Comment on above: Result Comment: Fast ing Glucose result greater than or equal to 126 mg/dL suggests DIABETES MELLITUS per A.D.A. criteria. Performed By: #### L 500.2500, L100.0100 ####[facility] [id number] [place], [address] Potassium [Moles/Vol] 3.9 mmol/L Normal 3.5-5.1 [facility] Comment on above: Performed By: #### L 500.2500, L100.0100 ####[facility] [id number] [place], [address] Sodium [Moles/Vol] 137 mmol/L Normal 136-145 [facility] Comment on above: Performed By: #### L 500.2500, L100.0100 ####[facility] [id number] [place], [address] Urea nitrogen [Mass/Vol] 13 mg/dL Normal 7-18 [facility] Comment on above: Performed By: #### L 500.2500, L100.0100 ####[facility] [id number] [place], [address] Brain/Head without Contrasto n 11-26-2024 Brain/Head without Contrast [facility] Imaging Services [address] [place] [address] Brain/Head without Contrast MR#: [id number] Acct: [id number] Name: PENG LORA Rep #: [id number] : 2000 M 24 From: Alberto Baltazar MD PCP: Dr. Michael Spencer, Status: REG ER Study: Brain/Head without Contrast Date of Exam: 11/02 05/25 Exam# [id number] Ordering [place]: [place] [id number] STUDY: CT BRAIN WITHOUT CONTRAST REASON FOR EXAM: Male, 24 years old. Left paresthesias RADIATION DOSAGE (If Supplied By Facility): CTDIvol = ( 44.99 ) mGy, DLP = ( 779.24 ) mGycm TECHNIQUE: Transaxial CT imaging of the brain was performed without administration of intravenous contrast material. Individualized dose optimization techniques were used for this CT. COMPARISON: No relevant priors. FINDINGS: Normal soft tissue structures. Normal calvarium. Normal size ventricles and extra-axial spaces for the patient''s age. Normal white matter tracts of the cerebral hemispheres. Normal basal ganglia and thalami. Normal brainstem. Normal cerebellum. There is no intracranial hemorrhage. There are no findings of an acute ischemic infarction. Normal visualized paranasal sinuses. CT/Brain/Head without Contrast IMPRESSION: Normal unenhanced CT scan of the brain. Electronically Signed: Alberto Baltazar MD at 9:16 EST , CC: Dr. Dakota Jarquin, DO; Dr. Michael Spencer, DO College Archivist: Signed Normal [facility] CBC W/Diff, Automatedon 12-2 Absolute Lymph 0.91 X10 3/uL Normal 0.83-4.51 [facility] Comment on above: Performed By: #### L 500.2500, L100.0100 ####[facility] [id number] [place], [address] Absolute Neut 9.3 X10 3/uL High 2.0-7.7 [facility] Comment on above: Performed By: #### L 500.2500, L100.0100 ####[facility] [id number] [place], [address] Basophils/100 WBC (Bld) 0.6 % Normal 0-1 [facility] Comment on above: Performed By: #### L 500.2500, L100.0100 ####[facility] [id number] [place], [address] Eosinophils/100 WBC (Bld) 0.4 % Normal 0-5 [facility] Comment on above: Performed By: #### L 500.2500, L100.0100 ####[facility] [id number] [place], [address] Erythrocyte distribution width (RBC) [Ratio] 11.8 % Normal 11.6-14.6 [facility] Comment on above: Performed By: #### L 500.2500, L100.0100 ####[facility] [id number] [place], [address] Hematocrit (Bld) [Volume fraction] 44.0 % Normal 40-54 [facility] Comment on above: Performed By: #### L 500.2500, L100.0100 ####[facility] [id number] [place], [address] Hemoglobin (Bld) [Mass/Vol] 15.4 g/dL Normal 13.0-16.5 [facility] Comment on above: Performed By: #### L 500.2500, L100.0100 ####[facility] [id number] [place], [address] IG% 0.500 Normal 0.0-0.9 [facility] Comment on above: Result Comment: IG% - Immature Granulocytes (promyelocytes, myelocytes and metamyelocytes) > 1% indicates that a LEFT SHIFT is Present. Performed By: #### L 500.2500, L100.0100 ####[facility] [id number] [place], [address] Lymphocytes/100 WBC (Bld) 8.3 % Low 19-41 [facility] Comment on above: Performed By: #### L 500.2500, L100.0100 ####[facility] [id number] [place], [address] MCH (RBC) [Entitic mass] 31.7 pg Normal 27.0-32.0 [facility] Comment on above: Performed By: #### L 500.2500, L100.0100 ####[facility] [id number] [place], [address] MCHC (RBC) [Mass/Vol] 35.0 g/dL Normal 32-36 [facility] Comment on above: Performed By: #### L 500.2500, L100.0100 ####[facility] [id number] [place], [address] MCV (RBC) [Entitic vol] 90.5 fL Normal 80-94 [facility] Comment on above: Performed By: #### L 500.2500, L100.0100 ####[facility] [id number] [place], [address] Monocytes/100 WBC (Bld) 6.3 % Normal 0-10 [facility] [facility] Comment on above: Performed By: #### L 500.2500, L100.0100 ####[facility] [id number] [place], [address] Neutrophils/100 WBC (Bld) 83.9 % High 47-70 [facility] Comment on above: Performed By: #### L 500.2500, L100.0100 ####[facility] [id number] [place], [address] Nucleated RBC (Bld) [#/Vol] 0 10*3/uL Normal 0-5 [facility] Comment on above: Performed By: #### L 500.2500, L100.0100 ####[facility] [id number] [place], [address] Platelet mean volume (Bld) [Entitic vol] 9.4 fL Normal 6.2-12.0 [facility] Comment on above: Performed By: #### L 500.2500, L100.0100 ####[facility] [id number] [place], [address] Platelets (Bld) [#/Vol] 373 10*3/uL Normal 150-450 [facility] Comment on above: Performed By: #### L 500.2500, L100.0100 ####[facility] [id number] [place], [address] RBC (Bld) [#/Vol] 4.86 10*6/uL Normal 4.6-6.2 [facility] Comment on above: Performed By: #### L 500.2500, L100.0100 ####[facility] [id number] [place], [address] RDW SD 39.3 fl Normal 35.1-43.9 [facility] Comment on above: Performed By: #### L 500.2500, L100.0100 ####[facility] [id number] [place], [address] WBC (Bld) [#/Vol] 11.0 10*3/uL Normal 4.4-11.0 [facility] Comment on above: Performed By: #### L 500.2500, L100.0100 ####[facility] [id number] [place], [address] Emergency Department Summary on 11-26-2024 Emergency Department Summary [facility] Medical Records Department [address] [place] [address] Emergency Department Summary 11/26/24 MR#: [id number] Acct: [id number] Name: PENG LORA Rep #: [id number] : 2000 24 From: Dakota Jarquin DO PCP: Dr. Michael Spencer DO Status:DEP ER Location: ED HPI History of Present Illness Chief Complaint: Upper Extremity Injury Informant: patient Narrative Narrative: 24-year-old male presenting to the emergency room with left posterior shoulder pain and left arm paresthesias. Patient states he was seen in emergency yesterday with left facial paresthesias. He states that over the past several days his entire left face is numb. This is different than what was described to the ED physician yesterday. In either case patient states that that is unchanged he has not developed any facial weakness or visual changes. He has not developed a rash. When he awoke today he had pain in the left posterior shoulder near his scapula and his left arm felt numb. Now he notes intermittent pain shooting into the arm. No left arm weakness no leg symptoms. No chest pain. No dyspnea. He notes occasional charley horses in his feet. He states he called his primary care doctor and was sent to emergency. [facility] Medical History History of echocardiogram Hearing loss d/t noise Wears glasses Bipolar disorder Alcohol use Gastric reflux Smoker Cardiology follow-up encounter GERD (gastroesophageal reflux disease) History of suicidal ideation Left ventricular dilatation Pectus excavatum Non-sustained ventricular tachycardia Allergic rhinitis Anxiety Pre-syncope Chest pain Palpitations Inguinal lymphadenitis Condyloma acuminata Anxiety about health IBS (irritable bowel syndrome) Hearing problem Seasonal allergies Home Medications ???Medication ???Instructions ???Recorded ???Last Taken ???Type multivitamin (Daily Multi-Vitamin 1 tab PO DAILY 04/11/23 Unknown History tablet) metoprolol succinate 50 mg 50 mg PO DAILY PRN PALPITATION 03/23/24 Unknown History tablet,extended release 24 hr venlafaxine 75 mg capsule,extended 75 mg PO DAILY #90 caps 07/28/24 Unknown Rx release 24 hr omeprazole 40 mg capsule,delayed 40 mg PO DAILY #30 caps 11/06/24 Unknown Rx release Allergy/AdvReac Type Severity Reaction Status Date / Time cephalexin Allergy Mild Rash-Hives Verified 11/26/24 07:52 Penicillins (PCN) Allergy Rash Verified 11/26/24 07:52 sertraline (From Zoloft) AdvReac Severe Other Verified 11/26/24 07:52 Family History Grandfather Cancer Parkinson disease Thyroid disorder Grandmother Cancer Osteoporosis Father Arthritis Myocardial infarction, Onset Age: 54 Cancer skin Spinal stenosis Heart disease atrial fib Mother Thyroid disorder Other CAD (coronary artery disease) Surgical History History of colonoscopy Social History Smoking Status: Current some day smoker tobacco type: e-cigarettes alcohol intake: current alcohol intake frequency: a few times a week Alcohol type: beer substance use type: does not use what type of physical activity do you participate in: walking and running frequency: 3-4 times per week seatbelt use: always do you feel safe at home: Yes ROS ROS ED Constitutional Constitutional ED: Denies chills, fever(s) or weight loss Eyes Eyes: Denies change in vision or diplopia ENT ENT ED: Denies ear pain, rhinorrhea or sore throat Cardiovascular Cardiovascular: Denies chest pain, orthopnea, palpitations or racing heartbeat Respiratory/Chest Respiratory/Chest: Denies cough, dyspnea or orthopnea Gastrointestinal Gastrointestinal: Denies abdominal pain, diarrhea, nausea or vomiting Genitourinary Genitourinary ED: Denies dysuria, hematuria or urinary frequency Musculoskeletal Musculoskeletal: Reports back pain; Denies arthralgias or myalgias Integumentary Denies abscess or rash Neurologic Neurologic: Reports paresthesias; Denies headache(s) or weakness Psychiatric Psychiatric: Denies anxiety, depression, suicidal ideation or suicidal thoughts Endocrine Endocrinology: Denies polydipsia, polyphagia or polyuria Allergic/Immunologic Allergic/Immunologic ED: Denies mouth swelling, tongue swelling or urticaria EXAM Physical Exam Const Vital Signs: 11/26/24 07:51 Temperature 96.9 F L Temperature Source Temporal Pulse Rate 73 Respiratory Rate 14 Blood Pressure 154/114 H Blood Pressure Mean 127 Pulse Ox 98 Oxygen Delivery Method Room Air Positive well nourished and well developed General Appearance ED: well (more content not included)... Normal [facility] Spine Cervical without Contr ason 11-26-2024 Spine Cervical without Contras [facility] Imaging Services [address] [place], [place] [address] Spine Cervical without Contras MR#: [id number] Acct: [id number] Name: PENG LORA Rep #: [id number] : 2000 24 From: Alberto Baltazar MD PCP: Dr. Michael Spencer, DO Status: REG ER Study: Spine Cervical without Contras Date of Exam: 01/27/24 Exam# [id number] Ordering [place]: [place] [id number] STUDY: CT CERVICAL SPINE WITHOUT CONTRAST REASON FOR EXAM: Male, 24 years old. pain RADIATION DOSAGE (If Supplied By Facility): CTDIvol = ( 17.71 ) mGy, DLP = ( 416.90 ) mGycm TECHNIQUE: High resolution transaxial imaging was performed without contrast material. Sagittal and coronal images were reconstructed. Individualized dose optimization techniques were used for this CT. COMPARISON: None FINDINGS: Normal craniovertebral junction. Normal anterior atlantoaxial articulation. Normal odontoid process. Normal cervical lordosis. Normal vertebral bodies and posterior osseous elements. C2-3: Normal endplates. Normal disc height and morphology. Normal central canal and intervertebral neuroforamina. C3-4: Normal endplates. Normal disc height and morphology. Normal central canal and intervertebral neuroforamina. C4-5: Normal endplates. Normal disc height and morphology. Normal central canal and intervertebral neuroforamina. C5-6: Normal endplates. Normal disc height and morphology. Normal central canal and intervertebral neuroforamina. C6-7: Normal endplates. Normal disc height and morphology. Normal central canal and intervertebral neuroforamina. C7-T1: Normal endplates. Normal disc height and morphology. Normal central canal and intervertebral neuroforamina. Normal visualized soft tissue structures. CT/Spine Cervical without Contras IMPRESSION: Normal unenhanced CT examination of the cervical spine. Electronically Signed: Alberto Baltazar MD at 9:19 EST , CC: Dr. Dakota Jarquin DO; Dr. Michael Spencer DO College Archivist: Signed Normal [facility] Emergency Department Summary on 11-25-2024 Emergency Department Summary [facility] Medical Records Department [address] [place] [address] Emergency Department Summary 11/25/24 MR#: [id number] Acct: [id number] Name: PENG LORA Rep #: [id number] : 2000 24 From: Lowell Leiva PCP: Dr. Michael Spencer DO Status:DEP ER Location: ED HPI History of Present Illness Chief Complaint: Numb/Ting Informant: patient Narrative Narrative: Presents here after waking at 5:30 AM numbness left ear and left jaw this been persistent. No history of similar. No ear pain face pain. No headaches. Denies hemiparesis arms or legs. No history of similar. No speech changes. History of bipolar and GERD on medications. Family history in a first cousin having multiple sclerosis on his dad side. Prior similar symptoms: No PFSH PFSH Medical History History of echocardiogram Hearing loss d/t noise Wears glasses Bipolar disorder Alcohol use Gastric reflux Smoker Cardiology follow-up encounter GERD (gastroesophageal reflux disease) History of suicidal ideation Left ventricular dilatation Pectus excavatum Non-sustained ventricular tachycardia Allergic rhinitis Anxiety Pre-syncope Chest pain Palpitations Inguinal lymphadenitis Condyloma acuminata Anxiety about health IBS (irritable bowel syndrome) Hearing problem Seasonal allergies Home Medications ???Medication ???Instructions ???Recorded ???Last Taken ???Type multivitamin (Daily Multi-Vitamin 1 tab PO DAILY 04/11/23 Unknown History tablet) metoprolol succinate 50 mg 50 mg PO DAILY PRN PALPITATION 03/23/24 Unknown History tablet,extended release 24 hr venlafaxine 75 mg capsule,extended 75 mg PO DAILY #90 caps 07/28/24 Unknown Rx release 24 hr omeprazole 40 mg capsule,delayed 40 mg PO DAILY #30 caps 11/06/24 Unknown Rx release Allergy/AdvReac Type Severity Reaction Status Date / Time cephalexin Allergy Mild Rash-Hives Verified 11/25/24 15:54 Penicillins (PCN) Allergy Rash Verified 11/25/24 15:54 sertraline (From Zoloft) AdvReac Severe Other Verified 11/25/24 15:54 Family History Grandfather Cancer Parkinson disease Thyroid disorder Grandmother Cancer Osteoporosis Father Arthritis Myocardial infarction, Onset Age: 54 Cancer skin Spinal stenosis Heart disease atrial fib Mother Thyroid disorder Other CAD (coronary artery disease) Surgical History History of colonoscopy Social History Smoking Status: Current some day smoker tobacco type: e-cigarettes alcohol intake: current alcohol intake frequency: a few times a week Alcohol type: beer substance use type: does not use what type of physical activity do you participate in: walking and running frequency: 3-4 times per week seatbelt use: always do you feel safe at home: Yes ROS ROS ED Constitutional Constitutional ED: Denies chills, fever(s) or sweats ENT ENT ED: Denies sore throat Cardiovascular Cardiovascular: Denies chest pain, leg edema, palpitations or racing heartbeat Respiratory/Chest Respiratory/Chest: Denies cough, dyspnea or dyspnea on exertion Gastrointestinal Gastrointestinal: Denies abdominal pain, diarrhea, nausea or vomiting Genitourinary Genitourinary ED: Denies dysuria, hematuria or urinary frequency Musculoskeletal Musculoskeletal: Denies back pain, extremity pain or neck pain Integumentary Denies rash or wounds Neurologic Neurologic: Reports paresthesias; Denies headache(s) or weakness EXAM Physical Exam Const Vital Signs: 11/25/24 15:54 Temperature 97 F L Temperature Source Temporal Pulse Rate 106 H Respiratory Rate 20 H Blood Pressure 142/100 H Blood Pressure Mean 114 Pulse Ox 100 Oxygen Delivery Method Room Air Positive well nourished and well developed General Appearance ED: well developed and NAD HEENT Reports moist mucous membranes normocephalic and atraumatic Eyes General Eye ED: Yes normal appearance of both eyes Neck full ROM Chest Wall Chest: Negative for tenderness Resp normal respiratory effort and normal air movement Effort and Inspection: symmetric chest movement; Negative for respiratory distress Cardio regular rate, regular rhythm and no murmurs Peripheral Pulses: pulses 2+ throughout GI normal to inspection, nondistended, normoactive bowel sounds and non-tender Palpation: Negative for guarding or rebound tenderness present Extremity normal to inspection General Extremety ED: Negative for edema or tenderness General Extremity: Negative for edema Neuro oriented x3 and no sensory deficits noted Sensorium / Orientation: awake and alert Skin (more content not included)... Normal [facility] ED NOTEon 09-03-2024 ED NOTE HNO ID: [id number] Author: JASMEET MANRIQUEZ LPN Service: Emergency Medicine Author Type: LICENSED NURSE Type: ED Notes Filed: 09/03/2024 12:58 Note Text: States no symptoms last drink today 3 hours DATA PROCESSING CLERK [facility] ED NOTE HNO ID: [id number] Author: CHERELLE STAPLETON RN Service: Nursing Author Type: Registered Nurse Type: ED Notes Filed: 09/03/2024 12:55 Note Text: Recovery in Reach Note: Meeting Peng and his significant other in room. He is here to seek out detox, has never been to treatment of any kind before. Has several questions about detox and the different levels of care and time frames of each. He drinks daily at least 6 beer or more a day. Has been drinking since 2016, daily. He works fulltime and carries insurance, so after questions answered and he has a better understanding of what takes place during the different levels of care and inpatient versus outpatient, we start by calling his insurance to check on his benefits and which places are in network and then he calls and speaks with his boss. 5 places to call, so he starts calling. Ending up with [facility] about an hour and half away from here. Completes phone assessment and also gets to talk with financial services and makes sure he does not have to place any money down today. Also his mom and significant other will be driving him there. [facility] do not need any paperwork from the ER, so RN updating staff of this. [facility] ED PROV NOTEon 09-03-2024 ED PROV NOTE HNO ID: [id number] Author: HAKAN HEBERT PA-C Service: Emergency Medicine Author Type: Physician Health Information Manager Type: ED Provider Notes Filed: 09/03/2024 13:18 Note Text: ED Provider Note Patient Name: Peng Lora : 2000 SERVICE DATE: 09/03/24 History Patient presents with: Alcohol Problem: Pt states wants to get into detox for alcohol withdrawal states last drink 0900 today Peng is a 24-year-old male presenting to the emergency room today for detox for alcohol withdrawal. He states that he has had at least 1 drink every single day since 2016. Patient states that he has been on a 3-day echeverria where he was drinking a lot every day. States his last drink was at 9 AM this morning. He states he wants to take control of his life and has noticed how much alcohol is negatively impacting his life. He states he feels generally unwell and jittery. He denies suicidal, homicidal thoughts, confusion, nausea/vomiting, hematemesis, blood in stool, constipation/diarrhea, abdominal pain, chest pain, easy bleeding/bruising, tremors, palpitations, headache, seizures, jaundice, acholic stools, dark urine, other drug use. PAST MEDICAL HISTORY Diagnosis Date Palpitations No past surgical history on file. No family history on file. Social History Tobacco Use Smoking status: Not on file Smokeless tobacco: Not on file Substance and Sexual Activity Alcohol use: Not on file Drug use: Not on file Sexual activity: Not on file ALLERGIES Allergen Reactions Zoloft [Sertraline] Mental Status Change Suicidal ideation with attempt Cephalexin Rash Review of Systems Constitutional: Positive for fatigue (with malaise and jittery). Negative for activity change, appetite change, chills, diaphoresis and fever. HENT: Negative for dental problem, drooling, ear pain, facial swelling, postnasal drip, sinus pressure, sinus pain, sore throat, trouble swallowing and voice change. Eyes: Negative for photophobia, pain, redness and itching. Respiratory: Negative for apnea, cough, choking, chest tightness and shortness of breath. Cardiovascular: Negative for chest pain, palpitations and leg swelling. Gastrointestinal: Negative for abdominal distention, abdominal pain, blood in stool, constipation, diarrhea, nausea and vomiting. Genitourinary: Negative for difficulty urinating, dysuria, flank pain, hematuria and urgency. Musculoskeletal: Negative for arthralgias, back pain, gait problem, joint swelling, myalgias, neck pain and neck stiffness. Skin: Negative for color change, pallor, rash and wound. Neurological: Negative for dizziness, tremors, seizures, syncope, facial asymmetry, speech difficulty, weakness, light-headedness, numbness and headaches. Psychiatric/Behavioral: Negative for agitation, behavioral problems, confusion, dysphoric mood, self-injury and suicidal ideas. The patient is not nervous/anxious and is not hyperactive. Physical Exam Vitals [09/03/24 1053] BP Pulse Temp Temp src Resp SpO2 Weight Height 160/95 (!) 101 36 ?C (96.8 ?F) -- 20 99 % 79.4 kg (175 lb) 1.93 m (6' 4) Physical Exam Constitutional: General: He is not in acute distress. Appearance: Normal appearance. He is not ill-appearing, toxic-appearing or diaphoretic. HENT: Head: Normocephalic and atraumatic. Right Ear: Tympanic membrane, ear canal and external ear normal. Left Ear: Tympanic membrane, ear canal and external ear normal. Nose: Nose normal. Mouth/Throat: Mouth: Mucous membranes are moist. Pharynx: Oropharynx is clear. Eyes: Extraocular Movements: Extraocular movements intact. Conjunctiva/sclera: Conjunctivae normal. Pupils: Pupils are equal, round, and reactive to light. Cardiovascular: Rate and Rhythm: Regular rhythm. Tachycardia present. Pulses: Normal pulses. Heart sounds: Normal heart sounds. Comments: HR 104 bpm Pulmonary: Effort: Pulmonary effort is normal. Breath sounds: Normal breath sounds. Abdominal: General: Abdomen is flat. Bowel sounds are normal. Palpations: There is hepatomegaly. There is no shifting dullness, fluid wave, splenomegaly, mass or pulsatile mass. Tenderness: There is no abdominal tenderness. Hernia: No hernia is present. Musculoskeletal: General: No swelling or tenderness. Cervical back: Normal range of motion and neck supple. No rigidity or tenderness. Skin: General: Skin is warm and dry. Capillary Refill: Capillary refill takes less than 2 seconds. Coloration: Skin is not pale. Findings: No bruising, erythema, lesion or rash. Neurological: General: No focal deficit present. Mental Status: He is alert and oriented to person, place, and time. Psychiatric: Mood and Affect: Mood normal. Behavior: Behavior normal. Diagnostic Testing ED Labs Ordered and Reviewed - No data to display Procedures ED Course / Clinical Impression Clinical Impressions as of 09/03/24 1240 Alcohol withdrawal syndro (more content not included)... [facility] Internal Medicine Office Vis ilya 07-28-2024 Internal Medicine Office Visit [facility] [address] [address] OFFICE VISIT Date of Service: 07/28/24 MR#: [id number] Acct: [id number] Name: PENG LORA Rep #: [id number] : 2000 Provider: Dr. Michael amor, DO Age/Sex: 24/M Location: [facility] Status: Signed Intake Vital Signs 01/28/24 09:34 03/27/24 10:11 07/28/24 08:28 Height 6 ft 4 in 6 ft 4 in 6 ft 4 in Weight: 184 lb BMI 22.4 BP 134/84 H Blood Pressure Location Lt brachial Position Sitting Respiration 16 Pulse 106 H Pulse Source Palpation Temp 97.7 F L Temp Source Temporal Oxygen Delivery Method room air Intake Visit Reasons: 6 M FU Chief Complaint: 6m f/u Director Of Capital Giving Required: No Accompanied by: Self Is patient in pain?: No Allergies cephalexin Allergy (Mild, Verified 07/28/24 08:26) Rash-Hives Penicillins (PCN) Allergy (Verified 07/28/24 08:26) Rash sertraline (From Zoloft) Adverse Reaction (Severe, Verified 07/28/24 08:26) Other Medications ???Medication ???Instructions ???Recorded ???Confirmed ???Type multivitamin (Daily Multi-Vitamin 1 tab PO DAILY 04/11/23 07/28/24 History tablet) omeprazole 40 mg capsule,delayed 40 mg PO QDAY #30 caps 03/12/24 07/28/24 Rx release metoprolol succinate 50 mg 50 mg PO DAILY PRN PALPITATION 03/23/24 07/28/24 History tablet,extended release 24 hr venlafaxine 75 mg capsule,extended 75 mg PO DAILY #90 caps 07/28/24 07/28/24 Rx release 24 hr PFSH Medical History History of echocardiogram Hearing loss d/t noise Wears glasses Bipolar disorder Alcohol use Gastric reflux Smoker Cardiology follow-up encounter GERD (gastroesophageal reflux disease) History of suicidal ideation Left ventricular dilatation Pectus excavatum Non-sustained ventricular tachycardia Allergic rhinitis Anxiety Pre-syncope Chest pain Palpitations Inguinal lymphadenitis Condyloma acuminata Anxiety about health IBS (irritable bowel syndrome) Hearing problem Seasonal allergies Surgical History History of colonoscopy Family History Grandfather Cancer Parkinson disease Thyroid disorder Grandmother Cancer Osteoporosis Father Arthritis Myocardial infarction, Onset Age: 54 Cancer skin Spinal stenosis Heart disease atrial fib Mother Thyroid disorder Other CAD (coronary artery disease) Social History Smoking Status: Current some day smoker tobacco type: e-cigarettes alcohol intake: current alcohol intake frequency: a few times a week Alcohol type: beer substance use type: does not use what type of physical activity do you participate in: walking and running frequency: 3-4 times per week seatbelt use: always do you feel safe at home: Yes HPI HPI Chief Complaint: 6m f/u Details: PENG LORA, is a 24 M who presents to the office today for a 6-month follow-up exam. He is actually doing very well although he has some episodes that require some therapy which she is receiving from a psychologist in [facility]. He has been out of his viloxazine for 3 days and is starting to feel the side effects of that withdrawal. He has been working on a regular basis but does have occasional days he is not able to work and needs an FMLA form filled out. He is recently back from a 10-day vacation in [place] and looks very rested. ROS Const Constitutional: No body ache, chills, excessive sweating, fatigue, fever(s), frequent falls, headache(s), snoring, weakness or change in appetite Eyes Eyes: No blurry vision, change in vision, eye pain or Light sensitivity ENT ENT: No abnormal hearing, ear or mastoid pain, tinnitus, nasal congestion, headache(s), neck pain or sore throat Resp Respiratory: No cough, shortness of breath, snoring or wheezing Cardio Cardiology: No chest pain at rest, chest pain with exertion, excessive sweating, dyspnea on exertion, lightheadedness, orthopnea or palpitations Gastro GI: No abdominal pain, change in bowel habits, constipation, cramping, diarrhea, nausea/dyspepsia or vomiting Genitourinary Male: No burning urination, painful urination, urinary incontinence or urinary frequency Musc Musculoskeletal: No abnormal gait, joint pain, back pain, limited range of motion, muscle weakness, neck pain or numbness Skin Skin: No dry skin, redness, lesions, itchy eyes, rash or wounds Neuro Neurology: No abnormal gait, abnormal hearing, weakness, frequent falls, headache(s), memory loss or numbness Psych Psychiatric: No anxiety, No change in appetite, No depression, No memory loss and No Thoughts of harming yourself/Others Endo Endocrine: No cold i (more content not included)... Normal [facility] Colonoscopy Reporton 024 Colonoscopy Report [facility] Medical Records Department [address] [place] [address] Colonoscopy Report MR#: [id number] Acct: [id number] Name: PENG LORA Rep #: [id number] : 2000 23 From: Estee Leyva MD PCP: Dr. Michael Spencer, DO Status[place] [place] Name: Peng Lora Procedure Date: 03/27/2024 10:59 AM Date of : 2000 Age: 23 Procedure: Colonoscopy Indications: Rectal bleeding Providers: Estee Leyva MD Medicines: Monitored Anesthesia Care Patient Profile: This is a 23 year old male. Last Colonoscopy: 2017. Complications: No immediate complications. Procedure: Pre-Anesthesia Assessment: - Prior to the procedure, a History and Physical was performed, and patient medications and allergies were reviewed. The patient's tolerance of previous anesthesia was also reviewed. The risks and benefits of the procedure and the sedation options and risks were discussed with the patient. All questions were answered, and informed consent was obtained. Prior Anticoagulants: The patient has taken no anticoagulant or antiplatelet agents. ASA Grade Assessment: Per anesthesia. After reviewing the risks and benefits, the patient was deemed in satisfactory condition to undergo the procedure. After I obtained informed consent, the scope was passed under direct vision. Throughout the procedure, the patient's blood pressure, pulse, and oxygen saturations were monitored continuously. The Colonoscope was introduced through the anus and advanced to the terminal ileum. The colonoscopy was performed without difficulty. The patient tolerated the procedure well. The quality of the bowel preparation was good. Scope In: 11:00:21 AM Scope Withdrawal Time 0 hours 8 minutes 35 seconds Scope Out: 11:14:37 AM Total Procedure Duration Time 0 hours 14 minutes 16 seconds Findings: Non-bleeding internal hemorrhoids were found. The hemorrhoids were Grade I (internal hemorrhoids that do not prolapse). The entire examined colon appeared normal. The terminal ileum appeared normal. Impression: - Non-bleeding internal hemorrhoids. - The entire examined colon is normal. - The examined portion of the ileum was normal. - No specimens collected. Recommendation: - Discharge patient to home. - Resume previous diet. - Continue present medications. - Repeat colonoscopy in 10 years for screening purposes. Procedure Code(s): --- Professional --- 19194, Colonoscopy, flexible; diagnostic, including collection of specimen(s) by brushing or washing, when performed (separate procedure) Diagnosis Code(s): --- Professional --- K64.0, First degree hemorrhoids K62.5, Hemorrhage of anus and rectum CPT copyright 2021 [employer]. All rights reserved. The codes documented in this report are preliminary and upon residential direct support professional review may be revised to meet current compliance requirements. MD Estee Duran MD 03/27/2024 11:25:12 AM This report has been signed electronically. Number of Addenda: 0 Note Initiated On: 03/27/2024 10:59 AM 03/27/24 1125 Date Estee Leyva MD Cosigner Signature: Date (if indicated) CC: Dr. Michael Spencer DO; Dr. Estee Leyva MD Date Dictated: 03/27/24 1059 Date Transcribed: College Archivist: GUS Signed Normal [facility] EGD Reporton 03-27-2024 EGD Report [facility] Medical Records Department [address] [place] [address] EGD Report MR#: [id number] Acct: [id number] Name: PENG LORA Rep #: [id number] : 2000 23 From: Estee Leyva MD PCP: Dr. Michael Spencer DO Status:[facility] Patient Name: Peng Lora Procedure Date: 03/27/2024 10:36 AM Date of : 2000 Age: 23 Procedure: Upper GI endoscopy Indications: Heartburn Providers: Estee Leyva MD Medicines: Monitored Anesthesia Care Patient Profile: This is a 23 year old male. Complications: No immediate complications. Procedure: Pre-Anesthesia Assessment: - Prior to the procedure, a History and Physical was performed, and patient medications and allergies were reviewed. The patient's tolerance of previous anesthesia was also reviewed. The risks and benefits of the procedure and the sedation options and risks were discussed with the patient. All questions were answered, and informed consent was obtained. Prior Anticoagulants: The patient has taken no anticoagulant or antiplatelet agents. ASA Grade Assessment: Per anesthesia. After reviewing the risks and benefits, the patient was deemed in satisfactory condition to undergo the procedure. After obtaining informed consent, the endoscope was passed under direct vision. Throughout the procedure, the patient's blood pressure, pulse, and oxygen saturations were monitored continuously. The Colonoscope was introduced through the mouth, and advanced to the second part of duodenum. The upper GI endoscopy was accomplished without difficulty. The patient tolerated the procedure well. Scope In: 10:55:41 AM Scope Out: 10:58:37 AM Total Procedure Duration Time 0 hours 2 minutes 56 seconds Findings: The Z-line was variable. The cardia and gastric fundus were normal on retroflexion. Mildly erythematous mucosa without bleeding was found in the gastric antrum. Biopsies were taken with a cold forceps for histology. Biopsies were taken with a cold forceps for Helicobacter pylori cultures. The examined duodenum was normal. No gross lesions were noted in the entire esophagus. Impression: - Z-line variable. - Erythematous mucosa in the antrum. Biopsied. - Normal examined duodenum. - No gross lesions in the entire esophagus. Recommendation: - Await pathology results. - Discharge patient to home. - Resume previous diet. - Use Prilosec (omeprazole) 40 mg PO daily. - Continue present medications. Procedure Code(s): --- Professional --- 45230, Esophagogastroduodenosc opy, flexible, transoral; with biopsy, single or multiple Diagnosis Code(s): --- Professional --- K22.89, Other specified disease of esophagus K31.89, Other diseases of stomach and duodenum R12, Heartburn CPT copyright 2021 [employer]. All rights reserved. The codes documented in this report are preliminary and upon residential direct support professional review may be revised to meet current compliance requirements. MD Estee Duran MD 03/27/2024 11:22:32 AM This report has been signed electronically. Number of Addenda: 0 Note Initiated On: 03/27/2024 10:36 AM 03/27/24 1122 Date Estee Leyva MD Cosigner Signature: Date (if indicated) CC: Dr. Michael Spencer, DO; Dr. Estee Leyva MD Date Dictated: 03/27/24 1036 Date Transcribed: College Archivist: TR Signed Normal [facility] H Pylori (initial)on 024 H Pylori (initial) Patient Age/Sex Location Account Attending Physician PENG LORA 23/M EN [id number] Dr. Estee Leyva MD Specimen: [id number] Received: 03/27/24 Status: LIA Berg Num: [id number] Spec Type: IMMUNO Subm Dr: Dr. Estee Leyva MD PHYSICIAN INSTITUTION [place] [address] SPECIMEN INFORMATION: Tissue Source: Gastric antrum Clinical Info: GERD, Blood per rectum Specimen Number: [id number] CPT code: 21908 METHODOLOGY: Deparaffinized sections of prefer/formalin-fixed tissue or PAP/DQ stained slides are incubated with monoclonal/polyclonal antibodies/oligonucleot rosalva probes. Localization is made via biotin free immunoperoxidase method. Appropriate controls are performed and reacted as expected. Results on target cell population are indicated in the following table: RESULTS: ANTIBODY / CLONE RESULT H Pylori (polyclonal) negative These tests were developed and their performance characteristics determined by [facility] Laboratory. They may not have been cleared or approved by the U.S. Food and Drug Administration. The FDA has determined that such clearance or approval is not necessary. The above immunohistochemical/ghazal Vadim markers are ordered and reviewed by the Pathologist. INTERPRETATION: Gastric antrum, biopsy: Negative for Helicobacter pylori organisms. AM/mr 03/31/2024 Signed (signature on file) Dr. Nadeem Petersen, 03/31/241403 Normal [facility] Comment on above: Performed By: #### P H.PYLORI ####[facility] [id number] [place], [place], [address] Surgery Specimen Level Danika 03-27-2024 Surgery Specimen Level IV Patient Age/Sex Location Account Attending Physician PENG LORA 23/M EN [id number] Dr. Estee Leyva MD Specimen: [id number] Received: 03/27/24 Status: LIA Carrillojean Num: [id number] Spec Type: EGD BIOPSY Subm Dr: Dr. Estee Leyva MD HEADER OPERATION: Colonoscopy, EGD biopsy PRE-OP DIAGNOSIS: GERD, Blood per rectum TISSUE SUBMITTED: Gastric antrum biopsy MICROSCOPIC DIAGNOSIS Gastric antrum, biopsy: Chronic gastritis. / 03/31/2024 COMMENT The results of immunohistochemistry for Helicobacter pylori will be reported separately ([id number]). MICROSCOPIC DESCRIPTION Slides are reviewed. GROSS DESCRIPTION Received in fixative is one container labeled with the patient's name and designated Gastric antrum biopsy. The specimen consists of one irregular fragment of light delcid soft tissue that measures 0.6 x 0.3 x 0.1 cm. The specimen is totally submitted in one cassette. / 03/27/2024 TC:3 CPT:17520 Patient Age/Sex Location Account Attending Physician PENG LORA 23/M EN [id number] Dr. Estee Leyva MD Signed (signature on file) Dr. Nadeem Petersen DO 03/31/24 1301 Normal [facility] Comment on above: Performed By: #### P PAMELA #### [facility] Laboratory [facility] [place], [address] Surgery Visit Reporton 03-10 Surgery Visit Report [facility] [address] [place] [address] OFFICE VISIT Date of Service: 03/10/24 MR#: [id number] Acct: [id number] Name: PENG LORA Rep #: [id number] : 2000 Provider: Dr. Estee samuels MD Age/Sex: 23/M Location: [facility] Status: Signed Intake Vital Signs 02/04/24 09:02 03/10/24 09:02 Height 6 ft 4 in 6 ft 4 in Weight: 179 lb 6 oz 177 lb 6 oz BMI 21.8 21.6 BP 116/72 140/91 H Blood Pressure Location Lt brachial Rt brachial Position Sitting Sitting Respiration 16 18 Pulse 48 L 96 Pulse Source Monitor Monitor Temp 97.4 F L 97.3 F L Temp Source Temporal Temporal Pulse Oximetry (%) 99 100 Oxygen Delivery Method room air room air Intake Visit Reasons: hx of polyps Chief Complaint: hx of polpys Is patient in pain?: No Allergies cephalexin Allergy (Mild, Verified 03/10/24 09:08) Rash-Hives Penicillins [PCN] Allergy (Verified 03/10/24 09:08) Rash sertraline [From Zoloft] Adverse Reaction (Severe, Verified 03/10/24 09:08) Other Medications multivitamin (Daily Multi-Vitamin tablet) 1 tab PO DAILY 04/11/23 [History Confirmed 03/10/24] venlafaxine 75 mg capsule,extended release 24 hr (Effexor XR) 75 mg PO DAILY #90 caps 10/09/23 [Rx Confirmed 03/10/24] metoprolol succinate 50 mg tablet,extended release 24 hr 50 mg PO DAILY #30 tabs 10/29/23 [Rx Confirmed 03/10/24] metronidazole 500 mg tablet 500 mg PO Q6H #40 tabs 01/29/24 [Rx Confirmed 03/10/24] omeprazole 40 mg capsule,delayed release 40 mg PO QDAY #30 caps 03/12/24 [Rx Confirmed 03/12/24] PFSH Medical History (Updated 03/12/24 @ 08:[address] Estee Leyva MD) Allergic rhinitis Anxiety Anxiety about health Chest pain Condyloma acuminata GERD (gastroesophageal reflux disease) Hearing problem History of suicidal ideation IBS (irritable bowel syndrome) Inguinal lymphadenitis Left ventricular dilatation Non-sustained ventricular tachycardia Palpitations Pectus excavatum Pre-syncope Seasonal allergies Family History Grandfather Cancer Parkinson disease Thyroid disorder Grandmother Cancer Osteoporosis Father Arthritis Myocardial infarction, Onset Age: 54 Cancer skin Spinal stenosis Heart disease atrial fib Mother Thyroid disorder Other CAD (coronary artery disease) Social History Smoking Status: Current some day smoker tobacco type: e-cigarettes alcohol intake: current alcohol intake frequency: a few times a week Alcohol type: beer substance use type: does not use what type of physical activity do you participate in: walking and running frequency: 3-4 times per week seatbelt use: always do you feel safe at home: Yes HPI HPI HPI: 23 y/o M presents for EGD Colonoscopy due to GERD, blood in stool. Pt had colonoscopy in [address] Santiago- pt thought he had 3 polyps but actually only one hyperplastic in sigmoid and negative random biopsy and normal TI bx to r/o crohns. Pt denies FH of IBD/colon cancer. Pt states his BM go between diarrhea/constipation. Pt has occasionally blood in stool- bright red/maroon occ black about 2 x a week, with stool inbetween with no blood. BM daily. no known hemorrhoids, occ n/v, daily GERD-burning up esophagus-not on medication. ROS General General: No weight change, appetite, fatigue, colon cancer, breast cancer or weakness HEENT HEENT: No difficulty swallowing, eye injury, eye surgery, swollen glands or hoarseness Endo Endocrine: No thyroid disease, diabetes mellitus, thyroid cancer, Hair loss, heat intolerance or cold intolerance Skin Skin: No rash or changing moles Musc Musculoskeletal: No back problems, arthritis, rheumatoid arthritis, gout or joint pain Cardio Cardiovascular: Yes high blood pressure; No murmur, pacemaker, heart disease, atrial fibrillation, heart attack, heart stent, palpitations, shortness of breat with exertion or chest pain Psych Psychiatric: Yes depression and anxiety; No hearing voices Resp Respiratory: No shortness of breath, No sleep apnea, No cough, No COPD, No asthma, No emphysema and No wheezing Gastro Gastrointestinal: Yes abdominal pain, Yes nausea or vomiting, Yes diarrhea, Yes constipation, Yes blood in stool, No acid reflux, Yes hemorrhoids, No ulcers, No gallbladder problem and No black,tarry stools [place] Hematologic: No blood thinners, No blood disorders, No bleeding, No anemia and No blood clots Neuro Neurologic: No numbness, No tingling and No weakness Exam Const General: cooperative, healthy appearing, comfortable and no acute distress HENMT Head: normocephalic and atraumatic Neck Neck: supple Resp Effort Inspection: normal respiratory effor (more content not included)... Normal [facility] Internal Medicine Office Vis itoartis 02-04-2024 Internal Medicine Office Visit [facility] [address] [place] [address] OFFICE VISIT Date of Service: 02/04/24 MR#: [id number] Acct: [id number] Name: PENG LORA Rep #: [id number] : 2000 Provider: BJ martinez Age/Sex: 23/M Location: [facility] Status: Signed Intake Vital Signs 01/29/24 07:39 02/04/24 09:02 Height 6 ft 4 in 6 ft 4 in Weight: 179 lb 6 oz BMI 21.8 BP 116/72 Blood Pressure Location Lt brachial Position Sitting Respiration 16 Pulse 48 L Pulse Source Monitor Temp 97.4 F L Temp Source Temporal Pulse Oximetry (%) 99 Oxygen Delivery Method room air Intake Visit Reasons: ACUTE [facility] FU-COLITIS Chief Complaint: colitis f/u Director Of Capital Giving Required: No Accompanied by: Self Is patient in pain?: No Allergies cephalexin Allergy (Mild, Verified 02/04/24 08:59) Rash-Hives Penicillins [PCN] Allergy (Verified 02/04/24 08:59) Rash sertraline [From Zoloft] Adverse Reaction (Severe, Verified 02/04/24 08:59) Other Medications multivitamin (Daily Multi-Vitamin tablet) 1 tab PO DAILY 04/11/23 [History Confirmed 02/04/24] venlafaxine 75 mg capsule,extended release 24 hr (Effexor XR) 75 mg PO DAILY #90 caps 10/09/23 [Rx Confirmed 02/04/24] metoprolol succinate 50 mg tablet,extended release 24 hr 50 mg PO DAILY #30 tabs 10/29/23 [Rx Confirmed 02/04/24] metronidazole 500 mg tablet 500 mg PO Q6H #40 tabs 01/29/24 [Rx Confirmed 02/04/24] PFSH Medical History Allergic rhinitis Anxiety Anxiety about health Chest pain Condyloma acuminata Hearing problem History of suicidal ideation IBS (irritable bowel syndrome) Inguinal lymphadenitis Left ventricular dilatation Non-sustained ventricular tachycardia Palpitations Pectus excavatum Pre-syncope Seasonal allergies Family History Grandfather Cancer Parkinson disease Thyroid disorder Grandmother Cancer Osteoporosis Father Arthritis Myocardial infarction, Onset Age: 54 Cancer skin Spinal stenosis Heart disease atrial fib Mother Thyroid disorder Other CAD (coronary artery disease) Social History Smoking Status: Current some day smoker tobacco type: e-cigarettes alcohol intake: current alcohol intake frequency: a few times a week Alcohol type: beer substance use type: does not use what type of physical activity do you participate in: walking and running frequency: 3-4 times per week seatbelt use: always do you feel safe at home: Yes HPI HPI Chief Complaint: colitis f/u Details: PENG LORA, is a 23 M who presents to the office today for hospital follow-up. Patient presented to the emergency department on 01/29/2024 with reports of right upper quadrant discomfort with associated rectal bleeding. He denied having any nausea, vomiting, fever, or chills. He does have a history of colon polyps in the past as evidenced on a colonoscopy per patient's report that was performed in [address] Whaley office. He states he has had intermittent flareups of similar pain but usually on the left side usually about once a year. Emergency department evaluation demonstrated stable CBC and CMP. Occult stool was positive. Urinalysis was relatively unremarkable. CT of the abdomen demonstrated mild edema and thickening of the inner mucosa of the wall of the proximal transverse colon in the right space consistent with colitis. He was discharged to home with prescriptions for a 10-day course of Flagyl and ciprofloxacin. He reports he has been taking medications as prescribed. Today he states his symptoms have completely resolved. He did have diarrhea up until about 2 days ago but reports bloody stool has disappeared. No longer has pain. He denies nausea, vomiting, diarrhea, constipation, fever, chills, dysuria. He has been eating a bland diet and reports adequate oral intake and good appetite. He was previously seen by Dr. Spencer on 01/28/2024 and was referred to general surgery for repeat colonoscopy. ROS Const Constitutional: No body ache, chills, excessive sweating, fatigue, fever(s), frequent falls, headache(s), snoring, weakness or change in appetite Eyes Eyes: No blurry vision, change in vision, eye pain or Light sensitivity ENT ENT: No abnormal hearing, ear or mastoid pain, tinnitus, nasal congestion, headache(s), neck pain or sore throat Resp Respiratory: No cough, shortness of breath, snoring or wheezing Cardio Cardiology: No chest pain at rest, chest pain with exertion, excessive sweating, dyspnea on exertion, lightheadedness, orthopnea or palpitations Gastro GI: No abdominal pain, change in bowel habits, constipation, cramping, diarrhea, nausea/dyspepsia or vomiting Genitourinary Male: No (more content not included)... Normal [facility] Abdomen/Pelvis WITH Contrast on 01-29-2024 Abdomen/Pelvis WITH Contrast [facility] Imaging Services [address] [place] [address] Abdomen/Pelvis WITH Contrast MR#: [id number] Acct: [id number] Name: PENG LORA Rep #: [id number] : 2000 23 From: Konrad michael MD PCP: Dr. Michael Spencer, DO Status: [facility] Study: Abdomen/Pelvis WITH Contrast Date of Exam: Exam# [id number] Ordering Dr: [place] [id number] STUDY: CT ABDOMEN AND PELVIS WITH CONTRAST REASON FOR EXAM: Male, 23 years old. Right upper quadrant pain, blood in stool. RADIATION DOSAGE (If Supplied By Facility): CTDIvol = ( 10.61 ) mGy, DLP = ( 576.37 ) mGycm TECHNIQUE: Transaxial images were obtained from the dome of the diaphragm to the symphysis pubis with oral contrast. ml of Gastrografin and amp; 100mL Isovue-300 contrast was administered. Sagittal and coronal images were reconstructed. Individualized dose optimization techniques were used for this CT. COMPARISON: None. FINDINGS: The visualized lung bases are unremarkable. The visualized portions of the heart are within normal limits. Normal liver. Normal gallbladder and extrahepatic biliary system. No radiopaque gallstones are seen. No visualized pericholecystic fluid or inflammatory stranding. Normal spleen. Normal pancreas. Normal bilateral adrenal glands. Normal right kidney. Normal left kidney. No hydronephrosis or large radiopaque kidney stones are present. Normal visualized stomach. Normal small intestine. Mild edema and thickening of the inner mucosa of the wall of the proximal transverse colon in the right subhepatic space is consistent with nonspecified colitis. No colonic masses or diverticula are present. There is no demonstrated free air or abscess. The remaining colonic loops are normal. The appendix is visualized and appears normal. Normal abdominal aorta. Normal inferior vena cava. Normal retroperitoneum. Normal urinary bladder. Normal abdominal wall. Normal osseous structures. CT/Abdomen/Pelvis WITH Contrast IMPRESSION: 1. Mild edema and thickening of the inner mucosa of the wall of the proximal transverse colon in the right subhepatic space is consistent with nonspecified colitis. No colonic masses or diverticula are present. There is no demonstrated free air or abscess. The remaining colonic loops are normal. Electronically Signed: Konrad Larry MD at 10:36 EST , CC: Dr. Michael Spencer, DO; Dr. Kwesi Villarreal, DO College Archivist: Signed Normal [facility] Absolute lymphocyte countOrd ered By: Kwesi Villarreal on 01-29-2024 Lymphocytes Auto (Unsp spec) [#/Vol] 2.62 10*3/uL 0.83-4.51 [facility] Automated lymphocyte count a s percentage of total leukocytesOrdered By: Kwesi Villarreal on 01-29-2024 Lymphocytes/100 WBC Auto (Unsp spec) 41.9 % 19-41 [facility] Basophil percentageOrdered B y: Kwesi Villarreal on 01-29-2024 Bilirubin [Mass/Vol] 0.70 mg/dL 0.20-1.00 [facility] Comment on above: For patients on eltr ombopag therapy, use of Dimension [place] TBIL is not recommended. Chloride [Moles/Vol] 107 mmol/L 98-107 [facility] Glucose [Mass/Vol] 97 mg/dL 74-106 [facility] Potassium [Moles/Vol] 3.8 mmol/L 3.5-5.1 [facility] Protein [Mass/Vol] 7.7 g/dL 6.4-8.2 [facility] Sodium [Moles/Vol] 141 mmol/L 136-145 [facility] Basophil percentage 0-5 SEEN /hpf 0-5 [facility] Basophils/100 WBC (Bld) 0.6 % 0-1 [facility] Eosinophils/100 WBC (Bld) 1.9 % 0-5 [facility] Hemoglobin (Bld) [Mass/Vol] 16.3 g/dL 13.0-16.5 [facility] Monocytes/100 WBC (Bld) 6.7 % 0-10 [facility] Neutrophils (Bld) [#/Vol] 3.0 10*3/uL 2.0-7.7 [facility] Neutrophils/100 WBC (Bld) 48.6 % 47-70 [facility] WBC (Bld) [#/Vol] 6.3 10*3/uL 4.4-11.0 [facility] Bilirubin Test strip Ql (U)O rdered By: Kwesi Villarreal on 01-29-2024 Bilirubin Ql (U) Negative Negative [facility] CBC W/Diff, Automatedon 01-03 Absolute Lymph 2.62 X10 3/uL Normal 0.83-4.51 [facility] Comment on above: Performed By: #### L 100.0100, M100.7900, L500.4050 #### [facility] Laboratory [address] [place], [address] Absolute Neut 3.0 X10 3/uL Normal 2.0-7.7 [facility] Comment on above: Performed By: #### L 100.0100, M100.7900, L500.4050 #### [facility] Laboratory [address] [place], [address] Basophils/100 WBC (Bld) 0.6 % Normal 0-1 [facility] Comment on above: Performed By: #### L 100.0100, M100.7900, L500.4050 #### [facility] Laboratory [address] [place], [address] Eosinophils/100 WBC (Bld) 1.9 % Normal 0-5 [facility] Comment on above: Performed By: #### L 100.0100, M100.7900, L500.4050 #### [facility] Laboratory [address], [address] Erythrocyte distribution width (RBC) [Ratio] 11.5 % Low 11.6-14.6 [facility] Comment on above: Performed By: #### L 100.0100, M100.7900, L500.4050 #### [facility] Laboratory [address] [place], [address] Hematocrit (Bld) [Volume fraction] 47.9 % Normal 40-54 [facility] Comment on above: Performed By: #### L 100.0100, M100.7900, L500.4050 #### [facility] Laboratory [address] [place], [address] Hemoglobin (Bld) [Mass/Vol] 16.3 g/dL Normal 13.0-16.5 [facility] Comment on above: Performed By: #### L 100.0100, M100.7900, L500.4050 #### [facility] Laboratory [address] [place], [address] IG% 0.300 Normal 0.0-0.9 [facility] Comment on above: Result Comment: IG% - Immature Granulocytes (promyelocytes, myelocytes and metamyelocytes) > 1% indicates that a LEFT SHIFT is Present. Performed By: #### L 100.0100, M100.7900, L500.4050 #### [facility] Laboratory [address] [place], [address] Lymphocytes/100 WBC (Bld) 41.9 % High 19-41 [facility] Comment on above: Performed By: #### L 100.0100, M100.7900, L500.4050 #### [facility] Laboratory [address] [place], [address] MCH (RBC) [Entitic mass] 31.8 pg Normal 27.0-32.0 [facility] Comment on above: Performed By: #### L 100.0100, M100.7900, L500.4050 #### [facility] Laboratory [address] [place], [address] MCHC (RBC) [Mass/Vol] 34.0 g/dL Normal 32-36 [facility] Comment on above: Performed By: #### L 100.0100, M100.7900, L500.4050 #### [facility] Laboratory [address] [place], [address] MCV (RBC) [Entitic vol] 93.4 fL Normal 80-94 [facility] Comment on above: Performed By: #### L 100.0100, M100.7900, L500.4050 #### [facility] Laboratory [address] [place], [address] Monocytes/100 WBC (Bld) 6.7 % Normal 0-10 [facility] Comment on above: Performed By: #### L 100.0100, M100.7900, L500.4050 #### [facility] Laboratory [address] [place], [address] Neutrophils/100 WBC (Bld) 48.6 % Normal 47-70 [facility] Comment on above: Performed By: #### L 100.0100, M100.7900, L500.4050 #### [facility] Laboratory [address] [place], [address] Nucleated RBC (Bld) [#/Vol] 0 10*3/uL Normal 0-5 [facility] Comment on above: Performed By: #### L 100.0100, M100.7900, L500.4050 #### [facility] Laboratory [address] [place], [address] Platelet mean volume (Bld) [Entitic vol] 9.3 fL Normal 6.2-12.0 [facility] Comment on above: Performed By: #### L 100.0100, M100.7900, L500.4050 #### [facility] Laboratory [address] [place], [address] Platelets (Bld) [#/Vol] 354 10*3/uL Normal 150-450 [facility] Comment on above: Performed By: #### L 100.0100, M100.7900, L500.4050 #### [facility] Laboratory [address] [place], [address] RBC (Bld) [#/Vol] 5.13 10*6/uL Normal 4.6-6.2 [facility] Comment on above: Performed By: #### L 100.0100, M100.7900, L500.4050 #### [facility] Laboratory [address] [place], [address] RDW SD 39.6 fl Normal 35.1-43.9 [facility] Comment on above: Performed By: #### L 100.0100, M100.7900, L500.4050 #### [facility] Laboratory [address] [place], [address] WBC (Bld) [#/Vol] 6.3 10*3/uL Normal 4.4-11.0 [facility] Comment on above: Performed By: #### L 100.0100, M100.7900, L500.4050 #### [facility] Laboratory [address] [place], [address] Comprehensive Metabolic Prof ilon 01-29-2024 Albumin [Mass/Vol] 4.0 g/dL Normal 3.2-5.0 [facility] Comment on above: Order Comment: REDRA W. PREVIOUS SPECIMEN REJECTED DUE TOHEMOLYSIS. 01/29/24 0849 Shaunna Jean. Performed By: #### L 501.2450, L500.4050 ####[facility] [id number] [place], [address] Albumin/Globulin [Mass ratio] 1.1 {ratio} Normal 0.9-2.4 [facility] Comment on above: Order Comment: REDRA W. PREVIOUS SPECIMEN REJECTED DUE TOHEMOLYSIS. 01/29/24 0849 Shaunna Jean. Performed By: #### L 501.2450, L500.4050 ####[facility] [address] [place], [address] ALK P 61 U/L Normal 45-117 [facility] Comment on above: Order Comment: REDRA W. PREVIOUS SPECIMEN REJECTED DUE TOHEMOLYSIS. 01/29/24 0849 Shaunna Jean. Performed By: #### L 501.2450, L500.4050 ####[facility] [address] [place], [address] ALT [Catalytic activity/Vol] 48 U/L Normal 16-61 [facility] Comment on above: Order Comment: REDRA W. PREVIOUS SPECIMEN REJECTED DUE TOHEMOLYSIS. 01/29/2449 Shaunna Avileszano. Performed By: #### L 501.2450, L500.4050 ####[facility] [id number] [place], [address] AST [Catalytic activity/Vol] 33 U/L Normal 15-37 [facility] Comment on above: Order Comment: REDRA W. PREVIOUS SPECIMEN REJECTED DUE TOHEMOLYSIS. 01/29/2449 Shaunna Jean. Performed By: #### L 501.2450, L500.4050 ####[facility] [id number] [place], [address] Bilirubin [Mass/Vol] 0.70 mg/dL Normal 0.20-1.00 [facility] Comment on above: Order Comment: REDRA W. PREVIOUS SPECIMEN REJECTED DUE TOHEMOLYSIS. 01/29/2449 Shaunna Jean. Result Comment: For patients on eltrombopag therapy, use of Dimension [place] TBIL is not recommended. Performed By: #### L 501.2450, L500.4050 ####[facility] [id number] [place], [address] BUN/CRE 12.7 RATIO Normal 10-20 [facility] Comment on above: Order Comment: REDRA W. PREVIOUS SPECIMEN REJECTED DUE TOHEMOLYSIS. 01/29/2449 Shaunna Jean. Performed By: #### L 501.2450, L500.4050 ####[facility] [address] [place], [address] CA,Total 8.7 mg/dL Normal 8.5-10.1 [facility] Comment on above: Order Comment: REDRA W. PREVIOUS SPECIMEN REJECTED DUE TOHEMOLYSIS. 01/29/2449 Shaunna Avileszano. Performed By: #### L 501.2450, L500.4050 ####[facility] [address] [place], [address] Chloride [Moles/Vol] 107 mmol/L Normal 98-107 [facility] Comment on above: Order Comment: REDRA W. PREVIOUS SPECIMEN REJECTED DUE TOHEMOLYSIS. 01/29/24 0849 Shaunna Jean. Performed By: #### L 501.2450, L500.4050 ####[facility] [address] [place], [address] CO2 [Moles/Vol] 32.0 mmol/L Normal 21.0-32.0 [facility] Comment on above: Order Comment: REDRA W. PREVIOUS SPECIMEN REJECTED DUE TOHEMOLYSIS. 01/29/24 0849 Shaunna Jean. Performed By: #### L 501.2450, L500.4050 ####[facility] [address] [place], [address] Creatinine [Mass/Vol] 0.78 mg/dL Normal 0.70-1.30 [facility] Comment on above: Order Comment: REDRA W. PREVIOUS SPECIMEN REJECTED DUE TOHEMOLYSIS. 01/29/24 0849 Shaunna Jean. Result Comment: The validity of the calculated GFR GFRAA in patients over 70 years has not been determined. Clinical correlation is essential. Performed By: #### L 501.2450, L500.4050 ####[facility] [address] [place], [address] ECRCL 169.34 ml/min Normal [facility] Comment on above: Order Comment: REDRA W. PREVIOUS SPECIMEN REJECTED DUE TOHEMOLYSIS. 01/29/24 0849 Shaunna Jean. Performed By: #### L 501.2450, L500.4050 ####[facility] [address] [place], [address] EST GFR - AA 156 mL/min Normal >60 [facility] Comment on above: Order Comment: REDRA W. PREVIOUS SPECIMEN REJECTED DUE TOHEMOLYSIS. 01/29/24 0849 Shaunna Jean. Result Comment: Afri can [place] GFR Calc Performed By: #### L 501.2450, L500.4050 ####[facility] [address] [place], [address] GAP 2 Low 5-15 [facility] Comment on above: Order Comment: REDRA W. PREVIOUS SPECIMEN REJECTED DUE TOHEMOLYSIS. 01/29/24 0849 Shaunna Jean. Performed By: #### L 501.2450, L500.4050 ####[facility] [id number] [place], [address] GFR/1.73 sq M.predicted among non-blacks MDRD (S/P/Bld) [Vol rate/Area] 129 mL/min/{1.73_m2} Normal >60 [facility] Comment on above: Order Comment: REDRA W. PREVIOUS SPECIMEN REJECTED DUE TOHEMOLYSIS. 01/29/24 0849 Shaunna Jean. Result Comment: Non- GFR Calc Performed By: #### L 501.2450, L500.4050 ####[facility] [address] [place], [address] Globulin (S) [Mass/Vol] 3.7 g/dL Normal 2.2-4.2 [facility] Comment on above: Order Comment: REDRA W. PREVIOUS SPECIMEN REJECTED DUE TOHEMOLYSIS. 01/29/24 0849 Shaunna Jean. Performed By: #### L 501.2450, L500.4050 ####[facility] [address] [place], [address] Glucose [Mass/Vol] 97 mg/dL Normal 74-106 [facility] Comment on above: Order Comment: REDRA W. PREVIOUS SPECIMEN REJECTED DUE TOHEMOLYSIS. 01/29/24 0849 Shaunna Jean. Performed By: #### L 501.2450, L500.4050 ####[facility] [address] [place], [address] Potassium [Moles/Vol] 3.8 mmol/L Normal 3.5-5.1 [facility] Comment on above: Order Comment: REDRA W. PREVIOUS SPECIMEN REJECTED DUE TOHEMOLYSIS. 01/29/24 0849 Shaunna Jean. Performed By: #### L 501.2450, L500.4050 ####[facility] [address] [place], [address] Sodium [Moles/Vol] 141 mmol/L Normal 136-145 [facility] Comment on above: Order Comment: REDRA W. PREVIOUS SPECIMEN REJECTED DUE TOHEMOLYSIS. 01/29/2449 Shaunna Jean. Performed By: #### L 501.2450, L500.4050 ####[facility] [address] [place], [address] T PROT 7.7 g/dL Normal 6.4-8.2 [facility] Comment on above: Order Comment: REDRA W. PREVIOUS SPECIMEN REJECTED DUE TOHEMOLYSIS. 01/29/2449 Shaunna Jean. Performed By: #### L 501.2450, L500.4050 ####[facility] [address] [place], [address] Urea nitrogen [Mass/Vol] 10 mg/dL Normal 7-18 [facility] Comment on above: Order Comment: REDRA W. PREVIOUS SPECIMEN REJECTED DUE TOHEMOLYSIS. 01/29/2449 Shaunna Jean. Performed By: #### L 501.2450, L500.4050 ####[facility] [address] [place], [address] ALB Normal 3.2-5.0 [facility] Comment on above: Result Comment: This specimen has been REJECTED due to Laboratory criteria: Hemolyzed. SANTI has been notified of need of recollection. 01/29/2448 Shaunna Jean Performed By: #### L 100.0100, M100.7900, L500.4050 #### [facility] Laboratory [address] [place], [address] ALK P Normal 45-117 [facility] Comment on above: Result Comment: This specimen has been REJECTED due to Laboratory criteria: Hemolyzed. SANTI has been notified of need of recollection. 01/29/24847 Shaunna Jean Performed By: #### L 100.0100, M100.7900, L500.4050 #### [facility] Laboratory [address] [place], [address] ALT Normal 16-61 [facility] Comment on above: Result Comment: This specimen has been REJECTED due to Laboratory criteria: Hemolyzed. SANTI has been notified of need of recollection. 01/29/2448 Shaunna Jean Performed By: #### L 100.0100, M100.7900, L500.4050 #### [facility] Laboratory [address] [place], [address] AST Normal 15-37 [facility] Comment on above: Result Comment: This specimen has been REJECTED due to Laboratory criteria: Hemolyzed. SANTI has been notified of need of recollection. 01/29/24847 Shaunna Jean Performed By: #### L 100.0100, M100.7900, L500.4050 #### [facility] Laboratory [address] [place], [address] BUN Normal 7-18 [facility] Comment on above: Result Comment: This specimen has been REJECTED due to Laboratory criteria: Hemolyzed. SANTI has been notified of need of recollection. 01/29/24847 Shaunna Jean Performed By: #### L 100.0100, M100.7900, L500.4050 #### [facility] Laboratory [address] [place], [address] BUN/CRE Normal 10-20 [facility] Comment on above: Result Comment: This specimen has been REJECTED due to Laboratory criteria: Hemolyzed. SANTI has been notified of need of recollection. 01/29/24847 Shaunna Jean Performed By: #### L 100.0100, M100.7900, L500.4050 #### [facility] Laboratory [address] [place], [address] CA,Total Normal 8.5-10.1 [facility] Comment on above: Result Comment: This specimen has been REJECTED due to Laboratory criteria: Hemolyzed. SANTI has been notified of need of recollection. 01/29/24847 Shaunna Jean Performed By: #### L 100.0100, M100.7900, L500.4050 #### [facility] Laboratory [address] [place], [address] CL Normal 98-107 [facility] Comment on above: Result Comment: This specimen has been REJECTED due to Laboratory criteria: Hemolyzed. SANTI has been notified of need of recollection. 01/29/2448 Shaunna Jean Performed By: #### L 100.0100, M100.7900, L500.4050 #### [facility] Laboratory [address] [place], [address] CO2 Normal 21.0-32.0 [facility] Comment on above: Result Comment: This specimen has been REJECTED due to Laboratory criteria: Hemolyzed. SANTI has been notified of need of recollection. 01/29/2448 Shaunna Jean Performed By: #### L 100.0100, M100.7900, L500.4050 #### [facility] Laboratory [address] [place], [address] CREAT,SERUM Normal 0.70-1.30 [facility] Comment on above: Result Comment: This specimen has been REJECTED due to Laboratory criteria: Hemolyzed. SANTI has been notified of need of recollection. 01/29/2448 Shaunna Jean Performed By: #### L 100.0100, M100.7900, L500.4050 #### [facility] Laboratory [address] [place], [address] EST GFR Normal >60 [facility] Comment on above: Result Comment: This specimen has been REJECTED due to Laboratory criteria: Hemolyzed. SANTI has been notified of need of recollection. 01/29/24847 Shaunna Jean Performed By: #### L 100.0100, M100.7900, L500.4050 #### [facility] Laboratory [address] [place], [address] EST GFR - AA Normal >60 [facility] Comment on above: Result Comment: This specimen has been REJECTED due to Laboratory criteria: Hemolyzed. SANTI has been notified of need of recollection. 01/29/2448 Shaunna Jean Performed By: #### L 100.0100, M100.7900, L500.4050 #### [facility] Laboratory [address] [place], [address] GAP Normal 5-15 [facility] Comment on above: Result Comment: This specimen has been REJECTED due to Laboratory criteria: Hemolyzed. SANTI has been notified of need of recollection. 01/29/2448 Shaunna Jean Performed By: #### L 100.0100, M100.7900, L500.4050 #### [facility] Laboratory [address] [place], [address] GLU Normal 74-106 [facility] Comment on above: Result Comment: This specimen has been REJECTED due to Laboratory criteria: Hemolyzed. SANTI has been notified of need of recollection. 01/29/24847 Shaunna Jean Performed By: #### L 100.0100, M100.7900, L500.4050 #### [facility] Laboratory [address] [place], [address] Potassium Normal 3.5-5.1 [facility] Comment on above: Result Comment: This specimen has been REJECTED due to Laboratory criteria: Hemolyzed. SANTI has been notified of need of recollection. 01/29/2448 Shaunna Jean Performed By: #### L 100.0100, M100.7900, L500.4050 #### [facility] Laboratory [address] [place], [address] T BILI Normal 0.20-1.00 [facility] Comment on above: Result Comment: This specimen has been REJECTED due to Laboratory criteria: Hemolyzed. SANTI has been notified of need of recollection. 01/29/24 0848 Shaunna Jean Performed By: #### L 100.0100, M100.7900, L500.4050 #### [facility] Laboratory [address] [place], [address] T PROT Normal 6.4-8.2 [facility] Comment on above: Result Comment: This specimen has been REJECTED due to Laboratory criteria: Hemolyzed. SANTI has been notified of need of recollection. 01/29/24 0848 Shaunna Jean Performed By: #### L 100.0100, M100.7900, L500.4050 #### [facility] Laboratory [address] [place], [address] Comprehensive Metabolic Profil Normal 136-145 [facility] Comment on above: Result Comment: This specimen has been REJECTED due to Laboratory criteria: Hemolyzed. SANTI has been notified of need of recollection. 01/29/24 0848 Shaunna Jean Performed By: #### L 100.0100, M100.7900, L500.4050 #### [facility] Laboratory [address] [place] [place], [address] Determination of erythrocyte mean corpuscular volume (MCV)Ordered By: Kwesi Villarreal on 01-29-2024 MCV (RBC) [Entitic vol] 93.4 fL 80-94 [facility] Emergency Department Summary on 01-29-2024 Emergency Department Summary [facility] Medical Records Department [address] [place] [address] Emergency Department Summary 01/29/24 MR#: [id number] Acct: [id number] Name: PENG LORA Rep #: [id number] : 2000 23 From: Kwesi Villarreal DO PCP: Dr. Michael Spencer, DO Status:DEP ER Location: ED HPI HPI - GI History of Present Illness Chief Complaint: Abd Pain Informant: patient Abdominal Pain/Flank Pain Onset: Today Context: Sudden Onset Timing: Intermittent Quality: Dull Location: RUQ Worsened by: Nothing Relieved by: Nothing Nausea/Vomiting/Emesis GI Symptom: Negative for Nausea or Vomiting Diarrhea/Melena/Hematoc hezia GI Symptom: Positive for Diarrhea and Hematochezia Onset: Today Associated Symptoms Associated Symptoms: Positive for Dysuria; Negative for Frequency or Hematuria Narrative Narrative: Patient presents with abdominal pain and rectal bleeding that began this morning. Patient states his pain is intermittent. Patient states his pain is mainly over the right upper abdomen. Patient describes the pain as dull. Patient states nothing makes it better nothing makes it worse. Patient states he noted some blood in his stool and on the toilet paper when he wiped. Patient states he has had a history of colon polyps in the past. Patient admits to some dysuria. Patient denies any fevers or chills. Patient denies any nausea or vomiting. PFSH [facility] Medical History Allergic rhinitis Anxiety Anxiety about health Chest pain Condyloma acuminata Hearing problem History of suicidal ideation IBS (irritable bowel syndrome) Inguinal lymphadenitis Left ventricular dilatation Non-sustained ventricular tachycardia Palpitations Pectus excavatum Pre-syncope Seasonal allergies Home Medications multivitamin (Daily Multi-Vitamin tablet) 1 tab PO DAILY 04/11/23 [History Last Taken Unknown] venlafaxine 75 mg capsule,extended release 24 hr (Effexor XR) 75 mg PO DAILY #90 caps 10/09/23 [Rx Last Taken Unknown] metoprolol succinate 50 mg tablet,extended release 24 hr 50 mg PO DAILY #30 tabs 10/29/23 [Rx Last Taken Unknown] ciprofloxacin HCl 500 mg tablet 500 mg PO BID #20 TABLETS 01/29/24 [Rx Last Taken Unknown] metronidazole 500 mg tablet 500 mg PO Q6H #40 tabs 01/29/24 [Rx Last Taken Unknown] Allergy/AdvReac Type Severity Reaction Status Date / Time cephalexin Allergy Mild Rash-Hives Verified 01/28/24 09:28 Penicillins [PCN] Allergy Rash Verified 01/28/24 09:28 sertraline [From Zoloft] AdvReac Severe Other Verified 01/28/24 09:28 Family History Grandfather Cancer Parkinson disease Thyroid disorder Grandmother Cancer Osteoporosis Father Arthritis Myocardial infarction, Onset Age: 54 Cancer skin Spinal stenosis Heart disease atrial fib Mother Thyroid disorder Other CAD (coronary artery disease) Social History Smoking Status: Current some day smoker tobacco type: e-cigarettes alcohol intake: current alcohol intake frequency: a few times a week Alcohol type: beer substance use type: does not use what type of physical activity do you participate in: walking and running frequency: 3-4 times per week seatbelt use: always do you feel safe at home: Yes ROS ROS ED Constitutional Constitutional ED: Denies chills or fever(s) Eyes Eyes: Denies blurry vision or change in vision ENT ENT ED: Denies rhinorrhea or sore throat Cardiovascular Cardiovascular: Denies chest pain or palpitations Respiratory/Chest Respiratory/Chest: Denies cough or dyspnea Gastrointestinal Gastrointestinal: Reports abdominal pain and diarrhea; Denies nausea or vomiting Genitourinary Genitourinary ED: Reports dysuria; Denies hematuria Musculoskeletal Musculoskeletal: Denies back pain or neck pain Integumentary Denies abscess or rash Neurologic Neurologic: Denies headache(s) or weakness Allergic/Immunologic Allergic/Immunologic ED: Denies mouth swelling or urticaria EXAM Physical Exam Const Vital Signs: 01/29/24 07:39 Temperature 97.2 F L Temperature Source Temporal Pulse Rate 79 Respiratory Rate 16 Blood Pressure 160/105 H Blood Pressure Mean 123 Pulse Ox 100 Oxygen Delivery Method Room Air Positive well nourished and well developed General Appearance ED: well developed and NAD HEENT Reports moist mucous membranes Neck supple and no JVD Resp normal respiratory effort and clear to auscultation bilaterally Cardio regular rate and regular rhythm GI non-distended Palpation: soft and tender RUQ (Mild); Negative for guarding or rebound tenderness present Neuro CN's II-XII intact bilaterally, moves all extremities, no (more content not included)... Normal [facility] Erythrocyte distribution wid th ratioOrdered By: Kwesi Villarreal on 01-29-2024 Erythrocyte distribution width (RBC) [Ratio] 11.5 % 11.6-14.6 [facility] Erythrocyte distribution wid th standard deviationOrdered By: Kwesi Villarreal on 01-29-2024 Erythrocyte distribution width (RBC) [Entitic vol] 39.6 fL 35.1-43.9 [facility] Hematocrit Auto (Bld) [Volum e fraction]Ordered By: Kwesi Villarreal on 01-29-2024 Hematocrit (Bld) [Volume fraction] 47.9 % 40-54 [facility] Immature granulocytes/100 WB C Auto (Bld)Ordered By: Kwesi Villarreal on 01-29-2024 Immature granulocytes/100 WBC (Bld) 0.300 % 0.0-0.9 [facility] Comment on above: IG% - Immature Granu locytes (promyelocytes, myelocytes and metamyelocytes) > 1% indicates that a LEFT SHIFT is Present. Ketones Test strip Ql (U)Ord ered By: Kwesi Villarreal on 01-29-2024 Ketones Ql (U) Negative Negative [facility] Laboratory - Chemistry and C hemistry - challengeOrdered By: Kwesi Villarreal on 01-29-2024 Albumin/Globulin [Mass ratio] 1.1 {ratio} 0.9-2.4 [facility] ALP [Catalytic activity/Vol] 61 U/L 45-117 [facility] ALT [Catalytic activity/Vol] 48 U/L 16-61 [facility] CO2 [Moles/Vol] 32.0 mmol/L 21.0-32.0 [facility] Globulin (S) [Mass/Vol] 3.7 g/dL 2.2-4.2 [facility] Lipase [Catalytic activity/Vol] 24 U/L 13-75 [facility] Comment on above: Please note:LIPASE r evised reference range effective 23. New Lipase methodology. Expected to produce lower values than the previous assay method. NEW Reference Range: 13 - 75 U/L Urea nitrogen/Creatinine [Mass ratio] 12.7 mg/mg 10-20 [facility] Laboratory - Hematology and Cell countsOrdered By: Kwesi Villarreal on 01-29-2024 MCH (RBC) [Entitic mass] 31.8 pg 27.0-32.0 [facility] MCHC (RBC) [Mass/Vol] 34.0 g/dL 32-36 [facility] Nucleated RBC/100 WBC (Bld) [Ratio] 0 % 0-5 [facility] Platelet mean volume (Bld) [Entitic vol] 9.3 fL 6.2-12.0 [facility] Platelets (Bld) [#/Vol] 354 10*3/uL 150-450 [facility] Lipaseon 01-29-2024 Lipase [Catalytic activity/Vol] 24 U/L Normal 13-75 [facility] Comment on above: Order Comment: LAURI Crawford PREVIOUS SPECIMEN REJECTED DUE TOHEMOLYSIS. 01/29/24 0849 Shaunna Jean. Result Comment: Denise morales note: LIPASE revised reference range effective 23. New Lipase methodology. Expected to produce lower values than the previous assay method. NEW Reference Range: 13 - 75 U/L Performed By: #### L 501.2450, L500.4050 ####[facility] [id number], [place], [id number] Lower GI hemoglobin IA Ql (S tl)Ordered By: Kwesi Villarreal on 01-29-2024 Stool Occult Blood (YA) Positive [facility] Stool Occult Blood (YA) Positive [facility] Mucus LM Ql (Urine sed)Order ed By: Kwesi Villarreal on 01-29-2024 Mucus Ql (Urine sed) RARE /hpf [facility] Nitrite Test strip Ql (U)Ord ered By: Kwesi Villarreal on 01-29-2024 Nitrite Ql (U) Negative Negative [facility] No Panel InformationOrdered By: Kwesi Villarreal on 01-29-2024 Estimated Creatinine Clearance Calc 169.34 ml/min [facility] Estimated GFR (MDRD) Amer 156 mL/min >60 [facility] Comment on above: GFR Calc Estimated GFR (MDRD) Non-Af Amer 129 mL/min >60 [facility] Comment on above: Non- GFR Calc Urine RBC 0 SEEN /hpf 0-5 [facility] Protein Test strip Ql (U)Ord ered By: Kwesi Villarreal on 01-29-2024 Protein Ql (U) 15 mg/dl Negative [facility] RBC Auto (Bld) [#/Vol]Ordere d By: Kwesi Villarreal on 01-29-2024 RBC (Bld) [#/Vol] 5.13 10*6/uL 4.6-6.2 [facility] Serum or plasma calcium jordan urement (mass/volume)Ordered By: Kwesi Villarreal on 01-29-2024 Calcium [Mass/Vol] 8.7 mg/dL 8.5-10.1 [facility] Serum or plasma creatinine m easurement (mass/volume)Ordered By: Kwesi Villarreal on 01-29-2024 Creatinine [Mass/Vol] 0.78 mg/dL 0.70-1.30 [facility] Comment on above: The validity of the calculated GFR & GFRAA in patients over 70 years has not been determined. Clinical correlation is essential. Serum or plasma urea nitroge n measurement (mass/volume)Ordered By: Kwesi Villarreal on 01-29-2024 Urea nitrogen [Mass/Vol] 10 mg/dL 7-18 [facility] Squamous epithelial cells de tection in urine sediment by light microscopyOrdered By: Kwesi Villarreal on 01-29-2024 Epithelial cells.squamous LM Ql (Urine sed) 0-5 SEEN /hpf 0-5 [facility] Stool Occult Blood iFOBon STOB Normal Reference Ran ge = Negative Immunochemical Fecal Occult Blood (iFOBT) method. Hemoccult Stl Ql IA Limitation: Menstrual bleeding, constipation bleeding, bleeding hemorrhoids, and urinary bleeding conditions may interfere with test. Occult Blood A Positive A OCCULT BLOOD POSITIVE Normal [facility] Comment on above: Performed By: #### L 100.0100, M100.7900, L500.4050 #### [facility] Laboratory [address] [place], [address] Thin prep Papanicolaou smear with manual screeningOrdered By: Kwesi Villarreal on 01-29-2024 Thin prep Papanicolaou smear with manual screening 4.0 g/dL 3.2-5.0 [facility] Thin prep Papanicolaou smear with manual screening 33 U/L 15-37 [facility] Thin prep Papanicolaou smear with manual screening 2 5-15 [facility] Urinalysis, Completeon 01-29 BACTERIA RARE Normal None Seen [facility] Comment on above: Order Comment: COLLE CTOR TO SPECIFY Performed By: #### L 400.0001 ####[facility] [id number] [place], [address] EPI,SQUAMOUS 0-5 SEEN Normal 0-5 [facility] Comment on above: Order Comment: COLLE CTOR TO SPECIFY Performed By: #### L 400.0001 ####[facility] [id number] [place], [address] Mucus Ql (Urine sed) RARE Normal [facility] Comment on above: Order Comment: GONZALO CTOR TO SPECIFY Performed By: #### L 400.0001 ####[facility] [id number] [place], [address] WBC 0-5 SEEN Normal 0-5 [facility] Comment on above: Order Comment: GONZALO CTOR TO SPECIFY Performed By: #### L 400.0001 ####[facility] [id number] [place], [address] RBC 0 SEEN Normal 0-5 [facility] Comment on above: Order Comment: GONZALO CTOR TO SPECIFY Performed By: #### L 400.0001 ####[facility] [id number] [place], [address] Urine blood detectionOrdered By: Kwesi Villarreal on 01-29-2024 RBC Ql (U) Negative Negative [facility] Urine clarityOrdered By: Lakshmi Villarreal on 01-29-2024 Clarity (U) Sl. Cloudy Clear [facility] Urine color determinationOrd ered By: Kwesi Villarreal on 01-29-2024 Color (U) Yellow Yellow [facility] Urine glucose detectionOrder ed By: Kwesi Villarreal on 01-29-2024 Glucose Ql (U) Normal mg/dl Normal [facility] Urine leukocyte esterase det ection by dipstickOrdered By: Kwesi Villarreal on 01-29-2024 Leukocyte esterase Test strip Ql (U) 25 /ul Negative [facility] Urine pHOrdered By: Kwesi mary on 01-29-2024 pH (U) 8.0 [pH] 5.0 - 8.0 [facility] Urine sediment bacteria coun t by microscopy (number/high power field)Ordered By: Kwesi Villarreal on 01-29-2024 Bacteria LM.HPF (Urine sed) [#/Area] RARE /hpf None Seen [facility] Urine specific gravity measu rementOrdered By: Kwesi Villarreal on 01-29-2024 Specific gravity (U) [Rel density] 1.015 1.002-1.030 [facility] Urine urobilinogen measureme ntOrdered By: Kwesi Villarreal on 01-29-2024 Urobilinogen Ql (U) Normal mg/dl Normal [facility] Internal Medicine Office Vis iton 01-28-2024 Internal Medicine Office Visit [facility] [address] [place] [address] OFFICE VISIT Date of Service: 01/28/24 MR#: [id number] Acct: [id number] Name: MARISAPENGALICIA VALLES Rep #: [id number] : 2000 Provider: Dr. Michael Bailey own, DO Age/Sex: 23/M Location: [facility] Status: Signed Intake Vital Signs 10/09/23 11:35 01/28/24 09:34 Height 6 ft 4 in 6 ft 4 in Weight: 171 lb 180 lb BMI 20.8 21.9 BP 126/84 H 110/70 Blood Pressure Location Rt brachial Lt brachial Position Sitting Sitting Respiration 18 14 Pulse 113 H 96 Pulse Source Monitor Monitor Temp 99.3 F H 100 F H Temp Source Temporal Temporal Pulse Oximetry (%) 97 97 Oxygen Delivery Method room air room air Intake Visit Reasons: 3 m fu Chief Complaint: Routine FU. Director Of Capital Giving Required: No Is patient in pain?: No Allergies cephalexin Allergy (Mild, Verified 01/28/24 09:28) Rash-Hives Penicillins [PCN] Allergy (Verified 01/28/24 09:28) Rash sertraline [From Zoloft] Adverse Reaction (Severe, Verified 01/28/24 09:28) Other Medications multivitamin (Daily Multi-Vitamin tablet) 1 tab PO DAILY 04/11/23 [History Confirmed 01/28/24] venlafaxine 75 mg capsule,extended release 24 hr (Effexor XR) 75 mg PO DAILY #90 caps 10/09/23 [Rx Confirmed 01/28/24] metoprolol succinate 50 mg tablet,extended release 24 hr 50 mg PO DAILY #30 tabs 10/29/23 [Rx Confirmed 01/28/24] [facility] Medical History Allergic rhinitis Anxiety Anxiety about health Chest pain Condyloma acuminata Hearing problem History of suicidal ideation IBS (irritable bowel syndrome) Inguinal lymphadenitis Left ventricular dilatation Non-sustained ventricular tachycardia Palpitations Pectus excavatum Pre-syncope Seasonal allergies Family History Grandfather Cancer Parkinson disease Thyroid disorder Grandmother Cancer Osteoporosis Father Arthritis Myocardial infarction, Onset Age: 54 Cancer skin Spinal stenosis Heart disease atrial fib Mother Thyroid disorder Other CAD (coronary artery disease) Social History Smoking Status: Current some day smoker tobacco type: e-cigarettes alcohol intake: current alcohol intake frequency: a few times a week Alcohol type: beer substance use type: does not use what type of physical activity do you participate in: walking and running frequency: 3-4 times per week seatbelt use: always do you feel safe at home: Yes HPI HPI Chief Complaint: Routine FU. Details: PENG LORA, is a 23 M who presents to the office today for routine follow-up exam. He has been working steadily since I have last seen him, and has had several raises. He says I feel great! ROS Const Constitutional: No body ache, chills, excessive sweating, fatigue, fever(s), frequent falls, headache(s), snoring, weakness, sleep problems or change in appetite Eyes Eyes: No blurry vision, change in vision, eye pain or Light sensitivity ENT ENT: No abnormal hearing, ear or mastoid pain, tinnitus, nasal congestion, headache(s), neck pain or sore throat Resp Respiratory: No cough, shortness of breath, snoring or wheezing Cardio Cardiology: No chest pain at rest, chest pain with exertion, excessive sweating, shortness of breath, dyspnea on exertion, lightheadedness, orthopnea or palpitations Gastro GI: No abdominal pain, change in bowel habits, constipation, cramping, diarrhea, nausea/dyspepsia or vomiting Genitourinary Male: No burning urination, painful urination, urinary incontinence or urinary frequency Musc Musculoskeletal: No abnormal gait, joint pain, back pain, limited range of motion, neck pain or numbness Skin Skin: No dry skin, redness, lesions, itchy eyes, rash or wounds Neuro Neurology: No abnormal gait, abnormal hearing, weakness, frequent falls, headache(s), memory loss or numbness Psych Psychiatric: No anxiety, No change in appetite, No depression, No memory loss and No Thoughts of harming yourself/Others Endo Endocrine: No cold intolerance, excessive sweating, fatigue, flushing, heat intolerance, increased thirst/drinking or increased hunger Aller/Imm Allergy/Immunologic: No itchy eyes, seasonal allergy symptoms, hives or wheezing [place]/Lymp Hematologic/Lymphatic: No easy bleeding, easy bruising, enlarged lymph nodes or other Exam Const General: cooperative, comfortable and no acute distress Nutritional Appearance: average body habitus and well nourished Orientation: alert and oriented x3 Limitations: mental status not altered Other: Patient does have Marfan syndrome appearance HENMT Head: normal to inspection Ears: hearing grossly normal bilaterally (more content not included)... Normal [facility] Absolute lymphocyte countOrd ered By: Dr. Sultana on 04-19-2023 Lymphocytes Auto (Unsp spec) [#/Vol] 2.46 10*3/uL 0.83-4.51 [facility] Basophil percentageOrdered B y: Dr. Sultana on 04-19-2023 Basophils/100 WBC (Bld) 0.6 % 0-1 [facility] Bilirubin [Mass/Vol] 0.60 mg/dL 0.20-1.00 [facility] Comment on above: For patients on eltr ombopag therapy, use of Dimension [place] TBIL is not recommended. Chloride [Moles/Vol] 106 mmol/L 98-107 [facility] Eosinophils/100 WBC (Bld) 1.4 % 0-5 [facility] Glucose [Mass/Vol] 108 mg/dL 74-106 [facility] Comment on above: Fasting Glucose resu lt from 100 to 125 mg/dL suggests IMPAIRED HOMEOSTASIS per A.D.A. criteria. Neutrophils (Bld) [#/Vol] 4.9 10*3/uL 2.0-7.7 [facility] Neutrophils/100 WBC (Bld) 61.3 % 47-70 [facility] Potassium [Moles/Vol] 3.5 mmol/L 3.5-5.1 [facility] Protein [Mass/Vol] 7.6 g/dL 6.4-8.2 [facility] Sodium [Moles/Vol] 140 mmol/L 136-145 [facility] WBC (Bld) [#/Vol] 8.0 10*3/uL 4.4-11.0 [facility] Blood erythrocytes count (nu mber/volume)Ordered By: Dr. Sultana on 04-19-2023 RBC (Bld) [#/Vol] 5.21 10*6/uL 4.6-6.2 [facility] Blood hemoglobin measurement (mass/volume)Ordered By: Dr. Sultana on 04-19-2023 Hemoglobin (Bld) [Mass/Vol] 16.1 g/dL 13.0-16.5 [facility] Blood lymphocytes/100 leukoc ytesOrdered By: Dr. Sultana on 04-19-2023 Lymphocytes/100 WBC (Bld) 30.9 % 19-41 [facility] Blood monocytes/100 leukocyt esOrdered By: Dr. Sultana on 04-19-2023 Monocytes/100 WBC (Bld) 5.7 % 0-10 [facility] Blood platelet mean volumeOr dered By: Dr. Sultana on 04-19-2023 Platelet mean volume (Bld) [Entitic vol] 9.1 fL 6.2-12.0 [facility] Determination of erythrocyte mean corpuscular volume (MCV)Ordered By: Dr. Sultana on 04-19-2023 MCV (RBC) [Entitic vol] 93.1 fL 80-94 [facility] Hematocrit Auto (Bld) [Volum e fraction]Ordered By: Dr. Sultana on 04-19-2023 Hematocrit (Bld) [Volume fraction] 48.5 % 40-54 [facility] Laboratory - Chemistry and C hemistry - challengeOrdered By: Dr. Sultana on 04-19-2023 ALP [Catalytic activity/Vol] 69 U/L 45-117 [facility] ALT [Catalytic activity/Vol] 34 U/L 16-61 [facility] CO2 [Moles/Vol] 27.0 mmol/L 21.0-32.0 [facility] Globulin (S) [Mass/Vol] 3.6 g/dL 2.2-4.2 [facility] Magnesium [Mass/Vol] 2.0 mg/dL 1.6-2.6 [facility] Urea nitrogen/Creatinine [Mass ratio] 13.6 mg/mg 10-20 [facility] Laboratory - Hematology and Cell countsOrdered By: Dr. Sultana on 04-19-2023 Erythrocyte distribution width (RBC) [Entitic vol] 41.5 fL 35.1-43.9 [facility] Erythrocyte distribution width (RBC) [Ratio] 12.0 % 11.6-14.6 [facility] Immature granulocytes/100 WBC (Bld) 0.100 % 0.0-0.9 [facility] Comment on above: IG% - Immature Granu locytes (promyelocytes, myelocytes and metamyelocytes) > 1% indicates that a LEFT SHIFT is Present. MCH (RBC) [Entitic mass] 30.9 pg 27.0-32.0 [facility] Nucleated RBC/100 WBC (Bld) [Ratio] 0 % 0-5 [facility] MCHC Auto (RBC) [Mass/Vol]Or dered By: Dr. Sultana on 04-19-2023 MCHC (RBC) [Mass/Vol] 33.2 g/dL 32-36 [facility] No Panel InformationOrdered By: Dr. Sultana on 04-19-2023 Estimated Creatinine Clearance Calc 154.70 ml/min [facility] Estimated GFR (MDRD) Amer 152 mL/min >60 [facility] Comment on above: GFR Calc Estimated GFR (MDRD) Non-Af Amer 126 mL/min >60 [facility] Comment on above: Non- GFR Calc Troponin I High Sensitivity 3 pg/mL 3.0-78.0 [facility] Comment on above: Please Note: New Elif t Units and Gender Specific Reference Ranges. For more information see Policy Stat Procedure [place] High Sensitivity Troponin (TNIH) and attachments. Platelets bldOrdered By: Dr. Sultana on 04-19-2023 Platelets (Bld) [#/Vol] 331 10*3/uL 150-450 [facility] Serum or plasma albumin jordan urement (mass/volume)Ordered By: Dr. Sultana on 04-19-2023 Albumin [Mass/Vol] 4.0 g/dL 3.2-5.0 [facility] Serum or plasma albumin/glob ulin mass ratioOrdered By: Dr. Sultana on 04-19-2023 Albumin/Globulin [Mass ratio] 1.1 {ratio} 0.9-2.4 [facility] Serum or plasma calcium jordan urement (mass/volume)Ordered By: Dr. Sultana on 04-19-2023 Calcium [Mass/Vol] 8.7 mg/dL 8.5-10.1 [facility] Serum or plasma creatinine m easurement (mass/volume)Ordered By: Dr. Sultana on 04-19-2023 Creatinine [Mass/Vol] 0.81 mg/dL 0.70-1.30 [facility] Comment on above: The validity of the calculated GFR & GFRAA in patients over 70 years has not been determined. Clinical correlation is essential. Serum or plasma urea nitroge n measurement (mass/volume)Ordered By: Dr. Sultana on 04-19-2023 Urea nitrogen [Mass/Vol] 11 mg/dL 7-18 [facility] Thin prep Papanicolaou smear with manual screeningOrdered By: Dr. Sultana on 04-19-2023 Thin prep Papanicolaou smear with manual screening 27 U/L 15-37 [facility] Thin prep Papanicolaou smear with manual screening 7 5-15 [facility] Absolute lymphocyte countOrd ered By: Marisa Barroso on 04-11-2023 Lymphocytes Auto (Unsp spec) [#/Vol] 2.55 10*3/uL 0.83-4.51 [facility] Basophil percentageOrdered B y: Marisa Barroso on 04-11-2023 Basophils/100 WBC (Bld) 0.5 % 0-1 [facility] Chloride [Moles/Vol] 108 mmol/L 98-107 [facility] Eosinophils/100 WBC (Bld) 1.2 % 0-5 [facility] Glucose [Mass/Vol] 110 mg/dL 74-106 [facility] Comment on above: Fasting Glucose resu lt from 100 to 125 mg/dL suggests IMPAIRED HOMEOSTASIS per A.D.A. criteria. Neutrophils (Bld) [#/Vol] 5.2 10*3/uL 2.0-7.7 [facility] Neutrophils/100 WBC (Bld) 61.9 % 47-70 [facility] Potassium [Moles/Vol] 3.8 mmol/L 3.5-5.1 [facility] Sodium [Moles/Vol] 140 mmol/L 136-145 [facility] WBC (Bld) [#/Vol] 8.3 10*3/uL 4.4-11.0 [facility] Blood erythrocytes count (nu mber/volume)Ordered By: Marisa Barroso on 04-11-2023 RBC (Bld) [#/Vol] 5.34 10*6/uL 4.6-6.2 [facility] Blood hemoglobin measurement (mass/volume)Ordered By: Marisa Barroso on 04-11-2023 Hemoglobin (Bld) [Mass/Vol] 16.6 g/dL 13.0-16.5 [facility] Blood lymphocytes/100 leukoc ytesOrdered By: Marisa Barroso on 04-11-2023 Lymphocytes/100 WBC (Bld) 30.6 % 19-41 [facility] Blood monocytes/100 leukocyt esOrdered By: Marisa Barroso on 04-11-2023 Monocytes/100 WBC (Bld) 5.2 % 0-10 [facility] Blood platelet mean volumeOr dered By: Marisa Barroso on 04-11-2023 Platelet mean volume (Bld) [Entitic vol] 8.9 fL 6.2-12.0 [facility] Determination of erythrocyte mean corpuscular volume (MCV)Ordered By: Marisa Barroso on 04-11-2023 MCV (RBC) [Entitic vol] 91.4 fL 80-94 [facility] Hematocrit Auto (Bld) [Volum e fraction]Ordered By: Marisa Barroso on 04-11-2023 Hematocrit (Bld) [Volume fraction] 48.8 % 40-54 [facility] Laboratory - Chemistry and C hemistry - challengeOrdered By: Marisa Barroso on 04-11-2023 CO2 [Moles/Vol] 27.0 mmol/L 21.0-32.0 [facility] Free T4 [Mass/Vol] 1.00 ng/dL 0.76-1.[address] [facility] [address] [facility] Magnesium [Mass/Vol] 2.7 mg/dL 1.6-2.[address] [facility] Urea nitrogen/Creatinine [Mass ratio] 12.6 mg/mg 10-20 [facility] Laboratory - Hematology and Cell countsOrdered By: Marisa Barroso on 04-11-2023 Erythrocyte distribution width (RBC) [Entitic vol] 39.9 fL 35.1-43.9 [facility] Erythrocyte distribution width (RBC) [Ratio] 11.9 % 11.6-14.6 [facility] Immature granulocytes/100 WBC (Bld) 0.600 % 0.0-0.9 [facility] Comment on above: IG% - Immature Granu locytes (promyelocytes, myelocytes and metamyelocytes) > 1% indicates that a LEFT SHIFT is Present. MCH (RBC) [Entitic mass] 31.1 pg 27.0-32.0 [facility] Nucleated RBC/100 WBC (Bld) [Ratio] 0 % 0-5 [facility] MCHC Auto (RBC) [Mass/Vol]Or dered By: Marisa Barroso on 04-11-2023 MCHC (RBC) [Mass/Vol] 34.0 g/dL 32-36 [facility] No Panel InformationOrdered By: Marisa Barroso on 04-11-2023 Estimated GFR (MDRD) Amer 156 mL/min >60 [facility] Comment on above: GFR Calc Estimated GFR (MDRD) Non-Af Amer 129 mL/min >60 [facility] [facility] Comment on above: Non- GFR Calc Free Triiodothyronine (T3) pg/dL 3.0 pg/mL 2.18-3.98 [facility] Thyroid Stimulating Hormone (TSH) 0.76 uIU/mL 0.358-3.74 [facility] Platelets bldOrdered By: Vincenzo Barroso on 04-11-2023 Platelets (Bld) [#/Vol] 384 10*3/uL 150-450 [facility] Serum or plasma calcium jordan urement (mass/volume)Ordered By: Marisa Barroso on 04-11-2023 Calcium [Mass/Vol] 9.0 mg/dL 8.5-10.1 [facility] Serum or plasma creatinine m easurement (mass/volume)Ordered By: Marisa Barroso on 04-11-2023 Creatinine [Mass/Vol] 0.79 mg/dL 0.70-1.30 [facility] Comment on above: The validity of the calculated GFR & GFRAA in patients over 70 years has not been determined. Clinical correlation is essential. Serum or plasma urea nitroge n measurement (mass/volume)Ordered By: Marisa Barroso on 04-11-2023 Urea nitrogen [Mass/Vol] 10 mg/dL 7-18 [facility] Thin prep Papanicolaou smear with manual screeningOrdered By: Marisa Barroso on 04-11-2023 Thin prep Papanicolaou smear with manual screening 5 -15 [facility] Basic Metabolic Panlon 11-16 Anion gap [Moles/Vol] 11 mmol/L Normal 9-18 [facility] Comment on above: Performed By: #### B KRAIG MG1 #### [facility] [address] [place], [place] [address] Calcium [Mass/Vol] 9.5 mg/dL Normal 8.5-10.2 [facility] Comment on above: Performed By: #### Jose CORNELL MG1 #### [facility] [address] [place], [place] [address] Chloride [Moles/Vol] 102 mmol/L Normal 97-105 [facility] Comment on above: Performed By: #### B KRAIG MG1 #### [facility] [address] [place], [place] [address] CO2 [Moles/Vol] 27 mmol/L Normal 22-30 [facility] Comment on above: Performed By: #### B KRAIG, MG1 #### [facility] [address] [place], [place] [address] Creatinine [Mass/Vol] 0.64 mg/dL Low 0.73-1.22 [facility] Comment on above: Performed By: #### B KRAIG MG1 #### [facility] [address] [place], [place] [id number] eGFR- Amer. >60 Normal [facility] Comment on above: Performed By: #### B KRAIG, MG1 #### [facility] [address] [place], [place] [id number] eGFR-All Other Races >60 Normal [facility] Comment on above: Result Comment: eGFR (Estimated GFR) Units of measure: mL/min/1.73 meters squared eGFR is derived from the reexpressed MDRD Study equation using the following parameters: serum creatinine, age, gender and race. The creatinine assay has been calibrated to be traceable to IDMS. An eGFR <60 mL/min/1.73m2 for >3 months is consistent with chronic kidney disease. Refer to KDOQI guidelines for clinical interpretation. In patients with unstable renal function, e.g. those with acute kidney injury, the eGFR may not accurately reflect actual GFR. Note: On 01/27/2022, the eGFR calculation will be updated to the NKF-ASN Task Force recommended 2020 CKD-EPI creatinine equation which does not include a race variable. For more information or to access a 2020 CKD-EPI calculator, visit the National Kidney Foundation website at kidney.org/professionals/kdoqi/gfr_calculator. Performed By: #### B KRAIG MG1 #### [facility] [address] [place], [place] [id number] Glucose [Mass/Vol] 87 mg/dL Normal 74-99 [facility] Comment on above: Result Comment: The [place] Diabetes Association (ADA) provides guidance for cutoff values for fasting glucose and random glucose. The ADA defines fasting as no caloric intake for at least 8 hours. Fasting plasma glucose results between 100 to 125 mg/dL indicate increased risk for diabetes (prediabetes). Fasting plasma glucose results greater than or equal to 126 mg/dL meet the criteria for diagnosis of diabetes. In the absence of unequivocal hyperglycemia, results should be confirmed by repeat testing. In a patient with classic symptoms of hyperglycemia or hyperglycemic crisis, random plasma glucose results greater than or equal to 200 mg/dL meet the criteria for diagnosis of diabetes. Reference: Standards of Medical Care in Diabetes 2016, [place] [employer]. Diabetes Care. 2016.39(Suppl 1). Performed By: #### B MP, MG1 #### [facility] [address] [place], [place] [address] Potassium [Moles/Vol] 3.9 mmol/L Normal 3.7-5.1 [facility] Comment on above: Performed By: #### B MP, MG1 #### [facility] [address] [place], [place] [address] Sodium [Moles/Vol] 140 mmol/L Normal 136-144 [facility] Comment on above: Performed By: #### B MP, MG1 #### [facility] [address] [place] [phone] Urea nitrogen [Mass/Vol] 15 mg/dL Normal 9-24 [facility] Comment on above: Performed By: #### B MP, MG1 #### [facility] [address] [place] [id number] CNDSon 11-16-2021 [facility] HNO ID: [id number] Author: Samanta Arguello APRN.GAS SHOVEL OPERATOR Service: Cardiovascular Medicine Author Type: Nurse Practitioner Type: Discharge Summary Filed: 11/16/2021 9:22 PM Note Text: Attestation signed by Richmond Van MD at 11/17/2021 10:41 AM [facility] STAFF PHYSICIAN NOTE OF PERSONAL INVOLVEMENT IN CARE I have seen and examined the patient with the Nurse Practitioner. I agree with the Nurse Practitioner's assessment and plan with the following additions/changes: IMPRESSION: Patient is a 21 year old male with no significant past medical history, admitted with syncope and palpitations. Clinically, syncopal event highly suggestive of vasovagal etiology (in the setting of alcohol use, following micturition, preceded by a prodrome, brief in duration and associated with diaphoresis and post-syncopal fatigue). Cause of palpitations unclear (prior 30d monitor with one brief run of NSVT but otherwise not very informative). TTE on admission was reassuring with no significant abnormalities. Recommend D/C home with supportive care, hydration and avoidance of excessive alcohol use. Consider compression stockings. During prodrome, patient to lie down (with legs up on a chair) for 20min. 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 If episodes recur, may also consider tilt table testing. No indication for medical therapy (e.g. midodrine) at this time. PLAN: See DC summary. I have reviewed the documentation obtained and documented by the Nurse Practitioner and have reviewed and updated the problem list as appropriate. I have personally performed a face to face assessment of the patient and have personally participated in the jaramillo components. I have discussed the case and management of the patient's care. Discharge Management: I personally spent 10 minutes in the discharge management of this patient. STAFF PHYSICIAN: Richmond Van MD DATE OF SERVICE: November 17, 2021 TIME OF SERVICE: 10:40 AM Department of Cardiovascular Medicine Discharge Summary (Template ID [id number]) PATIENT NAME: Peng Lora ADMISSION DATE: 11/15/2021 DISCHARGE DATE: 11/16/2021 Attending Physician: No att. providers found Code Status: Not on file Primary Service: Hvi Electrophysiology Admission Diagnosis: Syncope with palpitations Discharge Diagnosis: Syncope with palpitations Secondary Diagnoses: Patient Active Hospital Problem List: Syncope (11/15/2021) Palpitations (11/15/2021) Alcohol use (11/15/2021) Nicotine use disorder, F17.2 (11/16/2021) Reason for Hospitalization: This is a 21 year old male that presented to an outside hospital on 11/13 with palpitations and syncopal event in setting of alcohol use. Patient has no significant past medical history, but follows with a treasury analyst in [place] for palpitations. Prior 30-day monitor with one brief fun of NSVT but otherwise unremarkable. Hospital Course: Patient evaluated overnight, no events on telemetry. Echocardiogram unremarkable. Syncopal event suggestive of vasovagal etiology as patient reports feeling the event coming on, becoming diaphoretic, and feeling fatigued afterward. Patient educated to keep hydrated, avoid excessive alcohol use, use of compression stockings and to lie down with legs elevated for 20 minutes during prodrome. Suggested tilt table test if episodes recur. BP 113/72 Pulse 70 Temp 36.7 ?C (98.1 ?F) (Oral) Resp 20 Ht 193 cm (6' 4) Wt 72.1 kg (158 lb 14.4 oz) SpO2 99% BMI 19.34 kg/m? General Appearance: Well developed, Well nourished and No distress HEENT: PERRLA, EOM's intact and No lesions Lungs: Clear and Respiratory effort: normal Heart: Regular rate AND rhythm, No heaves, No lifts, No thrills, S1, S2 normal and no Edema Abdomen: Soft, Round, Non-tender and Non-distended Skin: Warm, Dry and No rash on chest, arms or legs Musculoskeletal: No deformities and No joint deformities, LE equally Neurologic/Psychiatric: Oriented to time, place AND person , Alert and No gross focal neurologic deficits Consults: None Major Procedure or Operation: None Other Procedures, Testing AND Radiology: EKG, echocardiogram Patient Condition at Discharge: Stable Disposition: Home with Self Care Information Provided to the Patient: Patient given copy of After Visit Summary which included activity instructions, diet instructions, wound care instructions, medication instructions and follow up appointment. ALLERGIES Allergen Reactions - Cephalexin Rash Discharge Medications: There are no discharge medications for this patient. Transitions of Care Critical Issues: Outpatient Management: * Are there important medication changes and/or outstanding issues that need to (more content not included)... Normal [facility] Confirm Blood Typeon 021 ABO/RH(D) Positive Normal [facility] Comment on above: Performed By: #### C ONABO #### [facility] [address] [place], [place] [address] Magnesiumon 11-16-2021 Magnesium [Mass/Vol] 2.4 mg/dL High 1.7-2.3 [facility] Comment on above: Performed By: #### B MP, MG1 #### [facility] [address] [place], [place] [address] NURSING PROGon 11-16-2021 NURSING PROG HNO ID: [id number] Author: Solange Salmon RN Service: ? Author Type: Registered Nurse Type: Nursing Progress Note Filed: 11/16/2021 4:13 PM Note Text: Nursing Progress Note Patient Name: Peng Lora Patient Location: [address] Transfer Note: Patient transferred out to room/unit home in stable condition. Actions taken: Patient belongings with patient and DC instructions reviewed with patient and family. This note was completed by: Solange Nick [facility] NUTRITIONon 11-16-2021 NUTRITION HNO ID: [id number] Author: Marbella Soto RD Service: Nutrition Therapy Author Type: Registered Dietitian Type: Nutrition Filed: 11/16/2021 1:08 PM Note Text: NUTRITION THERAPY SCREEN NOTE SERVICE DATE: 11/16/2021 SERVICE TIME: 9:15 am Care Plan: Continue current diet (regular) Supplements: Mighty Shake No Sugar Added Refer to: Gut Carrier to Follow HPI: Per note from Samanta Arguello APRN.GAS SHOVEL OPERATOR on 11/16, CHIEF COMPLAINT Syncope tx from [facility] ED ? HISTORY OF PRESENT ILLNESS Peng Lora is a 21 year old male that presented to an outside hospital on 11/13 with palpitations. He has a history of palpitations and follows with a treasury analyst in [place], but reports this is the first time he has had syncope with his palpitations. Discharge Recommendations: Diet;Oral Supplements Diet: regular or as per primary Oral Supplements: as needed when meeting <75% estimated needs Intake History: Nutrition Intake Prior to Admission: Greater than 75% estimated energy needs greater than or equal to 1 month (patient reports stable appetite, grazes throughout the day) Diet Orders (From admission, onward) Start Ordered 11/15/21 1715 DIET REGULAR START NOW 11/15/21 1705 Anthropometrics: Height: 193 cm (6' 4) Weight: 72.1 kg (158 lb 14.4 oz) Usual Weight: 74.8 kg (165 lb) Weight change percentage over time: 4% loss within the past month, concerning but not clinically significant Patient appears thin, also reports very physically active at his job. Aware he may need to eat more calories to sustain/ gain weight. MNT Billing: $ Initial Assessment: 1-15 minutes SIGNATURE: Marbella Soto RD PATIENT NAME: Peng Lora DATE: November 16, 2021 TIME: 1:07 PM Normal [facility] CBC and Differentialon 11-15 Abs Baso 0.07 k/uL Normal <0.11 [facility] Comment on above: Performed By: #### M G1, CBCDIF, CMP #### [facility] [address] [place], [place] [phone] Abs [place] 0.83 k/uL Normal <0.87 [facility] Comment on above: Performed By: #### M G1, CBCDIF, CMP #### [facility] [address] [place], [place] [id number] Abs Neut 7.66 k/uL High 1.45-7.50 [facility] Comment on above: Performed By: #### M G1, CBCDIF, CMP #### [facility] [address] [place], [place] [phone] Absolute nRBC <0.01 Normal <0.01 [facility] Comment on above: Performed By: #### M G1, CBCDIF, CMP #### [facility] [address] [address] Basophils/100 WBC (Bld) 0.6 % Normal C [facility] Comment on above: Performed By: #### M G1, CBCDIF, CMP #### [place] [address] [place] [phone] DTYPE Auto Diff Normal [facility] Comment on above: Performed By: #### M G1, CBCDIF, CMP #### [place] [address] [phone] Eosinophils (Bld) [#/Vol] 0.16 10*3/uL Normal <0.46 [facility] Comment on above: Performed By: #### M G1, CBCDIF, CMP #### [place] [phone] Eosinophils/100 WBC (Bld) 1.4 % Normal [facility] Comment on above: Performed By: #### M G1, CBCDIF, CMP #### [place] [address] [place] [phone] Erythrocyte distribution width (RBC) [Ratio] 11.9 % Normal 11.5-15.0 [facility] Comment on above: Performed By: #### M G1, CBCDIF, CMP #### [place] [address] [place] [phone] Hematocrit (Bld) [Volume fraction] 46.4 % Normal 39.0-51.0 [facility] Comment on above: Performed By: #### M G1, CBCDIF, CMP #### [place] [address] [place] [phone] Hemoglobin (Bld) [Mass/Vol] 15.6 g/dL Normal 13.0-17.0 [facility] Comment on above: Performed By: #### M G1, CBCDIF, CMP #### [place] [address] [place] [address] Lymphocytes (Bld) [#/Vol] 2.47 10*3/uL Normal 1.00-4.00 [facility] Comment on above: Performed By: #### M G1, CBCDIF, CMP #### [place] [address] [place] [phone] Lymphocytes/100 WBC (Bld) 22.1 % Normal [facility] Comment on above: Performed By: #### M G1, CBCDIF, CMP #### [place] [address] MCH 31.0 pG Normal 26.0-34.0 [facility] Comment on above: Performed By: #### M G1, CBCDIF, CMP #### [place] [address] MCHC (RBC) [Mass/Vol] 33.6 g/dL Normal 30.5-36.0 [facility] Comment on above: Performed By: #### M G1, CBCDIF, CMP #### [place] [address] MCV (RBC) [Entitic vol] 92.2 fL Normal 80.0-100.0 C [facility] Comment on above: Performed By: #### M G1, CBCDIF, CMP #### [place] [address] Monocytes/100 WBC (Bld) 7.4 % Normal C [facility] Comment on above: Performed By: #### M G1, CBCDIF, CMP #### [place] [address] Neutrophils/100 WBC (Bld) 68.5 % Normal [facility] Comment on above: Performed By: #### M G1, CBCDIF, CMP #### [address], [place] [address] NRBCs 0.0 /100 WBC Normal 0 [facility] Comment on above: Performed By: #### M G1, CBCDIF, CMP #### [place] [address] [place], [place] [address] Platelet mean volume (Bld) [Entitic vol] 9.8 fL Normal 9.0-12.7 [facility] Comment on above: Performed By: #### M G1, CBCDIF, CMP #### [place] [address] [place], [place] [address] Platelets (Bld) [#/Vol] 372 10*3/uL Normal 150-400 [facility] Comment on above: Performed By: #### M G1, CBCDIF, CMP #### [address] [address] RBC (Bld) [#/Vol] 5.03 10*6/uL Normal 4.20-6.00 [facility] Comment on above: Performed By: #### M G1, CBCDIF, CMP #### [place] [address] [place], [place] [address] WBC (Bld) [#/Vol] 11.19 10*3/uL High 3.70-11.00 [facility] Comment on above: Performed By: #### M G1, CBCDIF, CMP #### [place] [address] [place], [place] [address] Comp Metabolic Panelon 11-15 Albumin [Mass/Vol] 5.0 g/dL High 3.9-4.9 [facility] Comment on above: Performed By: #### M G1, CBCDIF, CMP #### [place] [address] [place], [place] [address] ALP [Catalytic activity/Vol] 91 U/L Normal 38-113 [facility] Comment on above: Performed By: #### M G1, CBCDIF, CMP #### [facility] [address] [place], [place] [address] ALT [Catalytic activity/Vol] 21 U/L Normal 10-54 [facility] Comment on above: Performed By: #### M G1, CBCDIF, CMP #### [facility] [address] [place], [place] [address] Anion gap [Moles/Vol] 14 mmol/L Normal 9-18 [facility] Comment on above: Performed By: #### M G1, CBCDIF, CMP #### [facility] [address] [place], [place] [address] AST [Catalytic activity/Vol] 27 U/L Normal 14-40 [facility] Comment on above: Result Comment: Resu lts may be falsely increased due to interference by hemolysis. Suggest reorder as clinically indicated. Performed By: #### M G1, CBCDIF, CMP #### [facility] [address] [place], [place] [address] Bilirubin [Mass/Vol] 0.8 mg/dL Normal 0.2-1.3 [facility] Comment on above: Performed By: #### M G1, CBCDIF, CMP #### [facility] [address] [place], [place] [address] Calcium [Mass/Vol] 9.5 mg/dL Normal 8.5-10.2 [facility] Comment on above: Performed By: #### M G1, CBCDIF, CMP #### [facility] [address] [place], [place] [address] Chloride [Moles/Vol] 102 mmol/L Normal 97-105 [facility] Comment on above: Performed By: #### M G1, CBCDIF, CMP #### [facility] [address] [place], [place] [address] CO2 [Moles/Vol] 23 mmol/L Normal 22-30 [facility] Comment on above: Performed By: #### M G1, CBCDIF, CMP #### [facility] [address] [place], [place] [address] Creatinine [Mass/Vol] 0.69 mg/dL Low 0.73-1.22 [facility] Comment on above: Performed By: #### M G1, CBCDIF, CMP #### [facility] [address] [place] [address] eGFR- Amer. >60 Normal [facility] Comment on above: Performed By: #### M G1, CBCDIF, CMP #### [facility] [address] [place] [address] eGFR-All Other Races >60 Normal [facility] Comment on above: Result Comment: eGFR (Estimated GFR) Units of measure: mL/min/1.73 meters squared eGFR is derived from the reexpressed MDRD Study equation using the following parameters: serum creatinine, age, gender and race. The creatinine assay has been calibrated to be traceable to IDMS. An eGFR <60 mL/min/1.73m2 for >3 months is consistent with chronic kidney disease. Refer to KDOQI guidelines for clinical interpretation. In patients with unstable renal function, e.g. those with acute kidney injury, the eGFR may not accurately reflect actual GFR. Note: On 01/27/2022, the eGFR calculation will be updated to the NKF-ASN Task Force recommended 2020 CKD-EPI creatinine equation which does not include a race variable. For more information or to access a 2020 CKD-EPI calculator, visit the National Kidney Foundation website at kidney.org/professionals/kdoqi/gfr_calculator. Performed By: #### M G1, CBCDIF, CMP #### [facility] [address] [place], [place] [address] Glucose [Mass/Vol] 105 mg/dL High 74-99 [facility] Comment on above: Result Comment: The [place] Diabetes Association (ADA) provides guidance for cutoff values for fasting glucose and random glucose. The ADA defines fasting as no caloric intake for at least 8 hours. Fasting plasma glucose results between 100 to 125 mg/dL indicate increased risk for diabetes (prediabetes). Fasting plasma glucose results greater than or equal to 126 mg/dL meet the criteria for diagnosis of diabetes. In the absence of unequivocal hyperglycemia, results should be confirmed by repeat testing. In a patient with classic symptoms of hyperglycemia or hyperglycemic crisis, random plasma glucose results greater than or equal to 200 mg/dL meet the criteria for diagnosis of diabetes. Reference: Standards of Medical Care in Diabetes 2016, [place] [employer]. Diabetes Care. 2016.39(Suppl 1). Performed By: #### M G1, CBCDIF, CMP #### [facility] [address] [place] [address] Potassium [Moles/Vol] 3.8 mmol/L Normal 3.7-5.1 [facility] Comment on above: Performed By: #### M G1, CBCDIF, CMP #### [place] [address] [place] [address] Protein [Mass/Vol] 8.0 g/dL Normal 6.3-8.0 [facility] Comment on above: Performed By: #### M G1, CBCDIF, CMP #### [facility] [address] [place] [address] Sodium [Moles/Vol] 139 mmol/L Normal 136-144 [facility] Comment on above: Performed By: #### M G1, CBCDIF, CMP #### [facility] [address] [place] [id number] Urea nitrogen [Mass/Vol] 13 mg/dL Normal 9-24 [facility] Comment on above: Performed By: #### M G1, CBCDIF, CMP #### [facility] [address] [place] [address] Expedited [id number] 11-15-20 21 SARS-CoV-2 (COVID-19) RNA EMILEE+probe Ql (Unsp spec) UPPER RESPIRATORY TRACT SWAB Normal [facility] Comment on above: Performed By: #### E XCOVD #### [facility] [address] [place] [id number] SARS-CoV-2 (COVID-19) RNA EMILEE+probe Ql (Unsp spec) Negative for COVID19 (SARS CoV2) by RT-PCR or equivalent method. Normal Negative for COVID19 (SARS CoV2) by RT-PCR or equivalent method. [facility] Comment on above: Result Comment: This test has been authorized by FDA under an Emergency Use Authorization (EUA). Test performed by [facility], [address] [facility] [place], [address] [place], [place] [address]. Performed By: #### E XCOVD #### [place] [id number] HISTORY PHYSICALon HISTORY PHYSICAL HNO ID: [id number] Author: Samanta Arguello APRN.GAS SHOVEL OPERATOR Service: Electrophysiology Author Type: Nurse Practitioner Type: HANDP Filed: 11/16/2021 7:21 AM Note Text: Attestation signed by Richmond Van MD at 11/16/2021 1:49 PM [facility] STAFF PHYSICIAN NOTE OF PERSONAL INVOLVEMENT IN CARE I have seen and examined the patient with the Nurse Practitioner. I agree with the Nurse Practitioner's assessment and plan with the following additions/changes: IMPRESSION: Patient is a 21 year old male with no significant past medical history, admitted with syncope and palpitations. Clinically, syncopal event highly suggestive of vasovagal etiology (in the setting of alcohol use, following micturition, preceded by a prodrome, brief in duration and associated with diaphoresis and post-syncopal fatigue). Cause of palpitations unclear (prior 30d monitor with one brief run of NSVT but otherwise not very informative). Today's TTE was reassuring with no significant abnormalities. Recommend D/C home with supportive care, hydration and avoidance of excessive alcohol use. Consider compression stockings. During prodrome, patient to lie down (with legs up on a chair) for 20min. 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 If episodes recur, may also consider tilt table testing. No indication for medical therapy (e.g. midodrine) at this time. PLAN: See above. I have reviewed the documentation obtained and documented by the Nurse Practitioner and have reviewed and updated the problem list as appropriate. I have personally performed a face to face assessment of the patient and have personally participated in the jaramillo components. I have discussed the case and management of the patient's care. Counseling (Inpatient): I personally spent 40 total minutes involved in the care of this patient. Greater than 50% of the time was spent counseling and/or coordinating care for the patient, the nature of which is noted above. STAFF PHYSICIAN: Richmond Van MD DATE OF SERVICE: November 16, 2021 TIME OF SERVICE: 1:42 PM [facility]IC[facility] HISTORY AND PHYSICAL (Template ID [id number]) Peng Lora [id number] PRIMARY SERVICE: Cardiovascular Medicine: Electrophysiology DATE OF ADMISSION: 11/15/2021 CHIEF COMPLAINT Syncope tx from [facility] ED HISTORY OF PRESENT ILLNESS Peng Lora is a 21 year old male that presented to an outside hospital on 11/13 with palpitations. He has a history of palpitations and follows with a treasury analyst in [place], but reports this is the first time he has had syncope with his palpitations. He reports having chest pain on and off with exertion, not always correlating with the palpitations. 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 On 11/13/2021, he reports having a syncopal event while out having drinks with a friend. He stated he began having palpitations and his friend noticed he became flushed in the face. He got up to go to the restroom and on his way back he had a syncapal episode. He stated everything went black and he fell to the ground. He stated he lost consciousness for just a few seconds and he recalls the event. Later that night he experienced palpitations while watching a movie. The following day he experienced more frequent palpations while at work. He was informed by his primary treasury analyst to present to the ED for an EKG the next time he experiences palpitations. 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 His vital signs were stable. Chest x-ray was negative. Lab work unremarkable. Tox screen positive for high levels of alcohol. EKG from chart states sinus rhythm RSR prime in V1 or V2, EKG not available in epic for review. [facility]. PAST MEDICAL HISTORY PAST MEDICAL HISTORY Diagnosis Date - Palpitations No past surgical history on file. FAMILY HISTORY No family history on file. SOCIAL HISTORY Social History Tobacco Use - Smoking status: Not on file - Smokeless tobacco: Not on file Substance Use Topics - Alcohol use: Not on file - Drug use: Not on file HOME MEDICATIONS No prescriptions on file. INPATIENT MEDICATIONS Current Facility-Administered Medications Medication Dose Route Frequency - acetaminophen 650 mg tab(s) (TYLENOL) 650 mg ORAL q 4 H PRN - docusate sodium 100 mg cap(s) (COLACE) 100 mg ORAL BID PRN - NaCl 0.9% iv flush bag 20 mL INTRAVENOUS PRN - sodium chloride 0.9 % (flush) 3-5 mL (BD POSIFLUSH) 3-5 mL INTRAVENOUS q 12 H - sodium chloride 0.9 % (flush) 2-10 mL (BD POSIFLUSH) 2-10 mL INTRAVENOUS DIRECTED PRN And - perflutren lipid microspheres 1.1 mg/mL 1.3 mL injecti (more content not included)... Normal [facility] Magnesiumon 11-15-2021 Magnesium [Mass/Vol] 2.5 mg/dL High 1.7-2.3 [facility] Comment on above: Performed By: #### M G1, CBCDIF, CMP #### [facility] [address] [place], [place] [address] NURSING PROGon 11-15-2021 NURSING PROG HNO ID: [id number] Author: Harry Croft RN Service: Nursing Author Type: Registered Nurse Type: Nursing Progress Note Filed: 11/15/2021 7:31 PM Note Text: Nursing Progress Note Patient Name: Peng Lora Patient Location: [address]05-02-11 Transfer Note: Patient transferred into room[facility]unit J[facility] in stable condition. Actions taken: Patient oriented to room, call light and setting. Skin assessment completed. This note was completed by: Harry Croft Normal [facility] Toxicology Screen,Uron 11-15 Amphetamines, Urine Negative Normal Negative [facility] Comment on above: Result Comment: Cuto ff threshold at 1000 ng/mL. Performed By: #### U TOX2 #### [facility] [address] [phone] Barbiturates, Urine Negative Normal Negative [facility] Comment on above: Result Comment: Cuto ff threshold at 200 ng/mL. Performed By: #### U TOX2 #### [facility] [address] [address] Benzodiazepines, Ur Negative Normal Negative [facility] Comment on above: Result Comment: Cuto ff threshold at 200 ng/mL. Performed By: #### U TOX2 #### [facility] [address] [address] Cannabinoids, Urine Negative Normal Negative [facility] Comment on above: Result Comment: Cuto ff threshold at 50 ng/mL. Performed By: #### U TOX2 #### [facility] [address] [phone] Cocaine, Urine Negative Normal Negative [facility] Comment on above: Result Comment: Cuto ff threshold at 300 ng/mL. Performed By: #### U TOX2 #### [facility] [address] [address] Ethanol, Urine <11 Normal <11 [facility] Comment on above: Performed By: #### U TOX2 #### [facility] [address] [address] Opiates, Urine Negative Normal Negative [facility] Comment on above: Result Comment: Cuto ff threshold at 300 ng/mL. Performed By: #### U TOX2 #### [place] [address] Oxycodone, Urine Negative Normal Negative [facility] Comment on above: Result Comment: Cuto ff threshold at 100 ng/mL. Comment: Immunoassay screen only. Cross reactivity with other substances can occur with immunoassay screening. Detection of any drug(s) in this urine toxicology panel is presumptive only. These tests are for medical purposes only and should not be used for compliance monitoring, legal, or forensic use. Samples should be within normal physiological conditions (e.g. pH). This assay does not include adulteration/specimen validity testing. In clinical settings, confirmatory testing is at the practitioner's discretion [1]. If clinically indicated, confirmation by high specificity, quantitative methodology, which includes adulteration/specimen validity testing, may be requested on the same specimen through Client Services ([phone]) if contacted within 48 hours of initial testing. [1]Substance Abuse and Mental Health Services Administration (2012). Clinical Drug Testing in Primary Care Technical Assistance Publication Series 32. Department of Health and Human Services, [place], p.10. Performed By: #### U TOX2 #### [address] [place] [address] Phencyclidine, Urine Negative Normal Negative [facility] Comment on above: Result Comment: Cuto ff threshold at 25 ng/mL. Performed By: #### U TOX2 #### [address] [place] [address] Type and Screenon 11-15-2021 ABO/RH(D) Positive Normal [facility] Comment on above: Performed By: #### T SCR #### [facility] [address] [place], [place] [address] Basic Metabolic Panelon 11-01 Anion gap [Moles/Vol] 4 mmol/L Normal 3-13 [facility] Comment on above: Performed By: #### T JOAQUIN, BMP3 #### [facility] [address] [place] [address] Calcium [Mass/Vol] 9.5 mg/dL Normal 8.4-10.4 [facility] Comment on above: Performed By: #### T JOAQUIN, BMP3 #### [facility] [address] [place] [address] CO2 [Moles/Vol] 28 mmol/L Normal 22-30 [facility] Comment on above: Performed By: #### T JOAQUIN, BMP3 #### [facility] [address] [place] [address] Creatinine [Mass/Vol] 0.67 mg/dL Normal 0.52-1.25 [facility] Comment on above: Performed By: #### T JOAQUIN, BMP3 #### [facility] [address] [place] [address] eGFR OTHER > 90.0 Normal >60 [facility] Comment on above: Result Comment: KDIG O guidelines provide the following GFR categories: Stage GFR(ml/min/1.73 m2) Terms G1 >=90 Normal or high G2 60-89 Mildly decreased* G3a 45-59 Mildly to moderately decreased G3b 30-44 Moderately to severely decreased G4 15-29 Severely decreased G5 <15 Kidney failure *Relative to young adult level. In the absence of evidence of kidney damage, neither GFR category G1 nor G2 fulfill the criteria for CKD. The CKD-EPI equation is validated in individuals 18 years of age and older. Currently the best equation for estimating glomerular filtration rate (GFR) from serum creatinine in children is the Bedside Hinton equation. It is less accurate in patients with extremes of muscle mass, restriction of dietary protein, ingestion of creatine, extra-renal metabolism of creatinine, or treatment with medications that affect renal tubular creatinine secretion. Performed By: #### Rocio NUÑEZ BMP3 #### [facility] [address] [place] [address] GFR/1.73 sq M.predicted among blacks MDRD (S/P/Bld) [Vol rate/Area] mL/min/{1.73_m2} Normal >60 [facility] Comment on above: Performed By: #### Rocio NUÑEZ BMP3 #### [facility] [address] [place] [address] Glucose [Mass/Vol] 100 mg/dL Normal 70-100 [facility] Comment on above: Performed By: #### Rocio NUÑEZ BMP3 #### [facility] [address] [place] [address] Urea nitrogen [Mass/Vol] 9 mg/dL Normal 7-17 [facility] Comment on above: Performed By: #### Rocio NUÑEZ BMP3 #### [facility] [address] [place] [address] Chloride [Moles/Vol] 106 mmol/L Normal 98-107 [facility] Comment on above: Performed By: #### CHRISTIE ANGULO3 #### [facility] [address] [place] [address] Potassium [Moles/Vol] 3.7 mmol/L Normal 3.5-5.1 [facility] Comment on above: Performed By: #### Rocio NUÑEZ BMP3 #### [facility] [address] [place] [address] Sodium [Moles/Vol] 139 mmol/L Normal 135-145 [facility] Comment on above: Performed By: #### Rocio NUÑEZ BMP3 #### [facility] [address] [place] [address] Anion gap [Moles/Vol] 4 mmol/L 3 - 13 mmol/L [facility] Work Phone: Calcium [Mass/Vol] 9.5 mg/dL 8.4 - 10. 4 mg/dL [facility] Work Phone: Chloride [Moles/Vol] 106 mmol/L 98 - 10 7 mmol/L [facility] Work Phone: ) [phone] CO2 [Moles/Vol] 28 mmol/L 22 - 30 mmol/L [facility] Work Phone: ) 222 Creatinine [Mass/Vol] 0.67 mg/dL 0.52 - 1.25 mg/dL [facility] Work Phone: [phone] EGFR IF NonAfrican Maldivian >90.0 >60 mL/min [facility] Work Phone: ) [phone] Comment on above: KDIGO guidelines pro vide the following GFR categories: Stage GFR(ml/min/1.73 m2) Terms G1 >=90 Normal or high G2 60-89 Mildly decreased* G3a 45-59 Mildly to moderately decreased G3b 30-44 Moderately to severely decreased G4 15-29 Severely decreased G5 <15 Kidney failure *Relative to young adult level. In the absence of evidence of kidney damage, neither GFR category G1 nor G2 fulfill the criteria for CKD. The CKD-EPI equation is validated in individuals 18 years of age and older. Currently the best equation for estimating glomerular filtration rate (GFR) from serum creatinine in children is the Bedside Hinton equation. It is less accurate in patients with extremes of muscle mass, restriction of dietary protein, ingestion of creatine, extra-renal metabolism of creatinine, or treatment with medications that affect renal tubular creatinine secretion. GFR/1.73 sq M.predicted among blacks MDRD (S/P/Bld) [Vol rate/Area] mL/min/{1.73_m2} >60 mL/min [facility] Work Phone: ) [phone] Glucose [Mass/Vol] 100 mg/dL 70 - 100 mg/dL [facility] Work Phone: ) [phone] Potassium [Moles/Vol] 3.7 mmol/L 3.5 - 5.1 mmol/L [facility] Work Phone: [phone] Sodium [Moles/Vol] 139 mmol/L 135 - 145 mmol/L [facility] Work Phone: [phone] Urea nitrogen (BldV) [Mass/Vol] 9 mg/dL 7 - 17 mg/dL [facility] Work Phone: [phone] Test Performed by [facility], [address] , [address] LAB [facility] Work Phone: CR Chest Portableon 11-13-20 21 CR Chest Portable Patient Name: PENG LORA Diagnostic Radiology ACCESSION EXAM DATE/TIME PROCEDURE ORDERING PROVIDER [id number] 11/13/2021 13:02 EST CR Chest Portable MD W[place] VIJAY CPT code 00891 Reason For Exam (CR Chest Portable) palpitations Report PORTABLE CHEST X-RAY CLINICAL INDICATION: Palpitations A portable frontal view of the chest was obtained. COMPARISON: None FINDINGS: The cardiac silhouette is within normal limits. No focal consolidation is seen within the lungs. There is no large pleural effusion or pneumothorax. The bony structures of the chest are unremarkable as visualized. IMPRESSION: No acute cardiopulmonary disease. Report Dictated on Final Dictating Physician: MD SOTELO JONATHAN R Signed Date and Time: 11/13/2021 1:05 pm Signed by: MD SOTELO JONATHAN R Transcribed Date and Time: 11/13/2021 1:06 Normal [facility] Troponin Ion 11-13-2021 Troponin I.cardiac [Mass/Vol] ng/mL Normal 0.000-0.034 [facility] Comment on above: Result Comment: . Performed By: #### T JOAQUIN [facility] #### [facility] [place] [address] Troponin x1on 11-13-2021 Troponin I.cardiac [Mass/Vol] ng/mL 0.000 - 0.034 ng/mL [facility] Work Phone: Comment on above: . Test Performed by [facility], [address] , [address] LAB [facility] Work Phone: XR CHEST PORTABLEon 11-13-20 21 Patient Name: PENG LORA Diagnostic Radiology ACCESSION EXAM DATE/TIME PROCEDURE ORDERING PROVIDER [id number] 11/13/2021 13:02 EST CR Chest Portable MD [place] VIJAY CPT code 62813 Reason For Exam (CR Chest Portable) palpitations Report PORTABLE CHEST X-RAY CLINICAL INDICATION: Palpitations A portable frontal view of the chest was obtained. COMPARISON: None FINDINGS: The cardiac silhouette is within normal limits. No focal consolidation is seen within the lungs. There is no large pleural effusion or pneumothorax. The bony structures of the chest are unremarkable as visualized. IMPRESSION: No acute cardiopulmonary disease. Report Dictated on --- Final --- Dictating Physician: MD SOTELO JONATHAN R Signed Date and Time: 11/13/2021 1:05 pm Signed by: MD SOTELO JONATHAN R Transcribed Date and Time: 11/13/2021 1:06 [facility] Darius Sotelo MD - 11/13/2021 Patient Name: PENG LORA Diagnostic Radiology ACCESSION EXAM DATE/TIME PROCEDURE ORDERING PROVIDER [id number] 11/13/2021 13:02 EST CR Chest Portable MD [place] VIJAY CPT code 40056 Reason For Exam (CR Chest Portable) palpitations Report PORTABLE CHEST X-RAY CLINICAL INDICATION: Palpitations A portable frontal view of the chest was obtained. COMPARISON: None FINDINGS: The cardiac silhouette is within normal limits. No focal consolidation is seen within the lungs. There is no large pleural effusion or pneumothorax. The bony structures of the chest are unremarkable as visualized. IMPRESSION: No acute cardiopulmonary disease. Report Dictated on --- Final --- Dictating Physician: MD SOTELO JONATHAN R Signed Date and Time: 11/13/2021 1:05 pm Signed by: MD SOTELO JONATHAN R Transcribed Date and Time: 11/13/2021 1:06 [facility] Work Phone: Radiology Study observation (narrative) [facility] Work Phone: XR CHEST PORTABLEOrdered By: Darius Sotelo on 11-13-2021 [facility] Work Phone: Vital Signs Date Time Vital Sign Value Performing Clinician Facility 03-27-2024 11:37-0400 Body temperature 97.2 [degF] Dr. Michael Spencer Work Phone: [facility] 03-27-2024 11:37-0400 Diastolic blood pressure 86 mm[Hg] Dr. Michael Spencer Work Phone: [facility] 03-27-2024 11:37-0400 Heart rate 70 /min Dr. Michael Spencer Work Phone: [facility] 03-27-2024 11:37-0400 Respiratory rate 16 /min Dr. Michael Spencer Work Phone: [facility] 03-27-2024 11:37-0400 SaO2% (BldA) [Mass fraction] 100 % Dr. Michael Spencer Work Phone: [facility] 03-27-2024 11:37-0400 Systolic blood pressure 105 mm[Hg] Dr. Michael Spencer Work Phone: [facility] 03-27-2024 10:11-0400 Body height 193.[address] Michael Spencer Work Phone: [facility] 03-27-2024 10:11-0400 Body mass index (BMI) [Ratio] 21 kg/m2 Dr. Michael Spencer Work Phone: [facility] 03-27-2024 10:11-0400 Body weight 78.[address] Michael Spencer Work Phone: [facility] 03-10-2024 09:02-0400 Body mass index (BMI) [Ratio] 21.6 kg/m2 Dr. Michael Spencer Work Phone: [facility] 03-10-2024 09:02-0400 Body temperature 97.3 [degF] Dr. Michael Spencer Work Phone: [facility] 03-10-2024 09:02-0400 Body weight 80.[address] Michael Spencer Work Phone: [facility] 03-10-2024 09:02-0400 Diastolic blood pressure 91 mm[Hg] Dr. Michael Spencer Work Phone: [facility] 03-10-2024 09:02-0400 Heart rate 96 /min Dr. Michael Spencer Work Phone: [facility] 03-10-2024 09:02-0400 Respiratory rate 18 /min Dr. Michael Spencer Work Phone: [facility] 03-10-2024 09:02-0400 SaO2% (BldA) [Mass fraction] 100 % Dr. Michael Spencer Work Phone: [facility] 03-10-2024 09:02-0400 Systolic blood pressure 140 mm[Hg] Dr. Michael Spencer Work Phone: [facility] 02-04-2024 09:02-0500 Body mass index (BMI) [Ratio] 21.8 kg/m2 Dr. Michael Spencer Work Phone: [facility] 02-04-2024 09:02-0500 Body temperature 97.4 [degF] Dr. Michael Spencer Work Phone: [facility] 02-04-2024 09:02-0500 Body weight 81.[address] Michael Spencer Work Phone: [facility] 02-04-2024 09:02-0500 Diastolic blood pressure 72 mm[Hg] Dr. Michael Spencer Work Phone: [facility] 02-04-2024 09:02-0500 Heart rate 48 /min Dr. Michael Spencer Work Phone: [facility] 02-04-2024 09:02-0500 Respiratory rate 16 /min Dr. Michael Spencer Work Phone: [facility] 02-04-2024 09:02-0500 SaO2% (BldA) [Mass fraction] 99 % Dr. Michael Spencer Work Phone: [facility] 02-04-2024 09:02-0500 Systolic blood pressure 116 mm[Hg] Dr. Michael Spencer Work Phone: [facility] 01-29-2024 10:54-0500 Body temperature 97.6 [degF] Dr. Michael Spencer Work Phone: [facility] 01-29-2024 10:54-0500 Diastolic blood pressure 78 mm[Hg] Dr. Michael Spencer Work Phone: [facility] 01-29-2024 10:54-0500 Heart rate 64 /min Dr. Michael Spencer Work Phone: [facility] 01-29-2024 10:54-0500 Respiratory rate 16 /min Dr. Michael Spencer Work Phone: [facility] 01-29-2024 10:54-0500 SaO2% (BldA) [Mass fraction] 99 % Dr. Michael Spencer Work Phone: [facility] 01-29-2024 10:54-0500 Systolic blood pressure 124 mm[Hg] Dr. Michael Spencer Work Phone: [facility] 01-29-2024 07:39-0500 Body height 193.[address] Michael Spencer Work Phone: [facility] 01-29-2024 07:39-0500 Body mass index (BMI) [Ratio] 21.8 kg/m2 Dr. Michael Spencer Work Phone: [facility] 01-29-2024 07:39-0500 Body weight 81.[address] Michael Spencer Work Phone: [facility] 01-28-2024 09:34-0500 Body mass index (BMI) [Ratio] 21.9 kg/m2 Dr. Michael Spencer Work Phone: [facility] 01-28-2024 09:34-0500 Body temperature 100 [degF] Dr. iMchael Spencer Work Phone: [facility] 01-28-2024 09:34-0500 Body weight 81.[address] Michael Spencer Work Phone: [facility] 01-28-2024 09:34-0500 Diastolic blood pressure 70 mm[Hg] Dr. Michael Spencer Work Phone: [facility] 01-28-2024 09:34-0500 Heart rate 96 /min Dr. Michael Spencer Work Phone: [facility] 01-28-2024 09:34-0500 Respiratory rate 14 /min Dr. Michael Spencer Work Phone: [facility] 01-28-2024 09:34-0500 SaO2% (BldA) [Mass fraction] 97 % Dr. Michael Spencer Work Phone: [facility] 01-28-2024 09:34-0500 Systolic blood pressure 110 mm[Hg] Dr. Michael Spencer Work Phone: [facility] 10-09-2023 11:35-0500 Body mass index (BMI) [Ratio] 20.8 kg/m2 Dr. Michael Spencer Work Phone: [facility] 10-09-2023 11:35-0500 Body temperature 99.3 [degF] Dr. Michael Spencer Work Phone: [facility] 10-09-2023 11:35-0500 Body weight 77.[address] Michael Spencer Work Phone: [facility] 10-09-2023 11:35-0500 Diastolic blood pressure 84 mm[Hg] Dr. Michael Spencer Work Phone: [facility] 10-09-2023 11:35-0500 Heart rate 113 /min Dr. Michael Spencer Work Phone: [facility] 10-09-2023 11:35-0500 Respiratory rate 18 /min Dr. Michael Spencer Work Phone: [facility] 10-09-2023 11:35-0500 SaO2% (BldA) [Mass fraction] 97 % Dr. Michael Spencer Work Phone: [facility] 10-09-2023 11:35-0500 Systolic blood pressure 126 mm[Hg] Dr. Michael Spencer Work Phone: [facility] 07-21-2023 22:04-0400 Body height 193.[address] Michael Spencer Work Phone: [facility] 07-21-2023 22:04-0400 Body mass index (BMI) [Ratio] 21 kg/m2 Dr. Michael Spencer Work Phone: [facility] 07-21-2023 22:04-0400 Body temperature 97.6 [degF] Dr. Michael Spencer Work Phone: [facility] 07-21-2023 22:04-0400 Body weight 78.[address] Michael Spencer Work Phone: [facility] 07-21-2023 22:04-0400 Diastolic blood pressure 90 mm[Hg] Dr. Michael Spencer Work Phone: [facility] 07-21-2023 22:04-0400 Heart rate 98 /min Dr. Michael Spencer Work Phone: [facility] 07-21-2023 22:04-0400 Respiratory rate 16 /min Dr. Michael Spencer Work Phone: [facility] [facility] 07-21-2023 22:04-0400 SaO2% (BldA) [Mass fraction] 100 % Dr. Michael Spencer Work Phone: [facility] 07-21-2023 22:04-0400 Systolic blood pressure 145 mm[Hg] Dr. Michael Spencer Work Phone: [facility] 04-19-2023 09:29-0400 Heart rate 76 /min Dr. Michael Spencer Work Phone: [facility] 04-19-2023 09:29-0400 Respiratory rate 18 /min Dr. Michael Spencer Work Phone: [facility] 04-19-2023 09:29-0400 SaO2% (BldA) [Mass fraction] 100 % Dr. Michael Spencer Work Phone: [facility] 04-19-2023 09:18-0400 Diastolic blood pressure 95 mm[Hg] Dr. Michael Spencer Work Phone: [facility] 04-19-2023 09:18-0400 Systolic blood pressure 135 mm[Hg] Dr. Michael Spencer Work Phone: [facility] 04-19-2023 07:45-0400 Body height 193.[address] Michael Spencer Work Phone: [facility] 04-19-2023 07:45-0400 Body mass index (BMI) [Ratio] 20.7 kg/m2 Dr. Michael Spencer Work Phone: [facility] 04-19-2023 07:45-0400 Body temperature 97.2 [degF] Dr. Michael Spencer Work Phone: [facility] 04-19-2023 07:45-0400 Body weight 77.[address] Michael Spencer Work Phone: [facility] 04-11-2023 14:09-0400 Diastolic blood pressure 82 mm[Hg] Dr. Michael Spencer Work Phone: [facility] 04-11-2023 14:09-0400 Heart rate 112 /min Dr. Michael Spencer Work Phone: [facility] 04-11-2023 14:09-0400 Systolic blood pressure 138 mm[Hg] Dr. Michael Spencer Work Phone: [facility] 04-11-2023 14:09-0400 Body mass index (BMI) [Ratio] 21.4 kg/m2 Dr. Michael Spencer Work Phone: [facility] 04-11-2023 14:09-0400 Body weight 79.[address] Michael Spencer Work Phone: [facility] 04-11-2023 14:09-0400 Respiratory rate 18 /min Dr. Michael Spencer Work Phone: [facility] 04-11-2023 14:09-0400 SaO2% (BldA) [Mass fraction] 100 % Dr. Michael Spencer Work Phone: [facility] 11-13-2021 12:31-0500 Diastolic blood pressure 94 mm[Hg] Rivera Washington MD Work Phone: [facility] 11-13-2021 12:31-0500 Heart rate 78 /min Rivera Washington MD Work Phone: [facility] 11-13-2021 12:31-0500 Respiratory rate 16 /min Rivera Washington MD Work Phone: [facility] 11-13-2021 12:31-0500 SaO2% (BldA) [Mass fraction] 100 % Rivera Washignton MD Work Phone: [facility] 11-13-2021 12:31-0500 Systolic blood pressure 135 mm[Hg] Rivera Washington MD Work Phone: [facility] 11-13-2021 12:06-0500 Body temperature 99.39 [degF] Rivera Washington MD Work Phone: [facility] 11-13-2021 12:06-0500 Body weight 74.84 kg Rivera Washington MD Work Phone: [facility] Encounters Encounter Date Encounter Type Care Provider Facility Start: 01-26-2025 End: 01-26-2025 ambulatory Michael Spencer Facility:[facility] Start: 11-26-2024 End: 11-26-2024 Emergency department patient visit Dakota Jarquin Facility:[facility] Start: 11-25-2024 End: 11-25-2024 Emergency department patient visit Olwell Marilyn Facility:[facility] Start: 09-03-2024 Emergency department patient visit MICHAEL SPENCER Facility:[facility] Start: 07-28-2024 End: 07-28-2024 ambulatory Michael Spencer Facility:[facility] Start: 03-27-2024 Non-patient / Non-visit Dr. Enrique Work Phone: [facility] Start: 03-27-2024 End: 03-27-2024 Admission to same day surgery center Dr. Michael Sepncer Work Phone: [facility]End[facility] Work Phone: Start: 03-27-2024 End: 03-27-[address] Michael Spencer Work Phone: [facility] Work Phone: Start: 03-10-2024 End: 03-10-[address] Michael Spencer Work Phone: [facility] Work Phone: Start: 03-10-2024 End: 03-10-2024 ambulatory Michael Spencer Facility:[facility] Start: 02-24-2024 ambulatory Michael Spencer Facilit y:[facility] Start: 02-04-2024 End: 02-04-[address] Michael Spencer Work Phone: [facility] Work Phone: Start: 02-04-2024 End: 02-04-2024 ambulatory Angelabambi De La Pazshandra Facility:[facility] Start: 01-29-2024 End: 01-29-2024 Emergency department patient visit Dr. Michael Spencer Work Phone: [facility]Emergency Department Work Phone: Start: 01-28-2024 End: 01-28-[address] Michael Spencer Work Phone: [facility] Work Phone: Start: 01-28-2024 End: 01-28-2024 ambulatory Michael Spencer Facility:[facility] Start: 10-09-2023 End: 10-09-[address] Michael Spencer Work Phone: [facility] Work Phone: Start: 07-21-2023 End: 07-21-2023 Emergency department patient [facility] Start: 05-06-2023 End: 05-06-[address] Michael Spencer Work Phone: [facility] Work Phone: Start: 05-06-2023 End: 05-06-[address] Michael Spencer Work Phone: [facility]-Pulmonary Services/Neurology Start: 04-19-2023 End: 04-19-2023 Emergency department patient visit Dr. Michael Spencer Work Phone: [facility]Emergency [facility] Start: 04-11-2023 End: 04-11-[address] Michael Spencer Work Phone: [facility] Start: 11-13-2021 End: 11-13-2021 Emergency department patient visit Rivera Washington MD Work Phone: [facility] Comment on above: Palpitations (Primar y Dx) Procedures Date Procedure Procedure Detail Performing Clinician Start: 03-27-[address] Carl Spencer Work Phone: Start: 01-29-2024 Measurement of occul t blood in stool specimen using immunoassay Dr. Michael Spencer Work Phone: Start: 01-29-2024 Computed tomography of abdomen and pelvis with contrast Dr. Michael Spencer Work Phone: Start: 04-19-2023 Plain chest X-ray Dr. Courtney Spencer Work Phone: Start: 11-15-2021 Antibody screen Comment on above: Performed By: #### T SCR #### [facility] [address], [place] [address] Start: 11-13-2021 Radiologic exam ches t single view Rivera Washington MD Work Phone: Start: 11-13-2021 Basic metabolic pane l calcium total Rivera Washington MD Work Phone: Start: 11-13-2021 Ecg routine ecg w/le ast 12 lds w/i&r Rivera Washington MD Work Phone: Plan of Treatment Date Care Activity Detail Author Start: 03-27-2024 Patient discharge [facility] [place] Start: 01-29-2024 [facility] Start: 01-28-2024 Patient referral [facility] Work Phone: Start: 04-19-2023 [facility] Start: 08-02-2021 Influenza vaccination Flu vaccine (# 1) [facility] Start: 2012 COVID-19 Vaccine (1) COVID-19 Vaccin e (1) [facility] Colonoscopy [facility] EKG 12 Lead - Chest Pain EKG 12 Lead - Chest Pain ECG STAT 11/13/2021 12:04 PM EST [facility] Work Phone: Patient Education [facility] Work Phone: Patient referral [facility] Work Phone: [facility] Immunizations Immunization Date Immunization Notes Care Provider [facility] 07-21-2023 tetanus toxoid, redu stephani diphtheria toxoid, and acellular pertussis vaccine, adsorbed Dr. Michael Spencer Work Phone: [facility] Payers Date Payer Category Payer Self-pay [id number] 2022 Unknown [id number] Unknown [facility] [id number] Unknown [facility] [id number] Unknown [facility] [id number] Unknown [id number] Unknown [id number] Unknown [id number] Unknown [id number] Unknown [id number] Unknown [id number] Unknown [id number] Unknown [id number] Unknown [id number] Unknown [id number] Unknown [id number] Social History Date Type Detail Facility Start: 11-13-2021 Tobacco smoking stat [facility] Light tobacco smoker [employer] Work Phone: Start: 11-13-2021 Tobacco use and exposure Smokeless tobacco non-user [employer] Work Phone: Start: 11-13-2021 Alcohol intake Current drinke r of alcohol (finding) [employer] Work Phone: Start: 11-13-2021 History SDOH Alcohol Comment daily [employer] Work Phone: Start: 2000 Sex Assigned At Not on file [facility] [employer] Work Phone: Exposure to SARS-CoV -2 (event) Not sure [employer] Work Phone: Start: 04-19-2023 End: 03-23-2024 Tobacco smoking status NHIS Unknown if ever smoked [facility] Start: 2000 Sex Assigned At Male [facility] Goals Date Patient Goal Desired Activity /State Mental Status Date Assessment Result Facility 03-27-2024 Cognitive function Light Pain [facility] Work Phone: 04-19-2023 Cognitive function Level Of Cons ciousness Awake;Alert;Appropriate [facility] Work Phone: Clinical Notes 11-16-2021 to 03-27-2024 Note Date & Type Note Facility 03-27-2024 Procedure note [facility] 03-27-2024 Procedure note [facility] 03-27-2024 Procedure note [facility] 03-27-2024 Procedure note [facility] 03-27-2024 Note [facility] Medical Records Department [address] [place] [id number] History Physical Exam 03/27/24 1014 MR#: [id number] Acct: [id number] Name: PENG LORA Rep #: [id number] : 2000 23 From: Estee Leyva MD PCP: Dr. Michael Spencer, DO Status:[facility] Location: [place] [address] History and Physical Date of Admission: 03/27/24 Date of Service: 03/10/24 MR#: [id number] Acct: [id number] Name: PENG LORA Rep #: [id number] : 2000 Provider: Dr. Estee Leyva MD Age/Sex: 23/M Location: [facility] Status: Signed Intake Vital Signs 02/03/2409:02 03/10/2409:02 Height 6 ft 4 in 6 ft 4 in Weight: 179 lb 6 oz 177 lb 6 oz BMI 21.8 21.6 BP 116/72 140/91 H Blood Pressure Location Lt brachial Rt brachial Position Sitting Sitting Respiration 16 18 Pulse 48 L 96 Pulse Source Monitor Monitor Temp 97.4 F L 97.3 F L Temp Source Temporal Temporal Pulse Oximetry (%) 99 100 Oxygen Delivery Method room air room air Intake Visit Reasons: hx of polyps Chief Complaint: hx of polpys Is patient in pain?: No Allergies cephalexin Allergy (Mild, Verified 03/10/24 09:08) Rash-HivesPenicillins [PCN] Allergy (Verified 03/10/24 09:08) Rashsertraline [From Zoloft] Adverse Reaction (Severe, Verified 03/10/24 09:08) Other Medications multivitamin (Daily Multi-Vitamin tablet) 1 tab PO DAILY 04/11/23 [History Confirmed 03/10/24] venlafaxine 75 mg capsule,extended release 24 hr (Effexor XR) 75 mg PO DAILY #90 caps 10/09/23 [Rx Confirmed 03/10/24] metoprolol succinate 50 mg tablet,extended release 24 hr 50 mg PO DAILY #30 tabs 10/29/23 [Rx Confirmed 03/10/24] metronidazole 500 mg tablet 500 mg PO Q6H #40 tabs 01/29/24 [Rx Confirmed 03/10/24] omeprazole 40 mg capsule,delayed release 40 mg PO QDAY #30 caps 03/12/24 [Rx Confirmed 03/12/24] PFSH Medical History (Updated 03/12/24 @ 08:[address] Estee Leyva MD) Allergic rhinitis Anxiety Anxiety about health Chest pain Condyloma acuminata GERD (gastroesophageal reflux disease) Hearing problem History of suicidal ideation IBS (irritable bowel syndrome) Inguinal lymphadenitis Left ventricular dilatation Non-sustained ventricular tachycardia Palpitations Pectus excavatum Pre-syncope Seasonal allergies Family History Grandfather Cancer Parkinson disease Thyroid disorderGrandmother Cancer OsteoporosisFather Arthritis Myocardial infarction, Onset Age: 54 Cancer skin Spinal stenosis Heart disease atrial fibMother Thyroid disorderOther CAD (coronary artery disease) Social History Smoking Status: Current some day smoker tobacco type: e-cigarettes alcohol intake: current alcohol intake frequency: a few times a week Alcohol type: beer substance use type: does not use what type of physical activity do you participate in: walking and running frequency: 3-4 times per week seatbelt use: always do you feel safe at home: Yes HPI HPI HPI: 23 y/o M presents for EGD Colonoscopy due to GERD, blood in stool. Pt had colonoscopy [place] [address] Santiago- pt thought he had 3 polyps but actually only one hyperplastic in sigmoid and negative random biopsy and normal TI bx to r/o crohns. Pt denies FH of IBD/colon cancer. Pt states his BM go between diarrhea/constipation. Pt has occasionally blood in stool- bright red/maroon occ black about 2 x a week, with stool in between with no blood. BM daily. no known hemorrhoids, occ n/v, daily GERD-burning up esophagus-not on medication. ROS General General: No weight change, appetite, fatigue, colon cancer, breast cancer or weakness HEENT HEENT: No difficulty swallowing, eye injury, eye surgery, swollen glands or hoarseness Endo Endocrine: No thyroid disease, diabetes mellitus, thyroid cancer, Hair loss, heat intolerance or cold intolerance Skin Skin: No rash or changing moles Musc Musculoskeletal: No back problems, arthritis, rheumatoid arthritis, gout or joint pain Cardio Cardiovascular: Yes high blood pressure; No murmur, pacemaker, heart disease, atrial fibrillation, heart attack, heart stent, palpitations, shortness of breat with exertion or chest pain Psych Psychiatric: Yes depression and anxiety; No hearing voices Resp Respiratory: No shortness of breath, No sleep apnea, No cough, No COPD, No asthma, No emphysema and No wheezing Gastro Gastrointestinal: Yes abdominal pain, Yes nausea or vomiting, Yes diarrhea, Yes constipation, Yes blood in stool, No acid reflux, Yes hemorrhoids, No ulcers, No gallbladder proble (more content not included)... [facility] 09-14-2023 Note HNO ID: [id number] Author: Note, Interface Service: ? Author Type: ? Type: Progress Notes Filed: 09/14/2023 5:10 AM Note Text: Epic Scheduled Downtime: 09/14/2023 1:00:00 AM to 09/14/2023 1:28:00 AM [facility] 07-21-2023 Discharge summary Note Date/Time July 21, 2023 10:45pm [facility] Medical Records Department [address] [place] [address] Emergency Department Summary 07/21/23 MR#: [id number] Acct: [id number] Name: PENG LORA Rep #:[id number] : 2000 23 From: Grady Grigsby MD PCP: Dr. Michael Spencer, DO Status:RE G ER Location: ED HPI History of Present Illness Chief Complaint: Laceration Narrative Narrative: Patient sustained a cut to the right index finger distally while cutting tomatoes. No other injuries tetanus is not up-to-date [facility] Medical History Allergic rhinitis Anxiety Anxiety about health Chest pain Condyloma acuminata Hearing problem IBS (irritable bowel syndrome) Inguinal lymphadenitis Left ventricular dilatation Non-sustained ventricular tachycardia Palpitations Pectus excavatum Pre-syncope Seasonal allergies Home Medications omeprazole 20 mg capsule,delayed release 20 mg PO DAILY PRN Heartburn 09/20/21 [History Last Taken 11/13/21] multivitamin (Daily Multi-Vitamin tablet) 1 tab PO DAILY 04/11/23 [History Last Taken Unknown] Allergy/AdvReac Type Severity Reaction Status Date / Time cephalexin Allergy Mild Rash-Hives Verified 07/21/23 22:06 Penicillins [PCN] Allergy Rash Verified 07/21/23 22:06 Family History Grandfather Cancer Parkinson disease Thyroid disorder Grandmother Cancer Osteoporosis Father Arthritis Myocardial infarction, Onset Age: 54 Cancer skin Spinal stenosis Heart disease atrial fib Mother Thyroid disorder Other CAD (coronary artery disease) Social History Smoking Status: Current some day smoker tobacco type: cigarettes and e-cigarettes alcohol intake: current alcohol intake frequency: a few times a week substance use type: does not use what type of physical activity do you participate in: walking, running and weight training frequency: 3-4 times per week ROS ROS ED ROS Narrative Past medical history: none Medications: Reviewed Social history: Noncontributory Review of systems: Musculoskeletal: Lacerations in HPI Skin: As above Neurological: No weakness or paresthesias Hematologic: No easy bleeding or easy bruising EXAM Physical Exam Narrative Exam Narrative: Physical exam General: Patient does not appear in significant distress . Head: Normocephalic, Atraumatic Neck: No C-spine tenderness Cardiovascular: Normal distal pulses Back: Nontender, Normal Inspection. Extremities: 2 cm laceration over the pulp of the index finger of the right hand it is horizontal. No tendon involvement. Skin: No abrasions, no lacerations Neurological: Normal strength and sensation Const Vital Signs: 07/21/23 22:04 Temperature 97.6 F L Temperature Source Temporal Pulse Rate 98 Respiratory Rate 16 Blood Pressure 145/90 H Blood Pressure Mean 108 Pulse Ox 100 Oxygen Delivery Method Room Air PROC Procedures Lacerations Finger laceration: Length: 0.79 in Depth: Sub Q Shape: Linear Prep: Shure-Clens Laceration repair: Lidocaine and Local Number of Sutures/Georges: 3 Suture Information: Ethilon and 4-0 Comment: Patient tolerated procedure MDM MDM MDM Narrative Medical decision making narrative: Patient sustained a laceration, at this time there is no need for an x-ray. Tetanus was updated. Laceration was sutured. Patient be discharged with wound care instructions. Discharge Plan Triage Chief Complaint: Laceration ED Provider: Grady Grigsby Dx/Rx/DC Orders Clinical Impression: Tetanus-diphtheria (Td) vaccination, Finger laceration Instructions: ED Laceration, Hand: All Closures Prescriptions: No Action omeprazole 20 mg capsule,delayed release(DR/EC) 20 mg PO DAILY PRN (Reason: Heartburn) multivitamin [Daily Multi-Vitamin] Tablet 1 tab PO DAILY Stand Alone Forms: ED Work / School Excuse Primary Care Provider: Michael Spencer Referrals: Michael Spencer DO [Primary Care Provider] - 10 Day for suture removal Activity Restrictions/Additional Instructions: Stitches to be removed in 10 days What to do if you have Problems For any increased pain, shortness of breath, bleeding, nausea or vomiting, chestpain, or any unexpected problems, contact your Primary Care Provider. Call [facility] ([phone]) or report to the closest Emergency Room. Call 911 if necessary. 07/21/232244 <Electronically signed by Grady Grigsby MD> Cosigner Signature (if applicable): CC: Dr. Michael Spencer DO ~ Signed [facility] Work Phone: [phone]) 944-917812-16-2021 NoteHNO ID: [id number] Author: Shelley Ashby RN Service: Care Management Author Type: Registered Nurse Type: Care Mgt Initial Assessment Filed: 11/16/2021 8:27 AM Note Text: CARE MANAGEMENT PROGRESS NOTE SERVICE DATE: 11/16/2021 SERVICE TIME: 8:26 AM LOS: 1 day [place] Given: No Reason Not Given: [...] SIGNATURE: Shelley Ashby RN PATIENT NAME: Peng Lora DATE: November 16, 2021 TIME: 8:26 AM PAGER/CONTACT #[phone] Diagnosis Palpitations- Primary documented in this encounter [facility] Work Phone: Evaluation note* Diagnosis Onset Date Resolution Status Palpitations acute [facility] Work Phone: Evaluation note* Diagnosis Onset Date Resolution Status Bipolar 1 disorder, depressed, moderate acute Palpitations acute Bipolar 1 disorder, depressed, moderate acute Colon polyps acute Palpitations acute Pectus excavatum chronic [facility] Work Phone: Evaluation note* Diagnosis Onset Date Resolution Status Bipolar 1 disorder, depressed, moderate acute Colon polyps acute Palpitations acute Pectus excavatum chronic Blood per rectum acute GERD (gastroesophageal reflux disease) acute [facility] Work Phone: History and physical note Author Estee Leyva [facility] March 27, 2024 10:47am Note Date/Time March 27, 2024 10: 15am [facility] System Medical Records Department [address] [place] [address] History & Physical Exam 03/27/24 1014 MR#: [id number] Acct: [id number] Name: PENG LORA Rep #:[id number] : 2000 23 From: Estee Leyva MD PCP: Dr. Michael Spencer, DO Status:[facility] Location: [place] [address] History and Physical Date of Admission: 03/27/24 Date of Service: 03/10/24 MR#: [id number] Acct: [id number] Name: PENG LORA Rep #: [id number] : 2000 Provider: Dr. Estee Leyva MD Age/Sex: 23/M Location: [facility] Status: Signed Intake Vital Signs 02/03/2409:02 03/10/2409:02 Height 6 ft 4 in 6 ft 4 in Weight: 179 lb 6 oz 177 lb 6 oz BMI 21.8 21.6 BP 116/72 140/91 H Blood Pressure Location Lt brachial Rt brachial Position Sitting Sitting Respiration 16 18 Pulse 48 L 96 Pulse Source Monitor Monitor Temp 97.4 F L 97.3 F L Temp Source Temporal Temporal Pulse Oximetry (%) 99 100 Oxygen Delivery Method room air room air Intake Visit Reasons: hx of polyps Chief Complaint: hx of polpys Is patient in pain?: No Allergies cephalexin Allergy (Mild, Verified 03/10/24 09:08) Rash-HivesPenicillins [PCN] Allergy (Verified 03/10/24 09:08) Rashsertraline [From Zoloft] Adverse Reaction (Severe, Verified 03/10/24 09:08) Other Medications multivitamin (Daily Multi-Vitamin tablet) 1 tab PO DAILY 04/11/23 [History Confirmed 03/10/24] venlafaxine 75 mg capsule,extended release 24 hr (Effexor XR) 75 mg PO DAILY #90caps 10/09/23 [Rx Confirmed 03/10/24] metoprolol succinate 50 mg tablet,extended release 24 hr 50 mg PO DAILY #30 tabs112/29/22 [Rx Confirmed 03/10/24] metronidazole 500 mg tablet 500 mg PO Q6H #40 tabs 01/29/24 [Rx Confirmed 03/10/24] omeprazole 40 mg capsule,delayed release 40 mg PO QDAY #30 caps 03/12/24 [Rx Confirmed 03/12/24] PFSH Medical History (Updated 03/12/24 @ 08:[address] Estee Leyva MD) Allergic rhinitis Anxiety Anxiety about health Chest pain Condyloma acuminata GERD (gastroesophageal reflux disease) Hearing problem History of suicidal ideation IBS (irritable bowel syndrome) Inguinal lymphadenitis Left ventricular dilatation Non-sustained ventricular tachycardia Palpitations Pectus excavatum Pre-syncope Seasonal allergies Family History Grandfather Cancer Parkinson disease Thyroid disorderGrandmother Cancer OsteoporosisFather Arthritis Myocardial infarction, Onset Age: 54 Cancer skin Spinal stenosis Heart disease atrial fibMother Thyroid disorderOther CAD (coronary artery disease) Social History Smoking Status: Current some day smoker tobacco type: e-cigarettes alcohol intake: current alcohol intake frequency: a few times a week Alcohol type: beer substance use type: does not use what type of physical activity do you participate in: walking and running frequency: 3-4 times per week seatbelt use: always do you feel safe at home: Yes HPI HPI HPI: 23 y/o M presents for EGD & Colonoscopy due to GERD, blood in stool. Pt had colon[place] [address] [place]- pt thought he had 3 polyps but actually only one hyperplastic in sigmoid and negative random biopsy and normal TI bx to r/o crohns. Pt denies FH of IBD/colon cancer. Pt states his BM go between diarrhea/constipation. Pt has occasionally blood in stool- bright red/maroon occblack about 2 x a week, with stool in between with no blood. BM daily. no known hemorrhoids, occ n/v, daily GERD-burning up esophagus-not on medication. ROS General General: No weight change, appetite, fatigue, colon cancer, breast cancer or weakness HEENT HEENT: No difficulty swallowing, eye injury, eye surgery, swollen glands or hoarseness Endo Endocrine: No thyroid disease, diabetes mellitus, thyroid cancer, Hair loss, heat intolerance or cold intolerance Skin Skin: No rash or changing moles Musc Musculoskeletal: No back problems, arthritis, rheumatoid arthritis, gout or joint pain Cardio Cardiovascular: Yes high blood pressure; No murmur, pacemaker, heart disease, atrial fibrillation, heart attack, heart stent, palpitations, shortness of breat with exertion or chest pain Psych Psychiatric: Yes depression and anxiety; No hearing voices Resp Respiratory: No shortness of breath, No sleep apnea, No cough, No COPD, No asthma, No emphysema and No wheezing Gastro Gastrointestinal: Yes abdominal pain, Yes nausea or vomiting, Yes diarrhea, Yes constipation, Yes blood in stool, No acid reflux, Yes hemorrhoids, No ulcers, Nogallbladder problem and No black,tarry stools [place] Hematologic: No blood thinners, No blood disorders, No bleeding, No anemia and No blood clots Neuro Neurologic: No numbness, No tingling and No weakness Exam Const General: cooperative, healthy appearing, comfortable and no acute distress HENMT Head: normocephalic and atraumatic Neck Neck: supple Resp Effort & Inspection: normal respiratory effort Cardio Rate: regular rate GI Inspection: non-distended Palpation: soft, no hernias and nontender Skin General: no rashes or lesions noted Neuro General: CN's II-XI intact bilaterally Extrem General: normal to inspection Psych Mental Status: mental status grossly normal Attitude: cooperative Assessment and Plan Assessment and Plan (1) GERD (gastroesophageal reflux disease): Status: Acute (2) Blood per rectum: Status: Acute Orders: Orders Colonoscopy 03/27/24 Maddie ORDOÑEZ PA-C EGD 03/27/24 Maddie ORDOÑEZ PA-C Medications: New omeprazole swallow whole; do not crush, chew, dissolve, cut, break 40 mg PO QDAY [address] Estee Leyva MD Plan Will send in script for omeprazole as pt has GERD daily. Also d/w pt that he can always out eat medication if he has something that irritates it like spicy foods, alcohol, etc. I have discussed the above with the patient. I have offered the patient esophagogastroduodenoscopy and colonoscopy for evaluation. I have explained the risks/benefits of the procedure and described the procedure. I have discussed the risks with the patient, including but not limited to: infection, bleeding, perforation of the GI tract requiring emergency surgery, inability to complete the procedure, injury to any internal organs, complications of anesthesia, etc. - the patient understands and agrees to proceed. I have answered all the patient's questions to the patient's satisfaction and the patient has no further questions. The patient has been given instructions for the colon cleansing preparation. 1 day of clears, MiraLAX Dulcolax prep. Estee Leyva M.D. Pager: [phone] [facility] [address] [place] [address], [address] [place] [address] Office: [phone] Coding Level of Care Code Off vis,new,level 3 Diagnoses GERD (gastroesophageal reflux disease) K21.9 Blood per rectum K62.5 03/12/24 0901 <Electronically signed by Estee Leyva MD> Date Estee Leyva MD 03/27/24 1015 <Electronically signed by Estee Leyva MD> Cosigner Signature (if applicable): CC: Dr. Michael Spencer DO; Dr. Estee Leyva MD~ Signed ADDENDUM by Dr. Estee Leyva MD on 03/27/24 at 1047 Addendum I have examined the patient the following changes are noted: Patient has not started the omeprazole as he wanted to wait until the scope was done. Patient still having the abdominal bloating. Patient has had dark red blood 3 times since office visit none in the last couple days. 03/27/24 1047<Electronically signed by Estee Leyva MD> Cosigner Signature (if applicable): cc: Dr. Michael Spencer DO; Dr. Estee Leyva MD ~* Signed [facility] Work Phone: Hospital Discharge instructions* Instructions* Rivera Washington MD - 11/13/2021 Call your doctor about adjusting medications; Return for shortness of breath * Attachments The following attachments cannot be sent through Care Everywhere. * Palpitations (Icelandic) documented in this [facility] Work Phone: Hospital Discharge instructions Additional Instructions St[facility] Work [facility]: Summary Purpose Family History No Family History Records Found Relationship Condition Age at Onset Recorded Date/T reza Not Specified Coronary artery disease Unknown grandfather Malignant neoplasm Unknown Parkinson's disease Unknown Disorder of thyroid Unknown grandmother Malignant neoplasm Unknown Osteoporosis Unknown father Arthritis Unknown Myocardial infarction 54 Malignant neoplasm Unknown Spinal stenosis Unknown Cardiac disease Unknown mother Disorder of thyroid Unknown Advance Directives No Advanced Directives Records Found Advance Directive Response Recorded Date/ Time Living Will No April 19, 2023 7 :51am Power of Inpatient Services Rn No April 19, 2023 7:51am Advance Directive Response Recorded Date/ Time Living Will No July 21 10:21pm Power of Inpatient Services Rn No July 21, 2 023 10:21pm Advance Directive Response Recorded Date/ Time Living Will No January 29, 024 10:54am Power of Inpatient Services Rn No January 29, 2024 10:54am Advance Directive Response Recorded Date/ Time Living Will No March 23, 2024 10:38am Power of Inpatient Services Rn No March 23 10:38am Chief Complaint and Reason for Visit Chief Complaint Palpitations EORDERS palpitations PALPITATIONS Reason for Visit Palpitations Chief Complaint Palpitations EORDERS palpitations PALPITATIONS LAC Reason for Visit Palpitations Chief Complaint 1 m fu 3 m fu abd pain Reason for Visit Bipolar 1 disorder, depressed, moderate Palpitations Bipolar 1 disorder, depressed, moderate Colon polyps Palpitations Pectus excavatum Chief Complaint 3 m fu abd pain ACUTE [facility] FU-COLITIS hx of polyps Reason for Visit Bipolar 1 disorder, depressed, moderate Colon polyps Palpitations Pectus excavatum Blood per rectum GERD (gastroesophageal reflux disease) Additional Source Comments Reason for Visit (unrecogniz ed section and content) Reason Comments Palpitations Scheduled Active and Recently Administ ered Medications (unrecognized section and content) Medication Order 11/11/2021 11/12/2021 11/13/2021 sodium chloride flush 0.9 % injection 3 mL(Linked Group 1) 3 mL, IntraVENous, EVERY 8 HOURS, First dose on Sat11/13/21 at 1208, Flush line with 3-5 mL 1208 (Due)2007 (Due) Linked Groups Order Group 1: Saline lock IV (COMPLETED) Routine, CONTINUOUS, Starting on Sat11/13/21 at 1215, Until Specified And sodium chloride flush 0.9 % injection 3 mLJump to med 3 mL, IntraVENous, EVERY 8 HOURS, First dose on Sat11/13/21 at 1208
Flush line with 3-5 mL
(unrecognized sect ion and content) No Status Records FoundNo Status Records FoundNo Status Records FoundNo Status Records Found INFORMATION SOURCE (unrecogn ized section and content) DATE CREATED AUTHOR 11/16/2021 [facility] DATE CREATED AUTHOR AUTHOR'S ORGANIZ ATION 02/22/2022 [facility] DATE CREATED AUTHOR AUTHOR'S ORGANIZ ATION 09/05/2024 [facility] DATE CREATED AUTHOR AUTHOR'S ORGANIZ ATION 01/27/2025 [facility] Teams (unrecognized sec tion and content) Team Status: Active Member Role Status Dates Dr. Michael Spencer , DO Family Provider Active Dr. Michael Spencer , DO Primary Care Provider Active Team Status: Inactive Member Role Status Dates Dr. Michael Spencer , DO Primary Care Provider, Referr ing Provider Active Marisa Barroso CRUTCHING CONTRACTOR, CRUTCHING CONTRACTOR-C Attending Provider Active Team Status: Inactive Member Role Status Dates Dr. Michael Spencer DO Primary Care Provider Active Marisa Barroso CRUTCHING CONTRACTOR, CRUTCHING CONTRACTOR-C Attending Provider, Referring P rovider Active Team Status: Inactive Member Role Status Dates Dr. Michael Spencer , DO Primary Care Provider Active Joey Sultana MD Attending Provider, Emergency Provid er Active Team Status: Inactive Member Role Status Dates Dr. Michael Spencer DO Primary Care Provider Active Dr. Grady Grigsby MD Emergency Provider Active Team Status: Inactive Member Role Status Dates Dr. Michael Spencer , DO Primary Care Pr ovider, Attending Provider, Referring Provider Active Team Status: Inactive Member Role Status Dates Dr. Michael Spencer DO Primary Care Provider Active Dr. Kwesi Villarreal , DO Emergency Provider Active Team Status: Inactive Member Role Status Dates Dr. Michael Spencer DO Primary Care Provider, Referr ing Provider Active Angela Cortez NP-C Attending Provider Active Team Status: Inactive Member Role Status Dates Dr. Michael Spencer DO Primary Care Provider, Referr ing Provider Active Dr. Estee Leyva MD Attending Provider Active Team Status: Active Member Role Status Dates Dr. Michael Spencer DO Primary Care Provider Active Dr. Estee Leyva MD Attending Provi chet, Referring Provider, Other Provider Active Team Status: Inactive Member Role Status Dates Dr. Michael Spencer DO Primary Care Provider Active Dr. Estee Leyva MD Attending Provider, Referring Provider Active Team Status: Inactive Member Role Status Dates Dr. Michael Spencer DO Primary Care Provider Active Dr. Kwesi Villarreal , DO Attending Provider, Emergency P rovider Active Goals (unrecognized section and content) Goals may be documented in a n alternate sectionGoals may be documented in an alternate sectionGoals may be documented in an alternate section FOR RECORDS PERTAINING TO PATIENTS WHO ARE [...] BE BASED ON THE PRIMARY CLINICAL RECORDS. [facility] [employer] [facility]. provides no warranty or guarantee of the accuracy or completeness of information in this document.
[2025-08-15 11:47] VITALS: BP 117/75; PULSE 95; RESP 16; TEMP 36.6; O2SAT 100
== END 2025-08-15 11:49 | disposition home or self-care (01) ==
LOC: ED 11:29
PROVIDERS: Emergency Provider Emergency Medicine; PCP Family Medicine; Visit Provider Emergency Medicine
DX: S81.811A Laceration without foreign body, right lower leg, initial encounter (principal); F41.9 Anxiety disorder, unspecified; F17.290 Nicotine dependence, other tobacco product, uncomplicated; K21.9 Gastro-esophageal reflux disease without esophagitis; W18.42XA Slipping, tripping and stumbling without falling due to stepping into hole or opening, initial encounter; Z79.899 Other long term (current) drug therapy
CPT/HCPCS: 12032; 73590; 99284